=== PATIENT | female | born 1965 | race Caucasian/White ===

== ENCOUNTER 2020-02-11 06:12 | Day surgery (SDC) | payer OTHER ==
[2020-02-09 14:52] VITALS: BMI 35.4
--- OUTSIDE RECORDS SUMMARY | 2020-02-11 06:19 | XMS ---
:1965 Author Organization [facility] Care Team Providers Name Role Phone BANDAR SWIFT Unavailable Unavailable Re-disclosure Warning The records that you are about to access may contain information from federally- assisted alcohol or drug abuse programs. If such information is present, then the following federally mandated warning applies: This information has been disclosed to you from records protected by federal confidentiality rules (42 CFR part 2). The federal rules prohibit you from making any further disclosure of this information unless further disclosure is expressly permitted by the written consent of the person to whom it pertains or as otherwise permitted by 42 CFR part 2. A general authorization for the release of medical or other information is NOT sufficient for this purpose. The Federal rules restrict any use of the information to criminally investigate or prosecute any alcohol or drug abuse patient.The records that you are about to access may contain highly sensitive health information, the redisclosure of which is protected by Article 27-F of the [place] State Public Health law. If you continue you may haveaccess to information: Regarding HIV / AIDS; Provided by facilities licensed or operated by the [facility] Office of Mental Health; or Provided by the [facility] Office for People With Developmental Disabilities. If such information is present, then the following [facility] mandated warning applies: This information has been disclosed to you from confidential records which are protected by state law. State law prohibits you from making any further disclosure of this information without the specific written consent of the person to whom it pertains, or as otherwise permitted by law. Any unauthorized further disclosure in violation of state law may result in a fine or retirement sentence or both. A general authorization for the release of medical or other information is NOT sufficient authorization for further disclosure. Encounters Encounter Providers Location Date Indications Data Source(s ) Outpatient 03/10/2019 05:14:32 [facility] - [facility] PM EDT Hospital Outpatient 02/27/2019 01:00:00 Bon Thomas kendrickadelina Kiah PM EDT - 02/27/2019 [facility] 01:14:35 PM EDT Patient discharged. Outpatient 02/25/2019 04:21:00 PM [facility] 02/25/2019 03:44:26 PM Nabeel jorge Ayala [facility] Outpatient 02/18/2019 11:51:37 AM [facility]T [facility] 02/17/2019 11:22:54 AM [facility] 02/15/2019 03:20:00 AM [facility] 02/15/2019 12:25:00 AM [facility] In[facility] Admitter: HATEM 02/14/2019 12:00:00 AM [facility] 05:58:00 PM EDT Abd pain Patient discharged. Outpatient 01/23/2019 04:11:53 [facility] PM [facility]T [facility] 01/13/2019 05:52:54 [facility] PM [facility] 01/07/2019 11:50:36 [facility] AM [facility]T [facility] 01/03/2019 08:00:00 [facility] AM [facility]T [facility] 01/02/2019 02:10:00 [facility] PM [facility]T [facility] In[facility] Admitter: HATEM 01/02/2019 12:00:00 abd pain na usea [facility] - Good [facility] AM EDT - 01/06/2019 and vomiting [facility] 06:17:00 PM EDT abd pain nausea and vomiting Patient discharged. Inpatient 01/02/2019 12:00:00 AM EDT [facility] Medications Medication Brand Start Product Dose Route Administrative Pharmacy [facility] Indications Reaction Description Data Name Date Form Instructions Instructions Source(s) Ondansetron ondans 02/17/ 4 mg Oral active Take 1 Tab Bon 4 MG etron 2018 by mouth [facility] Disintegrat (ZOFRA 12:00: every eig ht Kiah ing Oral N ODT) 00 AM (8) hours as Health Tablet 4 mg EDT needed for System Inc ondansetron disint Nausea for (ZOFRAN egrati up to 3 ODT) 4 mg ng days. disintegrat tablet ing tablet Acetaminoph HYDROc Oral aborted S/P Take 1 Tab Bon en 325 MG / odone- 2019 {tbl} laparoscopic by mouth [facility] Hydrocodone acetam 12:00: cholecystect e very six Kiah Bitartrate inophe 00 AM sav (6) hours a s Health 5 MG Oral n EDT needed for Syst em Inc Tablet (NORCO Pain for up HYDROcodone ) to 3 days. -acetaminop 5-325 Max Daily hen (NORCO) mg per Amount: 4 5-325 mg tablet Tabs. per tablet S/P laparoscopic cholecystectomy Acetaminophen acetaminophen 02/17/2019 650 Oral active Take 2 Bon 325 MG Oral (TYLENOL) 325 12:00:00 AM mg Tabs by [facility] Tablet mg tablet EDT mouth Kiah acetaminophen every six H ealth (TYLENOL) 325 (6) hours S ystem mg tablet as needed Inc for Pain for up to 3 days. Ibuprofen 200 ibuprofen 02/17/2019 600 Oral active Take 3 Bon MG Oral Tablet (ADVIL) 200 mg 12:00:00 AM mg Tabs by [facility] ibuprofen tablet EDT mouth Kiah (ADVIL) 200 mg every six Health tablet (6) hours System as needed Inc for Pain for up to 3 days. Hydromorphone HYDROmorphone 02/16/2019 1 mg IntraVENou compl eted 1 mg, Bon Hydrochloride (PF) 01:25:37 PM s Intr aVENo [facility] 1 MG/ML (DILAUDID) EDT us, EVERY C harity Injectable injection 1 mg 4 HO URS [facility] System HYDROmorphone NEEDED, Inc (PF) Starting (DILAUDID) Sun injection 1 mg 02/16/19 at 1325, Until Sun02/17/19 at 1324, Severe Pain Medication administered onsite Metoprolol metoprolol 02/16/2019 50 Oral aborted hypertens ion 50 mg, Oral, Bon Tartrate 50 tartrate 09:00:00 AM mg 2 TIMES [facility] MG Oral (LOPRESSOR) EDT DAILY, Fir [facility] Tablet tablet 50 mg dose on [facility] metoprolol 02/16/19 at s tem tartrate 0900, Until Inc (LOPRESSOR) Discontinued tablet 50 mg hypertension Medication administered onsite atorvastatin atorvastatin 02/15/2019 10 Oral aborted 10 mg, Oral, Bon 10 MG Oral (LIPITOR) 09:00:00 PM mg EV FREDERICK [facility] Tablet tablet 10 mg EDT BEDTIME, [facility] First dose o [facility] (LIPITOR) 02/15/19 [facility] tem tablet 10 mg at 2100, Inc Until Discontinued Medication administered onsite dextrose 0617-9022-48 02/15/2019 50 IntraVENous aborted 50 mL/hr, at Bon 5% and 07:00:00 PM mL/h 50 mL/hr, S [facility] 0.9% NaCl EDT IntraVENous, Ch arity infusion CONTINUOUS, Heal th Starting Sat System 02/15/19 at Inc 1900, Until Sun02/17/19 at 2058 Medication administered onsite Bacitracin bacitracin 02/15/2019 Topical aborted Topical, Bon 0.5 UNT/MG 500 06:37:48 PM NEEDED, [facility] Topical unit/gram EDT Starting Clara rity Ointment ointment 02/15/19 [facility] bacitracin at 1837, Syste m 500 unit/gram Until Mon I nc ointment 02/17/19 at 2058, Other, skin abrasions Medication administered onsite Insulin insulin 02/15/2019 SubCUTAneous aborted SubCUTAneous, Bon Lispro 100 lispro 12:00:00 PM EVERY 6 HOURS, [facility] UNT/ML (HUMALOG) EDT First dose on Kiah Injectable injection Sat at Health Solution 1200, Until Syst em insulin Discontinued Inc lispro (HUMALOG) injection Medication administered onsite Metoprolol metoprolol 02/15/2019 100 Oral completed 100 mg, Bon Tartrate 100 tartrate 11:00:00 AM mg O ral, [facility] MG Oral (LOPRESSOR) EDT ONCE, 1 Ch arity Tablet tablet 100 mg dose, [facility] metoprolol 02/15/19 System tartrate at 1100 Inc (LOPRESSOR) tablet 100 mg Medication administered onsite 1 ML heparin 02/15/2019 5000 SubCUTAneous aborted 5,000 Units, Bon heparin (porcine) 09:00:00 AM U SubCU TAneous, [facility] sodium, injection EDT EVERY 8 HOUR S, Kiah porcine 5,000 First dose on He alth 5000 UNT/ML Units 02/15/19 at System Injection 0900, Until Inc heparin Discontinued (porcine) injection 5,000 Units Medication administered onsite ondansetron 64762-306-98 02/15/2019 4 IntraVENous aborted 4 mg, Bon (ZOFRAN) 08:01:05 AM mg IntraVENo us, [facility] injection 4 EDT EVERY 4 HOURS Kiah mg NEEDED, Health Starting Sat System 02/15/19 at Inc 0801, Until Sun02/17/19 at 2058, Nausea or Vomiting Medication administered onsite Diphenhydramine diphenhydrAMINE 02/15/2019 25 Oral aborted 25 mg, Bon Hydrochloride 25 (BENADRYL) 08:01:05 AM mg Oral, [facility] MG Oral Capsule capsule 25 mg EDT EVERY 4 Kiah diphenhydrAMINE HOURS Health (BENADRYL) NEEDED, System capsule 25 mg Starting In c 02/15/19 at 0801, Until Sun02/17/19 at 2058, Itching Medication administered onsite Acetaminophen 325 MG / HYDROcodone-acetaminophen 02/15/2019 1 Or al aborted 1 Tab, Bon Hydrocodone Bitartrate 5 (NORCO) 5-325 mg per 08:01:05 AM {tbl} Oral, [facility] MG Oral Tablet tablet 1 Tab EDT EV FREDERICK 4 Kiah HYDROcodone-acetaminophen HOURS Health (NORCO) 5-325 mg per NEED ED, System tablet 1 Tab Starting Inc 02/15/19 at 0801, Until Sun02/17/19 at 2058, Moderate Pain Medication administered onsite Hydromorphone HYDROmorphone 02/15/2019 1 IntraVENous comp leted 1 mg, Bon Hydrochloride (PF) 08:01:05 AM mg Intr aVENous, [facility] 1 MG/ML (DILAUDID) EDT EVERY 4 MONICA RS Kiah Injectable injection 1 mg N EEDED, Health Solution Starting Sat Sys tem HYDROmorphone 02/15/19 at Inc (PF) 0801, Until (DILAUDID) 02/16/19 injection 1 mg at 0800, Severe Pain Medication administered onsite Glucose 0.4 dextrose 02/15/2019 15 g Oral aborted 1 Tube (15 g), Bon MG/MG Oral 40% 08:01:05 AM Oral, A S [facility] Gel dextrose (GLUTOSE) EDT NEEDED, Kiah 40% oral gel 1 Starting Sat H ealth (GLUTOSE) Tube 02/15/19 at Syst em oral gel 1 08, Until In c Tube 02/17/19 at 2058, Hypoglycemia Medication administered onsite Acetaminophen acetaminophen 02/15/2019 650 Oral aborted 650 mg, Bon 325 MG Oral (TYLENOL) 08:01:05 AM mg O ral, [facility] Tablet tablet 650 mg EDT EVERY 4 C harity acetaminophen HOURS He alth (TYLENOL) NEEDED, System tablet 650 mg Starting In c 02/15/19 at 0801, Until 02/17/19 at 2058, Mild Pain, Fever Medication administered onsite Glucagon 1 glucagon 02/15/2019 1 IntraMUSCular aborted 1 mg, Bon MG (GLUCAGEN) 08:01:05 AM mg IntraMU SCular, [facility] Injection injection 1 EDT NEEDE D, Kiah glucagon mg Starting Sat Hea lth (GLUCAGEN) 02/15/19 at Sys tem injection 1 800, Until M on Inc mg 02/17/19 at 2058, Hypoglycemia Medication administered onsite dextrose 0202-3788-27 02/15/2019 IntraVENous aborted 12.5-25 g Bon (D50) 08:01:05 AM (25-50 mL), [facility] infusion EDT IntraVENous, Clara rity 12.5-25 g NEEDED, Heal th Starting Sat System 02/15/19 at Inc 0801, Until 02/17/19 at 2058, Hypoglycemia Medication administered onsite Magnesium magnesium 02/15/2019 30 Oral aborted 3 0 mL, Oral, Bon Hydroxide 80 hydroxide 08:01:05 AM mL DAILY PRN, [facility] MG/ML Oral (MILK OF EDT Starting S at Kiah Suspension MAGNESIA) 02/15/19 a t Health magnesium 400 mg/5 mL 08, Un til System hydroxide oral Mon 02/17/19 at Inc (MILK OF suspension 2058, MAGNESIA) 30 mL Constipation 400 mg/5 mL oral suspension 30 mL Medication administered onsite piperacillin-tazobactam 02/15/2019 3.375 IntraVENous ab orted 3.375 g, Bon (ZOSYN) 3.375 g in 0.9% 05:42:00 AM g IntraVENous, [facility] sodium chloride EDT EVERY 8 H OURS, [facility] (MBP/ADV) 100 mL MBP Firs t dose on Health 02/15/19 at Syste m 0542, Until Inc Discontinued, at 25 mL/hr Medication administered onsite diphenhydrAMINE 86435-850-45 02/15/2019 25 IntraVENous com pleted 25 mg, Bon (BENADRYL) 03:55:00 AM mg IntraVE Nous, [facility] injection 25 mg EDT NOW, 1 do se, Kiah 02/15/19 Health at 0355 System Inc Medication administered onsite Hydromorphone HYDROmorphone 02/15/2019 completed 1 dose, Bon Hydrochloride 1 (PF) (DILAUDID) 12:45:56 AM Starting [facility] MG/ML 1 mg/mL EDT Sat Kiah Injectable injection 02/15/19 a Health Solution 0045, System HYDROmorphone Until Sat I nc (PF) (DILAUDID) 02/15/19 a t 1 mg/mL 1247 injection Medication administered onsite Hydromorphone HYDROmorphone 02/15/2019 1 IntraVENous comp leted 1 mg, Bon Hydrochloride (PF) 12:39:00 AM mg Intr aVENous, [facility] 1 MG/ML (DILAUDID) EDT NOW, 1 dose , Kiah Injectable injection 1 mg 02/15/19 Health Solution at 0039 System HYDROmorphone Inc (PF) (DILAUDID) injection 1 mg Medication administered onsite iopamidol [id number] 02/15/2019 100 IntraVENous completed 100 mL, Bon (ISOVUE 12:23:00 AM mL IntraVENou s, [facility] 300) 61 % EDT RAD ONCE, 1 Clara rity contrast dose, Sat Health injection 02/15/19 at Syst em 100 mL 0023 Inc Medication administered onsite sodium 55700-280-14 02/14/2019 IntraVENous aborted 5-40 mL, Bon chloride 10:00:00 PM IntraVENo us, [facility] (NS) flush EDT EVERY 8 Charit y 5-40 mL HOURS, First Heal th dose on Fri System 02/14/19 at Inc 2200, Until Discontinued Medication administered onsite sodium 1144-5154-41 02/14/2019 1000 IntraVENous completed 1,000 mL, Bon chloride 09:40:00 PM mL IntraVENo us, [facility] 0.9 % EDT 1 dose Kiah bolus Health infusion System 1,000 mL Inc Medication administered onsite ondansetron 77936-323-79 02/14/2019 4 IntraVENous complet ed 4 mg, Bon (ZOFRAN) 09:40:00 PM mg IntraVENo us, [facility] injection 4 EDT NOW, 1 dose, Kiah mg 02/14/19 Health at [address] [facility] Medication administered onsite diatrizoate sari-diatrizoat [id number] 02/14/2019 30 Oral compl eted 30 mL, Bon sod 09:40:00 PM mL Oral, [facility] (-GASTROVIEW,GASTROGRAFIN) EDT RAD Kiah 66-10 % contrast solution 30 ONCE, 1 Health mL dose, System Fri [facility] 02/14/19 at 2140 Medication administered onsite fentaNYL [id number] 02/14/2019 50 IntraVENous completed 50 mcg, Bon citrate 09:40:00 PM ug IntraVENou s, [facility] (PF) EDT NOW, 1 dose, Kiah injection 02/14/19 Hea lth 50 mcg at [address] [facility] Medication administered onsite sodium 95854-522-32 02/14/2019 IntraVENous aborted 5-40 mL, Bon chloride 09:38:29 PM IntraVENo us, [facility] (NS) flush EDT NEEDED, Clara rity 5-40 mL Starting Fri Heal 02/14/19 at System 2138, Until Inc 02/17/19 at 2059, Line Patency Medication administered onsite atorvastatin 10 atorvastatin 10 Oral active Take 10 mg by Bon MG Oral Tablet (LIPITOR) 10 mg mo uth daily. [facility] atorvastatin mg tablet Ch arity (LIPITOR) 10 mg Heal th tablet System Inc OTHER Oral active Take by Bon mouth daily. [facility] Vitamin D, [facility] Calcium, Health fiber, System Vitamin B12 Inc (all OTC) Metformin metformin 500 Oral aborted Take 50 0 mg Bon hydrochloride (GLUCOPHAGE) mg by mouth [facility] 500 MG Oral 500 mg tablet joshua y. [facility] Tablet Health metformin System (GLUCOPHAGE) Inc 500 mg tablet Metoprolol metoprolol 100 Oral active hypertension Take 100 mg Bon Tartrate 50 MG (LOPRESSOR) 50 mg by mouth [facility] Oral Tablet mg tablet daily. [facility] metoprolol Indications: H ealth (LOPRESSOR) 50 HYPERTENSI ON System mg tablet Inc hypertension canagliflozin (INVOKANA Oral active Take by mouth. [facility] PO) [facility] Insurance Providers Payer name Policy type Policy ID Covered Covered green party's Policy P ovi / Coverage green party ID relationship to [place] Inf ormation type dut[facility] [id number] NON CAP [facility] [id number] [facility] [id number] 100% DISCOUNT [facility] CHOICE [id number] PLUS Medicaid BBA D [id number] SELF [id number] K WELLCARE I 1954 SELF [id number] ESSENTAL - [id number] [facility] Wellcare [place] I [id number] SELF [id number] K [facility] [id number] 100% DISCOUNT [facility] [id number] HEALTHCARE [place] [id number] HEALTHCARE [facility] CHOICE [id number] PLUS [facility] [id number] [facility] [id number] CARE MEDICAID [place] [id number] BRITT SELF PAY Self Pay [id number] SELF PAY [id number] SELF PAY [id number] [facility] [id number] MEDICAID Problems, Conditions, and Diagnoses Code Display Name Description Problem Type Effective Data Dates Source(s) K80.00 Acute calculous Acute calculous [id number] 02/15/2019 [facility] cholecystitis cholecystitis 12:00:00 AM [facility] K56.609 SBO (small bowel SBO (small bowel [id number] 01/02/2019 Nabeel n [facility] obstruction) obstruction) 12:00:00 AM [facility] M65.30 Trigger finger of Trigger finger of [id number] 12/08/2013 [facility] left hand left hand 12:00:00 AM [facility] K80.00 Calculus of Calculus of Diagnosis 02/14/2019 [facility] - Good gallbladder with gallbladder with 08:54:44 PM [facility] acute acute cholecystitis EDT [facility] cholecystitis without obstruction without obstruction K81.0 Acute Acute cholecystitis Diagnosis 02/14/2019 [facility] - Good cholecystitis 08:54:44 PM [facility] K56.609 Unspecified Unspecified Diagnosis 01/02/2019 [facility] - Good intestinal intestinal 11:51:16 AM [facility] obstruction, obstruction, EDT Hospital unspecified as to unspecified as to partial versus partial versus complete complete obstruction obstruction 1255 1255 hypertension Diagnosis [facility] [id number] S/P laparoscopic Diagnosis [facility] cholecystectomy [facility] 1255 1255 hypertension Diagnosis [facility] Surgeries/Procedures Procedure Description Date Indications Data Source(s) GLUCOSE, POC GLUCOSE, POC Routine 02/17/2019 02/17/2019 Bon 2:40 PM EDT 06:40:00 [facility] CHOLECYSTECTOMY CHOLECYSTECTOMY 02/17/2019 cholecystitis 02/17/2019 Bon LAPAROSCOPIC LAPAROSCOPIC 11:54 AM , 03:54:00 PM [facility] EDT cholelithiasi EDT - Ch arity s 02/17/2019 Healt h 05:56:00 PM Syst em EDT Inc GLUCOSE, POC GLUCOSE, POC Routine 02/17/2019 02/17/2019 Bon 11:11 AM 03:11:00 PM [facility] PROTHROMBIN TIME PROTHROMBIN TIME Routine 02/17/2019 Bon + INR + INR 5:59 AM EDT 09:59:00 AM [facility] CBC WITH CBC WITH Routine 02/17/2019 02/17/2019 Bon AUTOMATED DIFF AUTOMATED DIFF 5:59 AM EDT 09:59: 00 AM [facility] [employer] PTT PTT Routine 02/17/2019 02/17/2019 Nabeel n 5:59 AM EDT 09:59:00 AM [facility] [employer] METABOLIC PANEL, METABOLIC PANEL, Routine 02/17/2019 Bon BASIC BASIC 5:59 AM EDT 09:59:00 AM [facility] [employer] GLUCOSE, POC GLUCOSE, POC Routine 02/17/2019 02/17/2019 Bon 5:52 AM EDT 09:52:00 AM [facility] [employer] GLUCOSE, POC GLUCOSE, POC Routine 02/17/2019 02/17/2019 Bon 12:23 AM 04:23:00 AM [facility] CHEST PORT XR CHEST PORT Routine 02/16/2019 9 Bon 4:51 PM EDT 08:51:15 PM [facility] [employer] GLUCOSE, POC GLUCOSE, POC Routine 02/16/2019 02/16/2019 Bon 4:38 PM EDT 08:38:00 PM [facility] [employer] GLUCOSE, POC GLUCOSE, POC Routine 02/16/2019 02/16/2019 Bon 12:43 PM 04:43:00 PM [facility] ABD W MRCP MRI ABD W MRCP Routine 02/16/2019 019 Bon WO CONT WO CONT 12:04 PM 04:04:47 PM Sec ne [facility] [employer] GLUCOSE, POC GLUCOSE, POC Routine 02/16/2019 02/16/2019 Bon 5:55 AM EDT 09:55:00 AM [facility] [employer] CBC WITH CBC WITH Routine 02/16/2019 02/16/2019 Bon AUTOMATED DIFF AUTOMATED DIFF 4:45 AM EDT 08:45: 00 AM [facility] [employer] METABOLIC PANEL, METABOLIC PANEL, Routine 02/16/2019 Bon BASIC BASIC 4:45 AM EDT 08:45:00 AM [facility] [employer] HEPATIC FUNCTION HEPATIC FUNCTION Routine 02/16/2019 Bon PANEL PANEL 4:45 AM EDT 08:45:00 AM [facility] [employer] HC GLUCOSE POCT HC GLUCOSE POCT Routine 02/16/201902/16 Bon 12:06 AM 04:06:00 AM Sec [facility] GLUCOSE, POC GLUCOSE, POC Routine 02/15/2019 02/15/2019 Bon 4:13 PM EDT 08:13:00 PM [facility] HEMOGLOBIN A1C HEMOGLOBIN A1C Blood in 02/15/20192018 Bon W/O EAG W/O EAG Lab 12:05 PM 04:05:00 PM Sec [facility] CBC W/O DIFF CBC W/O DIFF STAT 02/15/2019 02/15/2019 Bon Blood in 12:05 PM 04:05:00 PM Se cours Lab [facility] METABOLIC PANEL, METABOLIC PANEL, STAT 02/15/2019 Bon COMPREHENSIVE COMPREHENSIVE Blood in 12:05 PM 04:05:00 [facility] GLUCOSE, POC GLUCOSE, POC Routine 02/15/2019 02/15/2019 Bon 11:42 AM 03:42:00 PM Sec [facility] HC GLUCOSE POCT HC GLUCOSE POCT Routine 02/15/201902/15 Bon 8:24 AM EDT 12:24:00 PM [facility] US ABD LTD US ABD LTD STAT 02/15/2019 02/15/2019 Bon 3:43 AM EDT 07:43:30 AM [facility] CT ABD PELV W CT ABD PELV W STAT 02/15/2019 9 Bon CONT CONT 12:50 AM 04:50:26 AM Sec [facility] URINALYSIS W/ URINALYSIS W/ STAT 02/14/2019 9 Bon RFLX MICROSCOPIC RFLX MICROSCOPIC 10:05 PM 02:05 :00 AM [facility] CBC WITH CBC WITH STAT 02/14/2019 02/15/2019 Bon AUTOMATED DIFF AUTOMATED DIFF 10:05 PM 02:05:00 AM [facility] METABOLIC PANEL, METABOLIC PANEL, STAT 02/14/2019 Bon COMPREHENSIVE COMPREHENSIVE 10:05 PM 02:05:00 AM [facility] LIPASE LIPASE STAT 02/14/2019 02/15/2019 Nabeel n 10:05 PM 02:05:00 AM Sec ne [facility] GLUCOSE, POC GLUCOSE, POC Routine 01/06/2019 01/06/2019 Bon 4:11 PM EDT 08:11:00 PM [facility] GLUCOSE, POC GLUCOSE, POC Routine 01/06/2019 01/06/2019 Bon 12:09 PM 04:09:00 PM Sec ne [facility] GLUCOSE, POC GLUCOSE, POC Routine 01/06/2019 01/06/2019 Bon 7:05 AM EDT 11:05:00 AM [facility] CBC WITH CBC WITH Routine 01/06/2019 01/06/2019 Bon AUTOMATED DIFF AUTOMATED DIFF 4:01 AM EDT 08:01: 00 AM [facility] METABOLIC PANEL, METABOLIC PANEL, Routine 01/06/2019 Bon BASIC BASIC 4:01 AM EDT 08:01:00 AM [facility] GLUCOSE, POC GLUCOSE, POC Routine 01/05/2019 01/06/2019 Bon 8:24 PM EDT 12:24:00 AM [facility] GLUCOSE, POC GLUCOSE, POC Routine 01/05/2019 01/05/2019 Bon 4:37 PM EDT 08:37:00 PM [facility] XR ABD (KUB) XR ABD (KUB) Routine 01/05/2019 01/05/2019 Bon 12:00 PM 04:00:33 PM Sec ne [facility] HC GLUCOSE POCT HC GLUCOSE POCT Routine 01/05/201901/05 Bon 11:33 AM 03:33:00 PM Sec ne [facility] CBC WITH CBC WITH Routine 01/05/2019 01/05/2019 Bon AUTOMATED DIFF AUTOMATED DIFF 6:45 AM EDT 10:45: 00 AM [facility] Aviir METABOLIC PANEL, METABOLIC PANEL, Routine 01/05/2019 Bon BASIC BASIC 6:45 AM EDT 10:45:00 AM [facility] GLUCOSE, POC GLUCOSE, POC Routine 01/04/2019 01/05/2019 Bon 8:56 PM EDT 12:56:00 AM [facility] [employer] GLUCOSE, POC GLUCOSE, POC Routine 01/04/2019 01/04/2019 Bon 5:18 PM EDT 09:18:00 PM [facility] [employer] GLUCOSE, POC GLUCOSE, POC Routine 01/04/2019 01/04/2019 Bon 4:25 PM EDT 08:25:00 PM [facility] [employer] GLUCOSE, POC GLUCOSE, POC Routine 01/04/2019 01/04/2019 Bon 11:23 AM 03:23:00 PM [facility] [employer] XR ABD (AP AND XR ABD (AP AND Routine 01/04/2019 019 Bon ERECT OR DECUB) ERECT OR DECUB) 10:32 AM 02:32:2 0 PM [facility] [employer] HC GLUCOSE POCT HC GLUCOSE POCT Routine 01/04/201901/04 Isaiah 8:21 AM EDT 12:21:00 PM [facility] [employer] CBC WITH CBC WITH Routine 01/04/2019 01/04/2019 Isaiah AUTOMATED DIFF AUTOMATED DIFF 3:22 AM EDT 07:22: 00 AM [facility] [employer] HC TROPONIN I HC TROPONIN I Blood in 01/04/2019 01/05/20 19 Isaiah QUANT QUANT Lab 3:22 AM EDT 07:22:00 AM [facility] [employer] METABOLIC PANEL, METABOLIC PANEL, Routine 01/04/2019 Isaiah BASIC BASIC 3:22 AM EDT 07:22:00 AM [facility] SHOP.CA GLUCOSE, POC GLUCOSE, POC Routine 01/03/2019 01/04/2019 Bon 8:53 PM EDT 12:53:00 AM [employer] CTA CHEST W OR W CTA CHEST W OR W STAT 01/03/2019 Isaiah WO CONT WO CONT 8:44 PM EDT 12:44:56 AM [facility] [employer] GLUCOSE, POC GLUCOSE, POC Routine 01/03/2019 01/03/2019 Bon 4:06 PM EDT 08:06:00 PM [facility] [employer] TROPONIN I TROPONIN I STAT 01/03/2019 01/03/2019 Bon 2:46 PM EDT 06:46:00 PM [facility] EKG, 12 LEAD, EKG, 12 LEAD, STAT 01/03/2019 9 Bon INITIAL INITIAL 2:41 PM EDT 06:41:37 PM [facility] EKG, 12 LEAD, EKG, 12 LEAD, STAT 01/03/2019 9 Bon INITIAL INITIAL 2:39 PM EDT 06:39:34 PM [facility] GLUCOSE, POC GLUCOSE, POC Routine 01/03/2019 01/03/2019 Bon 12:19 PM 04:19:00 PM Sec ours EDT [facility] HC GLUCOSE POCT HC GLUCOSE POCT Routine 01/03/201901/03 Bon 10:04 AM 02:04:00 PM [facility] (AP AND XR ABD (AP AND Routine 01/03/2019 019 Bon ERECT OR DECUB) ERECT OR DECUB) 8:48 AM EDT 12:4 8:53 PM [facility] CBC WITH CBC WITH Routine 01/03/2019 01/03/2019 Isaiah AUTOMATED DIFF AUTOMATED DIFF 4:38 AM EDT 08:38: 00 AM [facility] HC TROPONIN I HC TROPONIN I STAT 01/03/2019 9 Bon QUANT QUANT 4:38 AM EDT 08:38:00 AM [facility] METABOLIC PANEL, METABOLIC PANEL, Routine 01/03/2019 Isaiah BASIC BASIC 4:38 AM EDT 08:38:00 AM [facility] TROPONIN I TROPONIN I STAT 01/02/2019 01/03/2019 Bon 11:59 PM 03:59:00 AM Sec ours EDT [facility] LIPID PANEL LIPID PANEL STAT 01/02/2019 01/03/2019 Bon 11:59 PM 03:59:00 AM Sec ours EDT [facility] XR ABD (KUB) XR ABD (KUB) STAT 01/02/2019 01/02/2019 Bon 6:23 PM EDT 10:23:28 [facility] CT ABD PELV W CT ABD PELV W STAT 01/02/2019 9 Isaiah CONT CONT 4:38 PM EDT 08:38:48 [facility] URINALYSIS W/ URINALYSIS W/ STAT 01/02/2019 9 Isaiah RFLX MICROSCOPIC RFLX MICROSCOPIC 1:52 PM EDT 05 :52:00 PM [facility] CBC WITH CBC WITH STAT 01/02/2019 01/02/2019 Isaiah AUTOMATED DIFF AUTOMATED DIFF 12:20 PM 04:20:00 PM [facility] EDT [facility] HC TROPONIN I HC TROPONIN I STAT 01/02/2019 9 Isaiah QUANT QUANT 12:20 PM 04:20:00 PM Sec ours EDT [facility] METABOLIC PANEL, METABOLIC PANEL, STAT 01/02/2019 Isaiah COMPREHENSIVE COMPREHENSIVE 12:20 PM 04:20:00 PM [facility] EDT [facility] [employer]OP[employer]CA LIPASE LIPASE STAT 01/02/2019 01/02/2019 Nabeel n 12:20 PM 04:20:00 PM [facility] HC GLUCOSE POCT HC GLUCOSE POCT Routine 01/02/201901/02 Bon 11:38 AM 03:38:00 PM Sec ours EDT [facility] EKG, 12 LEAD, EKG, 12 LEAD, STAT 01/02/2019 9 Isaiah INITIAL INITIAL 11:37 AM 03:37:10 PM [facility] 2D ECHO COMPLETE 2D ECHO COMPLETE Routine 01/02/2019 Isaiah ADULT (TTE) W OR ADULT (TTE) W OR 12:00 AM 04:00 :00 AM [facility] WO CONTRAST WO CONTRAST EDT [facility] Results ID Date Data Source [id number] 10/21/2019 05:00:00 PM EDT [facility] Name Value Range Interpretation Code Description Data Gissell rce(s) Supporting Document(s ) SARS-CoV-2 [facility] RNA Resp Ql BENNY+probe This lab was ordered by [employer] and reported by [facility] DLMP. ID Date Data Source [id number] 10/14/2019 12:00:00 PM EDT [facility] Name Value Range Interpretation Code Description Data Gissell rce(s) Supporting Document(s ) SARS-CoV-2 [facility] RNA Resp Ql BENNY+probe This lab was ordered by [employer] and reported by [facility]. ID Date Data Source [id number] 09/24/2019 11:00:00 AM EDT [facility] Name Value Range Interpretation Code Description Data Gissell rce(s) Supporting Document(s ) SARS-CoV-2 [facility] RNA Resp Ql BENNY+probe This lab was ordered by [employer] and reported by [facility]. ID Date Data Source [id number] 08/20/2019 12:00:00 PM EDT [facility] Name Value Range Interpretation Description Data Sup porting Code Source(s) Document(s ) SARS CoV-2 [facility] Interpretation This lab was ordered by [facility] and reported by [employer]. ID Date Data Source [id number] 03/10/2019 05:14:[address] [facility] RICHA # [id number] to telephone patient. Received message. Left message. Name Value Range Interpretation Code Description Data Gissell rce(s) Supporting Document(s ) ID Date Data Source [id number] 02/25/2019 04:21:[address] [facility] RICHA CallSpoke with patient. De nied any abd pain. Following a low fat diet. DiscussedDM-glucose yesterday 98, did no t test yet todayHow are you feeling since my last call to you?betterDid you attend yo ur follow up appointment with your MD yet?YESSaw pcpAppt with surgeon 02/27Did your doctor change any of your Rxs at your visit? (only if they had avisit)?YESChan ged pain med from percocet to ibuprofenAre you still taking all your medications?YE SAre you still receiving services that were part of your discharge plan?N/AFollow Up call again [phone] Name Value Range Interpretation Code Description Data Gissell rce(s) Supporting Document(s ) ID Date Data Source [id number] 02/20/2019 02:50:[address] [facility] XR ABD (KUB) (Final result)Result time 0 01/02/19 18:30:22Final result by Pilar Agustin DO (01/02/19 18:30:22)Impression : IMPRESSION:1. NGT good position as above.2. Left midabdomen ileus; no obstr uction or free air identified.Narrative: XR ABD (KUB)PRIOR: NoneHISTORY: Limited to that provided by the emergency department at the time of theexamination; Patient comp laining of chest pain, abdominal pain with n/v thatstarted yesterday. FINDINGS: An NGT is present and in good position. Mild mid left sided abdominalileus is identif ied. No abnormal densities are identified. No bowel wallthickening, pneumatosis or ankur e air is identified in the visualized limitedabdomen/upper pelvis.The visualiz ed osseous structures are unremarkable for age.Radiology interpretation reviewed by Benjamin Garner, Benjamin Green MDI, Anya Arriola am serving as a scribe to document services personallyperformed by Benjamin Garner MD based on my observ ation and the provider'sstatements to me.I attest the person(s) noted above, acting as my scribe(s), has/have observed myperformance of the services and has do cumented them in accordance with mydirection. I have personally reviewed the above inf ormation and have ordered andreviewed the diagnostic studies, unless otherwise not ed.Benjamin Garner MD Name Value Range Interpretation Code Description Data Gissell rce(s) Supporting Document(s ) ID Date Data Source [id number] 02/18/2019 11:51:[address] [facility] Transitions of Care Call Completed. All follow up questions answered.Understands medications and discharge instructions.C all to patient [phone]. Received VM message. LEft messageConversed with darcie stephany Joshua: [phone] (emergency contact)S/p lap choleHow are you feeling since being discharged from the hospital?better denies fever and abdomin al pain today.Currently visiting her PCP this amTolerating clear liquids: no n/vSurgic al strips : dry and intact. Not sure what her blood sugar was this am-butbelieves it w as stableVoiding - not sure if she had a BM since surgery (02/17/19)Advised she shoul d have one by the third day after surgery - or perhaps she cantake a supplement and /or advise surgeon if still unable to go She is agreeableto advise herHave you made y our follow-up appointment with your physician yet?YESHave you filled your Rx yet?YES h as all medicationsDo you have someone close to you who can assist you if you need he lp?YES Resides with her 20 yr old grand daughterDid you receive any services sin ce you have been home that were part of yourdischarge plan?N/ADo you feel well e ducated on the d/c plan items that you are responsible for?YES Name Value Range Interpretation Code Description Data Gissell rce(s) Supporting Document(s ) ID Date Data Source [id number] 02/17/2019 06:42:[address] [facility] DISCHARGE SUMMARYPatient Name: Verito Chapman fredonkoDOB: 1965Age: 53 y.o.Sex: femaleMRN: [id number]: [id number] dmit Date: 02/14/2019Discharge date and time:02/17/2019 5:02 PMAdmitting Physici an: Bandar Swift, MDDischarge Physician: Carolyn Parker, PAAdmission Diagnoses: Ac lime calculous cholecystitis [K80.00]Discharge Diagnoses:Hospital Problems Date Review ed: 02/15/2019 Codes Class Noted POA Acute calculous cholecystitis ICD-10-CM: K80.00ICD-9-CM: 574.00 02/15/2019 UnknownHTNDMIIAdmission Condition: stabl eDischarged Condition: stableIndication for Admission:Hospital Course: 53 year old f emale admitted with abdominal pain. Abd US withdistended gallbladder, gallstones an d dilated CBD. MRCP with distendedgallbladder with multiple gallstones. No definite fi lling defect to suggestcholedocholithiasis. Lap caty performed 02/17.Consults: lorena peres, Dr. LakhtariaSignificant Diagnostic Studies: Ct Abd Pelv W ContResult Date: 02/15/2019Referring Physician: MACIEJ CARINA Patient Name: VERITO VELASCO THIS IS AFINAL REPORT FROM [facility] DATE OF SERVICE: 2019-02-15 00:44:25 IMAGES:471 EXAM: CT ABD PELVIS W TECHNIQUE: Helical axial imaging from above the domesof mio phragms through the pubic symphysis following administration of contrastorally and 95 cc of Isovue-300 intravenously. Sagittal and coronalreconstructions were obtained. HI STORY: Abdominal pain. History of SBO.COMPARISON: CT abdomen/pelvis of 12/19. FINDINGS: Volume dependentatelectatic changes are again seen at the imaged deon g bases. The imaged heartremains normal in size and no pericardial effusion is seen . The liver jyqoorct11 cm in length and remains mildly hypodense. The spleen, pa ncreas, and adrenalsremain unremarkable. The gallbladder is more distended on the cur rent exam andthere are again multiple calculi seen. There is now pericholecystic fluid seenwith minimal pericholecystic haziness and these findings were not present on t heprior exam. Normal cortical enhancement is again seen in both kidneys. Bilateralren al cysts, largest in the left kidney in the upper pole and the largest in theright k idney in the peripelvic midpole remains stable. No renal or ureteralcalculi are seen and no hydronephrosis is noted. The urinary bladder isunremarkable. No bowel obstruction is seen on the current exam. The appendixremains normal in caliber withou t signs of appendicitis. Diverticulosis is againnoted of the sigmoid colon without evidence of diverticulitis. The abdominalaorta remains normal in caliber . Mild atherosclerotic calcifications are againseen in the aortoiliac system. No d efinite lymphadenopathy is seen. No ascitesis noted. The previously seen perihepatic a nd pelvic ascites has resolved. Theuterus remains anteverted. No abnormal adnexal masses are seen. Calcifiedinjection granulomas again seen in the buttocks. D egenerative changes again seenin the imaged spine with dextroscoliosis again noted o f the lumbar spine. Noacute osseous changes are noted. A transitional vertebra is no hemalatha at thelumbosacral junction and this appears to represent a lumbarized first sacralsegment.IMPRESSION: 1. Cholelithiasis now with findings indicative of cholecys titis.Correlate with ultrasound. 2. No evidence of small bowel obstruction andr esolution of previously noted ascites. 3. Sigmoid diverticulosis withoutevidence o f diverticulitis. Stable findings as noted above. One or more of thefollowing dose reduction techniques were used: automated exposure control,adjustment of the mA an d/or kV according to patient size, use of iterativereconstructive technique. THIS DOCUMENT HAS BEEN ELECTRONICALLY SIGNEDMariver Dubose MD 02/16/20 01:33 KEVIN Driscoll Please call Imaging On [phone] with questi ons. This report was electronically signedby: Karissa Dubose MD 02/15/2019 01 :34 AMUs Abd LtdResult Date: 02/15/2019US ABD LTD Clinical Data: Findings: Normal-size d liver demonstrates diffuseincreased echogenicity consistent with fatty infil tration. There are no focalhepatic lesions. There are multiple calculi noted within the fundus of thegallbladder without evidence of wall thickening or pericholecystic fl uid.Negative for sonographic Ingram's sign. There is no intra or extra hepatic biled uct dilation. The common bile duct measures 7 mm. Pancreas was not examined.There is no free fluid within the Orellana's pouch. The right kidney rdewjnq21.9 cm. The rig ht kidney shows no focal mass, hydronephrosis, cyst or calculus.IMPRESS ION: Cholelithiasis without sonographic evidence of cholecystitis. Noevidence o f common bile duct dilatation. Hepatic steatosis.Xr Chest PortResult Date: 02/16History: pre op. Hypertension. Gallstones Technique: Portable chest x-r ay02/16/2019 4:51 PM Comparison: No priors. FINDINGS: No focal infiltrate oreffusion is identified. Evaluation of the cardiac silhouette is limited byprojection. The visualized osseous structures appear unremarkable.IMPRESSION: No focal infilt rate or effusionMri Abd W Mrcp Wo ContResult Date: 02/16/2019MRI ABD W MRCP WO CONT HI STORY: Mildly dilated common bile duct. TECHNIQUE: AnMRI of the abdomen/MRCP wit hout contrast was performed. COMPARISON: CT scan ofthe and pelvis dated 02/15/2019 an d an ultrasound of the abdomen dated 02/07/2019.FINDINGS: The common bile duct measures up to 7 mm in diameter which is mildlydilated. It tapers smoothly distal ly. No definite filling defects are identifiedto suggest choledocholithiasis . No intrahepatic biliary duct dilatation isidentified. There is biliary sludge id entified within the gallbladder. There aremultiple filling defects compatible w ith stones. There is mild pericholecysticfluid and wall thickening . The liver, spleen, adrenal glands, pancreas andkidneys appear unremarkable on this n oncontrast exam.IMPRESSION: The gallbladder is distended with fluid and measures 10 cm in longaxis. There are multiple filling defects compatible with gallstones. Ther e ispericholecystic fluid and gallbladder wall thickening. The common bile ductmea sures 7 mm in diameter which is borderline enlarged. No definite fillingdefect is i dentified to suggest choledocholithiasis.Treatments: laparosc opic cholecystectomyDischarge Home Medications:Current Discharge Medication ListSTART taking these medications DetailsHYDROcodone-acetaminophen (NORCO) 5-325 mg per tablet Take 1 Tab by mouth everysix (6) hours as needed for Pain fo r up to 3 days. Max Daily Amount: 4 Tabs.Qty: 12 Tab, Refills: 0 Associated Diagnoses: S/P laparoscopic cholecystectomyondansetron (ZOFRAN ODT) 4 mg disintegrating tablet Take 1 Tab by mouth everyeight (8) hours as needed for Nausea for up to 3 days.Qty: 9 Tab, Refills: 0CONTINUE these medications which have NOT CHANGED Detailscanagliflo zin (INVOKANA PO) Take by mouth.atorvastatin (LIPITOR) 10 mg tablet Take 10 mg by shirley th daily.metoprolol (LOPRESSOR) 50 mg tablet Take 100 mg by mouth daily. Indications: HYPERTENSIONOTHER Take by mouth daily. Vitamin D, Calcium, fiber, Vitamin B12 ( all OTC)Diet: low fat dietActivity: Activity as toleratedDisposition:1. Discharge to HomeFollow-up Information Follow up With Specialties Details Why Contact Info Mark Clancy MD Surgery In 2 weeks [address] [id number] [phone] Samantha Carter MD [facility] [address] [place] [address] [phone] discharge took me greater than 30 minutes. Carolyn Parker, [facility] [place]02 PM Name Value Range Interpretation Code Description Data Gissell rce(s) Supporting Document(s ) ID Date Data Source [id number] 02/17/2019 04:45:[address] [facility] DISCHARGE SUMMARY from NursePATIENT INST RUCTIONS:After general anesthesia or intravenous sedation, for 24 hours or while takingprescription Narcotics: Limit your activities Do no t drive and operate hazardous machinery Do not make important personal or business decisions Do not drink alcoholic beverages If you shukla ve not urinated within 8 hours after discharge, please contact [facility].Report the following to your surgeon: Excessive pa in, swelling, redness or odor of or around the surgical area Temperature over 100.5 Nausea and vomiting lasting longer than 4 hours or if unable to takemedications Any signs of decreased circulation or nerve impairment to extremity: change incolor, persistent numbness, ti ngling, coldness or increase pain Any questionsWhat to do at Home:Recommended activity: Activity as tolerated.If you experience any symptoms , please follow up with MD.* Please give a list of your current medications to your Primary Care Provider.* Please update this list when ever your medications are discontinued, doses are changed, or new medications (including epco-owq-egjxkma products) are added.* Please carry medication information at all times in case of emergencysituations.These are general instructions for a healthy lifestyle:No smoking/ No tobacco products/ Avoid exposure to second hand smokeSurgeon General's Warning: Quitting smoking now greatly reduces serious risk toyour health.Obesity, smoking, and sedentary lifestyle greatly increases your risk forillnessA healthy diet, regular physical exercise & weight monitoring are important formaintaining a healthy lifestyleYou may be retaining fluid if you have a history of heart failure or if yo uexperience any of the following symptoms: Weight gain of 3 pounds or moreovernight or 5 pounds in a week, increased swelling in our hands or feet orshortness of breath while lying flat in bed. Please call your doctor as soon asyou notice any of these symptoms; do not wait until your next office visit.The discharge information has been reviewed with the patient. The patientverbalized understanding.Discharg e medications reviewed with the patient and appropriate educationalmaterials and side effects teaching were provided. Name Value Range Interpretation Code Description Data Gissell rce(s) Supporting Document(s ) ID Date Data Source [id number] 02/17/2019 04:31:[address] [facility] Problem: Falls - Risk ofGoal: *Absence o f FallsDescriptionDocument Enoch Fall Risk and appropriate interventions in the ambreen wsheet.Outcome: Progressing Towards GoalNote:Fall Risk Interventions:Medicat ion Interventions: Patient to call before getting OOBProblem: Patient Education: G o to Patient Education ActivityGoal: Patient/Family EducationOutcome: Progres sing Towards GoalProblem: PainGoal: *Control of PainOutcome: Progressing Towards Goal Goal: *PALLIATIVE CARE: Alleviation of PainOutcome: Progressing Towards Goal Name Value Range Interpretation Code Description Data [facility] rce(s) Supporting Document(s ) ID Date Data Source [id number] 02/18/2019 12:23:[address] [facility] Surgical Pathology ReportName: Mc LAUcession Number: [id number] Date: 02/17/2019MRN: [id number] of : 1965 (Age: 53) FLocation: 4L (GS)Surgeon: MARK ALEGREAttending Physician: SERGIO Goldopy To: Preoperative Diagnosis: Cholecystitis, c holelithiasis Postoperative Diagnosis: Same Clinical History: Laparoscopi c cholecystectomy Specimen(s) Received: A: Gallbladder Final Patholog ic Diagnosis: Gallbladder, cholecystectomy: Chronic active cholecystitis with ch olelithiasis. [facility]/02/18/2019Electronically Signed Ou t Brandt Hayes M.D.Gross Description: Received in formalin labeled gallbladder is a 8.7 x 4.0x 3.5 cm intact gallbladder. No pericystic lymph node is identified. Theserosa is portillo-pink and smooth. The specimen is opened to show a pink redvel vety to focally sclerotic mucosa, with a wall thickness that measuresup to 1.0 cm. The lumen contains abundant bile admixed with multipleyellow-black firm stones that me asure up to 0.6 cm in greatest dimension.Wax Cutter sections are zambrano bmitted in one cassette.[facility]/02/18/2019 Name Value Range Interpretation Code Description Data Gissell rce(s) Supporting Document(s ) ID Date Data Source [id number] 02/17/2019 02:46:[address] [facility] TRANSFER - OUT REPORT:Verbal report give n to Halie ROBERT(name) [facility] - opReport consisted of patient's Situation, Background, Assessment andRec ommendations(SBAR).Information from the following report(s) SBAR, Kardex, OR Sum adrianne, ProcedureSummary, Intake/Output and MAR was reviewed with the receiving nurse.Op portunity for questions and clarification was provided.Patient transported with: TechA s per policy all transporters have received education/training on safe handlingof pa tients and action to be taken in emergency event. Name Value Range Interpretation Code Description Data Gissell rce(s) Supporting Document(s ) ID Date Data Source [id number] 02/17/2019 02:41:[address] [facility] POC Glucose 102 Name Value Range Interpretation Code Description Data Gissell rce(s) Supporting Document(s ) ID Date Data Source [id number] 02/17/2019 02:50:55 PM EDT [facility] Name Value Range Interpretation Description Data Sup porting Code Source(s) Document(s ) Glucose 102 MG/DL 65-110 [facility] [Mass/volume] [facility] Automated test strip ID Date Data Source [id number] 02/17/2019 01:51:[address] [facility] OPERATIVE NOTEPatient: Verito Velasco Sex: femaleDate of : 1965 Age: 53 y.o.Date of Procedur e: 02/17/2019Preoperative Diagnosis: Acute cholecystitis, cholelithiasisPostoperati ve Diagnosis: Acute cholecystitis, cholelithiasisProcedure:Laparoscopic Cho lecystectomySurgeon(s) and Role: Circ-1: Siri Tyson RNCirc-Relief: Princess Comer RNPhysician Recycler: Flori Tellez PAScrub Tech-1: Rodrick Aguilar Tech-Relief: Tin GarciaAnesthesia: GeneralEstimated Blood Los s: 5 ccSpecimens:ID Type Source Tests Collected by Time DestinationA : chaim dder Preservative Gallbladder Mark Alegre MD 02/17/20191:28 PM Pathology Findings: Acute cholecystitisComplications: NoneImplants: NoneIndications:This is a 53 y.o. year-old female who presents with pain in right upper abdomen.She was note d to have acute Cholecystitis based on physical exam and US abdomen.Informed co nsent was obtained for lap cholecystectomy after explaining allpossible risk, benef its and alternatives of surgical procedure.Procedures:Patient was brought to operation room and placed supine on operation table.Compression stocking wer e applied to both calves for DVT prophylaxis. Allpressor points were protected with ap propriate bolster and soft foam.With the patient in the supine position under elsie quate general endotrachealanesthesia, the abdomen was prepped and draped as a ster ile field. Surgical timeout was carried out at that point as per WHO recommendations . Pre Operativeantibiotic given as per protocol.Josefina-umbilical incision was mad e and dissection was continued down to theanterior rectus sheath, and vertical incision was made in the linea alba.Peritoneum was identified and was e ntered in under direct vision. A 12 mm trocarwas inserted into the supraumbilic al incision and pneumoperitoneum was createdwith a pressure of 15 mmHg. Perit jeong cavity was inspected, and it was notedthat the gallbladder was distended, acutely inflamed with thick wall andpericholecystic fluid. The patient wa s positioned with head up and right side upin order to maximize visualization of the r ight upper quadrant. Three additional5 mm trocars were placed, one in the epigastr ic region and two in the rightupper quadrant.Blunt and careful sharp dissect ion was continued with the help of the kitner andelectrocautery to separate the gallbl adder from the surrounding omentum. Afterthat, the fundus of the gallbladder was lifted up and the Calot triangle wasretracted towards the right side of t he patient. Again, very careful blunt andsharp dissection was continued in the Calot triangle to identify the cystic ductand cystic artery. The cystic duct a nd artery was skeletonized after separatingit from the surrounding fibrous Structure. Window was created behind the cysticartery to achieve critical view of safety. After that, three metal clips wereplaced on the cystic duct and cystic artery. The cysti c duct and cystic arterywere transected with the help of endoscopic scissors between the second andthird clip. Gallbladder was lifted from the gallbladder fossa with a verycareful blunt and sharp dissection. Minimal bleeding was noted from the live rsurface, which was stopped with the help of electrocautery. Gallbladder wascompletel y from the liver bed and was placed into the EndoCatch bag.Inspection of the right upper quadrant was performed and all the blood wassucked out with the help of the suction chargeback analyst. Once again, the liver bed andthe gallbladder fossa were inspec hemalatha for hemostasis and no bleeding was noted.Trocars were removed under direct vision. Pneumoperitoneum was decompressed.After that, the specimen wa s removed from the peritoneal cavity from 12 mmtrocar site.Umbilical incision was livia sed with 0 Vicryl nznvun-ag-vatav stitch, and skin wasclosed with 4-0 Monocryl. Dressi ng was applied with Steri-Strips, 4 x 4, andTegaderm.The patient tolerated the pr ocedure well, was extubated at the end of theprocedure and was transferred to the recovery room in stable condition.biology research assistant was required for this procedur eAdina CEJA was my firstassistant and was scrubbed and present for the entire case. This was necessaryfor assistance with exposure, retraction, irrigation, hemost asis and eventuallyclosure.Counts: Instrument, sponge, and needle counts we re correct prior to closure andat the conclusion of the case.Signed By: Cristi Alegre MD February 17, 2019 Name Value Range Interpretation Code Description Data Gissell rce(s) Supporting Document(s ) ID Date Data Source [id number] 02/17/2019 01:03:[address] [facility] Care Management InterventionsPCP Verifie d by CM: YesCurrent Support Network: Other([facility])Confirm Follow Up Transpo rt: FamilyFreedom of Choice Offered: YesVeteran Resource Information Provided ?: RefusedDischarge LocationDischarge Placement: Home Name Value Range Interpretation Code Description Data Gissell rce(s) Supporting Document(s ) ID Date Data Source [id number] 02/17/2019 12:05:[address] [facility] Relevant ProblemsNo relevant active prob lemsAnesthetic HistoryNo history of anesthetic complicationsReview of System s / Medical HistoryPatient summary reviewedPulmonary Neuro/Psych Cardiovasc ularHypertensionGI/Hepatic/Renal Endo/OtherDiabetesObesity Other Findings Physical ExamAirwayMallampati: IIITM Distance: 4 - 6 cmNeck ROM: normal range of motionMouth opening: Normal Cardiovascular DentalPulmonaryBreath gissell nds clear to auscultation AbdominalGI exam deferred Other FindingsAnesthetic Ankur A: 2Anesthesia type: general and regional - TAP blockInduction: IntravenousAnestheti c plan and risks discussed with: Patient Name Value Range Interpretation Code Description Data Gissell rce(s) Supporting Document(s ) ID Date Data Source [id number] 02/17/2019 11:30:[address] [facility] Pt to OR with transport Name Value Range Interpretation Code Description Data Gissell rce(s) Supporting Document(s ) ID Date Data Source [id number] 02/17/2019 11:25:36 AM EDT [facility] Name Value Range Interpretation Description Data Sup porting Code Source(s) Document(s ) Glucose 101 MG/DL 65-110 [facility] - Good [Mass/volume] [facility] in Blood by [facility] Automated test strip ID Date Data Source [id number] 02/17/2019 07:47:[address] [facility] Bedside and Verbal shift change report didier roasles to Halie Valadez (oncoming nurse) jon Denney (offgoing nurse). Report given with SBA R, Kardex, ED Summary and MAR. Name Value Range Interpretation Code Description Data Gissell rce(s) Supporting Document(s ) ID Date Data Source [id number] 02/17/2019 07:38:[address] [facility] Name Value Range Interpretation Description Data Sup porting Code Source(s) Document(s ) Sodium 140 136-145 [facility] - Good [Moles/volume] mmol/L [facility] in Serum or Hospital Plasma Potassium 3.6 3.5-5.1 [facility] - Good [Moles/volume] mmol/L [facility] in Serum or Hospital Plasma Chloride 107 98-107 [facility] - Good [Moles/volume] mmol/L [facility] in Serum or Hospital Plasma Carbon 25 21-32 [facility] - Good dioxide, total mmol/L [facility] [Moles/volume] Hospital in Serum or Plasma Anion gap in 11 10-20 [facility] - Good Serum or mmol/L [facility] Plasma Hospital Glucose 78 mg/dL 74-106 [facility] - Good [Mass/volume] [facility] in Serum or Hospital Plasma Urea nitrogen 11 mg/dL 7-18 [facility] - Good [Mass/volume] [facility] in Serum or Hospital Plasma Creatinine 0.61 0.40-1.1 [facility] - Good [Mass/volume] mg/dL 6 [facility] in Serum or Hospital Plasma Glomerular >60 [facility] - Good filtration [facility] rate/1.73 sq M Hospital predicted among blacks [Volume Rate/Area] in Serum or Plasma by Creatinine-bas ed formula (MDRD) Glomerular >60 [facility] - Good filtration [facility] rate/1.73 sq M Hospital predicted among non-blacks [Volume Rate/Area] in Serum or Plasma by Creatinine-bas ed formula (MDRD) Calcium 8.8 8.5-10.1 [facility] - Good [Mass/volume] mg/dL [facility] in Serum or Hospital Plasma ID Date Data Source [id number] 02/17/2019 07:18:24 AM EDT [facility] Name Value Range Interpretation Description Data Sup porting Code Source(s) Document(s ) aPTT in 25.6 SEC 21.0-28. [facility] - Good Platelet poor 0 [facility] plasma by [facility] Coagulation assay Therapeutic Range = 42.0-60.0 secs ID Date Data Source [id number] 02/17/2019 07:18:24 AM [facility] Name Value Range Interpretation Description Data Sup porting Code Source(s) Document(s ) Prothrombin 10.4 sec 9.4-11.1 [facility] - Good time (PT) INR in 1.0 0.8-1.2 [facility] - Good Platelet poor [facility] plasma by [facility] Coagulation assay ID Date Data Source [id number] 02/17/2019 07:11:15 AM [facility]T [facility] Name Value Range Interpretation Description Data Sup porting Code Source(s) Document(s ) Leukocytes 4.9 K/uL 4.8-10.6 [facility] - [#/volume] in Good Blood by [facility] Erythrocytes 4.30 4.20-5.4 [facility] - [#/volume] in M/uL 0 Good Blood by [facility] Hemoglobin 14.1 12.0-16. [facility] - [Mass/volume] in g/dL 0 Good Blood Hematocrit 40.3 % 36.0-47. [facility] - [Volume 0 Good Fraction] of [facility] Blood by [facility] Automated count Erythrocyte mean 93.7 FL 81.0-94. [facility] - corpuscular 0 Good volume [Entitic [facility] volume] by Hospital Automated count Erythrocyte mean 32.8 PG 27.0-35. [facility] - corpuscular 0 [facility] hemoglobin [facility] [Entitic mass] Hospital by Automated count Erythrocyte mean 35.0 30.7-37. [facility] - corpuscular g/dL 3 Good hemoglobin [facility] concentration Hospital [Mass/volume] by Automated count Erythrocyte 12.4 % 11.5-14. [facility] - distribution 0 Good width [Ratio] by [facility] Automated count Hospital Platelets 175 K/uL 130-400 [facility] - [#/volume] in Good Blood by [facility] Automated count Hospital Platelet mean 10.9 FL 9.2-11.8 [facility] - volume [Entitic Good volume] in [facility] by Automated Hospital count Segmented 50 % 48.0-72. [facility] - neutrophils/100 0 Good leukocytes in [facility] Lymphocytes/100 34 % 18.0-40. [facility] - leukocytes in 0 [facility] Monocytes/100 10 % 2.0-12.0 [facility] - leukocytes in [facility] Eosinophils/100 5 % 0.0-7.0 [facility] - leukocytes in [facility] Basophils/100 1 % 0.0-3.0 [facility] - leukocytes in [facility] Segmented 2.4 K/UL 1.5-6.6 [facility] - neutrophils Good [#/volume] in [facility] Lymphocytes 1.7 K/UL 1.5-3.5 [facility] - [#/volume] in [facility] Monocytes 0.5 K/UL 0.0-1.0 [facility] - [#/volume] in [facility] Eosinophils 0.3 K/UL 0.0-0.7 [facility] - [#/volume] in [facility] Basophils 0.0 K/UL 0.0-0.1 [facility] - [#/volume] in [facility] Differential [facility] - cell count Good method - [facility] Immature 0 % 0.0-2.0 [facility] - granulocytes/100 Good leukocytes in [facility] by Hospital Automated count ID Date Data Source [id number] 02/17/2019 06:21:22 AM EDT [facility] Name Value Range Interpretation Description Data Sup porting Code Source(s) Document(s ) Glucose 89 MG/DL 65-110 [facility] [Mass/volume] [facility] in Blood by [facility] Automated test strip ID Date Data Source [id number] 02/17/2019 12:53:16 AM EDT [facility] Name Value Range Interpretation Description Data Sup porting Code Source(s) Document(s ) Glucose 87 MG/DL 65-110 [facility] [Mass/volume] [facility] in Blood by [facility] Automated test strip ID Date Data Source [id number] 02/16/2019 07:58:[address] [facility] RN called and made aware of MRI re sults- Pt will have surgery tomorrow.RN made pt aware. Pt continues to be NPO. IV ZO syn infusing. Pain meds PRN.Will monitor. Name Value Range Interpretation Code Description Data Gissell rce(s) Supporting Document(s ) ID Date Data Source [id number] 02/16/2019 07:01:[address] [facility] Bedside and Verbal shift change report g iven to Carolyn Denney RN (oncoming nurse)by Sana PRINCE RN (offgoing nurse). Report included the following information SBARand Kardex. Name Value Range Interpretation Code Description Data Gissell rce(s) Supporting Document(s ) ID Date Data Source [id number] 02/16/2019 05:11:[address] [facility] History: pre op. Hypertension. Gallstone sTechnique: Portable chest x-ray 02/16/2019 4:51 PMComparison: No priors. FINDINGS:N o focal infiltrate or effusion is identified. Evaluation of the cardiac silhouette is limited by projection.The visualized osseous structures appear unremarkable.IMPRESSIO N: No focal infiltrate or effusion Signing date/time: 02/16/2019 5:11 PMSigned by: DINORAH CASEY Name Value Range Interpretation Code Description Data Gissell rce(s) Supporting Document(s ) ID Date Data Source [id number] 02/16/2019 04:49:34 PM EDT [facility] Name Value Range Interpretation Description Data Sup porting Code Source(s) Document(s ) Glucose 102 MG/DL 65-110 [facility] [Mass/volume] [facility] in Blood by Hospital Automated test strip ID Date Data Source [id number] 02/16/2019 03:56:[address] [facility] MRI ABD W MRCP WO CONTHISTORY: Mildly di lated common bile duct.TECHNIQUE: An MRI of the abdomen/MRCP without contrast was pe rformed.COMPARISON: CT scan of the and pelvis dated 02/15/2019 and an ultrasound of the abdomen dated 02/07/2019.FINDINGS:The common bile duct measures up to 7 mm in diamete r which is mildly dilated. Ittapers smoothly distally. No definite filling defects ar e identified to suggestcholedocholithiasis.No intrahepatic biliary duct dilatation is identified. There is biliary sludgeidentified within the gallbladder. There are multip le filling defects compatiblewith stones. There is mild pericholecystic fluid and wall thickening.The liver, spleen, adrenal glands, pancreas and kidneys appear unre markable onthis noncontrast exam.IMPRESSION:The gallbladder is diste nded with fluid and measures 10 cm in long axis. Thereare multiple filling defects compatible with gallstones. There ispericholecystic fluid and gallbladder wall thickening. The common bile ductmeasures 7 mm in diameter which is borderline enl arged. No definite fillingdefect is identified to suggest choledocholithiasi s. Signing date/time: 02/16/2019 3:56 PMSigned by: DINORAH CASEY Name Value Range Interpretation Code Description Data Gissell rce(s) Supporting Document(s ) ID Date Data Source [id number] 02/16/2019 03:30:[address] [facility] Progress NoteDaily Progress Note: 019Subjective:Patient awake and alert. Continues to have some right upper quadr ant pain.Denies nausea, vomiting or diarrhea.Headache.Objective:VITALS:Visit VitalsBP 124/88 (BP 1 Location: Left arm, BP Patient Position: At rest)Pulse 72Temp 9 8 F (36.7 C)Resp 20Ht 5' 2" (1.575 m)Wt 86.2 kg (190 lb)SpO2 95%BMI 34.75 kg/m T emp (24hrs), Av.2 F (36.8 C), Min:98 F (36.7 C), Max:98.4 F (36.9 C)PHYSICAL EXAM:General: Alert, cooperativeHead: Normocephalic, without obvious abnormali ty, atraumatic.Eyes: Conjunctivae clear, anicteric sclerae.Lungs: Clear to ausc ultation bilaterally. No Wheezing or RhonchiChest wall: No Accessory muscle use.Heart: Regular rate and rhythm, no murmurAbdomen: Minimal tenderness, not distendedExtremities: No lower extremity edemaSkin: Texture, turgor normal. N o rashes or lesions. Not JaundicedIntake and Output:No intake or output data in the 2 4 hours ending 02/16/19 1412Data Review:Recent Days:Recent Labs 02/16/19 0445 02/14/1922WBC 6.7 6.5 9.8HGB 14.0 14.1 14.9HCT 41.7 42.5 43.6P LT 161 162 188Recent Labs 02/16/1912NA 138 141 138K 3.7 3.9 3.6CL 107 107 106CO2 25 27 28GLU 92 101 143*BUN 10 8 11CREA 0.61 0.61 0.72CA 8.6 8.4* 9.2ALB 3.2* 3.3* 3.8TBILI 0.7 0.8 0.7SGOT 20 10* 14*ALT 31 31 37No results for input(s): PH, PCO2, PO2, HCO3, FIO2 in the last 72 hours.No results found.Probl em List:Problem List as of 02/16/2019 Date Reviewed: 02/15/2019 Codes Class No hemalatha - Resolved Acute calculous cholecystitis ICD-10-CM: K80.00ICD-9-CM: 574.00 2018 - Present SBO (small bowel obstruction) (HCC) ICD-10-CM: K56.609ICD-9-CM: 560.9 01/02/2019 - Present Trigger finger of left hand (Chronic) ICD-10-CM: M65.30ICD-9-CM : 727.03 12/08/2013 - PresentMedications reviewedCurrent Facility-Administered Me dicationsMedication Dose Route Frequency HYDROmorphone (PF) (DILAUDID) injection 1 mg 1 mg IntraVENous Q4H PRN atorvastatin (LIPITOR) tablet 10 mg 10 mg Oral QHS insulin lispro (HUMALOG) injection SubCUTAneous Q6H dextrose 40% (GLUTOSE) oral gel 1 Tube 15 g Oral PRN glucagon (GLUCAGEN) injection 1 mg 1 mg IntraMUS Cular PRN dextrose (D50) infusion 12.5- 25 g 25-50 mL IntraVENous PRN acetaminophen (TYLENOL) tablet 650 mg 650 mg Oral Q4H PRN HYDROcodone-acetaminophen (NORCO) 5-325 mg per tablet 1 Tab 1 Tab Oral Q4HPRN diphenhydrAMINE (BENADRYL) capsule 25 mg 25 mg Oral Q4H PRN ondansetron (ZOFRAN) injection 4 mg 4 mg IntraVENous Q4H PRN magnesium hydroxide (MILK OF MAGNESIA) 400 mg/5 mL oral suspension 30 mL 30mL Oral DAILY PRN heparin (porcine) injection 5,000 Units 5,000 Units SubCUTAneous Q8H pip eracillin-tazobactam (ZOSYN) 3.375 g in 0.9% sodium chloride (MBP/ADV) 100mL MBP 3.3 75 g IntraVENous Q8H metoprolol tartrate (LOPRESSOR) tablet 50 mg 50 mg Oral BID bacitracin 500 unit/gram ointment Topical PRN dextrose 5% and 0.9% NaCl infusion 50 mL/hr IntraVENous CONTINUOUS sodium chloride (NS) flush 5-40 mL 5-40 mL Int raVENous Q8H sodium chloride (NS) flush 5-40 mL 5-40 mL IntraVENous PRNAssessment/Pl an:1. Cholecystis r/o choledocholithiasis - surgery consult - MRCP pending - N PO - lap caty per surgery- possibly tomorrow 2. HTN - metoprolol 3. DMII - BG q 6 - ISS - continue D5NS - Hgb A1c 6.2 4. Full codeDVT Prophylaxis:[x] Venodynes[] Lovenox[] Heparin[] No Lovenox or Heparin for risk of bleeding Carolyn Parker, PASeptember 2018 Name Value Range Interpretation Code Description Data Gissell rce(s) Supporting Document(s ) ID Date Data Source [id number] 02/16/2019 12:57:49 PM EDT [facility] Surgery Progress NoteNAME: Verito Pereira enkoDOB: 1965MRN: [id number]:Still has pain in right upper abdomenAssociated with mild nausea, no vomitingWill follow up MRCPLabs in marielena l range.Past Medical History:Diagnosis Date Diabetes (HCC) diet controlled pre-diabe tic Hypertension SBO (small bowel obstruction) (HCC) Trigger finger of le ft hand 12/08/2013Past Surgical History:Procedure Laterality Date HX OR THOPAEDIC right carpal tunnelNo Known AllergiesVITALS:Visit VitalsBP 124/88 (B P 1 Location: Left arm, BP Patient Position: At rest)Pulse 72Temp 98 F (36.7 C)Resp 20Ht 5' 2" (1.575 m)Wt 190 lb (86.2 kg)SpO2 95%BMI 34.75 kg/m PHYSICAL EXAM:General: Alert, cooperative, no distress, appears stated age.Head: Normocephalic, withou t obvious abnormality, atraumatic.Eyes: Conjunctivae clear, anicteric sclerae. Pupils are equalBack: Symmetric, No CVA tenderness.Lungs: Clear to auscultatio n bilaterally. No Wheezing or Rhonchi. No rales.Chest wall: No Accessory muscle u se.Heart: Regular rate and rhythm, no murmur, rub or gallop.Abdomen: Soft, R UQ tenderness. Not distended. No masses, No guarding orrebound tenderness.Extremitie s: Extremities normal, atraumatic, No cyanosis. No edema. No clubbingPsych: Good insight. Not depressed. Not anxious or agitated.Neurologic: EOMs intact. No fac ial asymmetry. No aphasia or slurred speech.Normal strength, Alert and orient ed X 3.Lab Data Reviewed:CBC w/Diff Recent Labs 02/16/191202/14/19 2205WBC 6.7 6.5 9.8HGB 14.0 14.1 14.9HCT 41.7 42.5 43.6MCV 95.9* 97.3* 95.4*PLT 161 16 2 188GRANS 62 -- 72LYMPH 26 -- 18EOS 3 -- 2Chemistry Recent Labs 02/16/1912GLU 92 101 143*NA 138 141 138K 3.7 3.9 3.6CL 107 107 106CO 2 25 27 28BUN 10 8 11CREA 0.61 0.61 0.72 Recent Labs 02/16/1912 0 CA 8.6 8.4* 9.2ALB 3.2* 3.3* 3.8TBILI 0.7 0.8 0.7AP 95 88 96SGOT 20 1 0* 14*ALT 31 31 37LPSE -- -- 74Coagulation No results for input(s): P TP, INR, APTT, INREXT in the last 72hours.IMAGING RESULTS:No results found .Assessment:53 y/o female with pain in RUQ and epigastric region. Noted to have dis tendedGB, gallstones and dilated CBDPlan:Continue with current conservati ve managementFollow up MRCPFor lap Cholecystectomy tomorrow if MRCP is nega tive for CBD stoneOOB to walkingRest of the management as per medicineThank you for allowing me to participate in this patients care and please callme on [phone] w [facility] questions and concernsSigned By: Mark Alegre MD 02/16/2019 12:53 PM Name Value Range Interpretation Code Description Data Gissell rce(s) Supporting Document(s ) ID Date Data Source [id number] 02/16/2019 12:55:04 PM EDT [facility] Name Value Range Interpretation Description Data Sup porting Code Source(s) Document(s ) Glucose 94 MG/DL 65-110 [facility] - Good [Mass/volume] [facility] in Blood by [facility] Automated test strip ID Date Data Source [id number] 02/16/2019 07:55:[address] [facility] Bedside and Verbal shift change report didier rosales to Sana ROBERT (oncoming nurse) quyen (offgoing nurse). Report given with SBA R, Kardex, MAR and Med Rec Status. Name Value Range Interpretation Code Description Data Gissell rce(s) Supporting Document(s ) ID Date Data Source [id number] 02/16/2019 07:54:[address] [facility] Pt AAOx4 ambulating c/o pain on lt upper abd no n/v notedNPO For now Name Value Range Interpretation Code Description Data Gissell rce(s) Supporting Document(s ) ID Date Data Source [id number] 02/16/2019 06:09:25 AM EDT [facility] Name Value Range Interpretation Description Data Sup porting Code Source(s) Document(s ) Glucose 105 MG/DL 65-110 [facility] - Good [Mass/volume] [facility] in Blood by [facility] Automated test strip ID Date Data Source [id number] 02/16/2019 10:14:[address] [facility] Name Value Range Interpretation Description Data Sup porting Code Source(s) Document(s ) Bilirubin.total 0.7 0.2-1.0 [facility] - [Mass/volume] in mg/dL Good Serum or Plasma Bilirubin.direct 0.1 0-0.2 [facility] - [Mass/volume] in mg/dL Good Serum or Plasma Alanine 31 U/L 13-61 [facility] - aminotransferase Good [Enzymatic [facility] activity/volume] in Hospital Serum or Plasma Aspartate 20 U/L 15-37 [facility] - aminotransferase Good [Enzymatic [facility] activity/volume] in Hospital Serum or Plasma by With P-5'-P Alkaline 95 U/L 45-117 [facility] - phosphatase Good [Enzymatic [facility] activity/volume] in Hospital Serum or Plasma Protein 6.4 6.4-8.2 [facility] - [Mass/volume] in g/dL Good Serum or Plasma Albumin 3.2 3.5-4.7 Below low normal [facility] - [Mass/volume] in g/dL Good Serum or Plasma by [facility] Bromocresol [facility] ([facility]) dye binding method Globulin 3.2 1.7-4.7 [facility] - [Mass/volume] in g/dL Good Serum by [facility] Albumin/Globulin 1.0 0.7-2.8 [facility] - [Mass Ratio] in Good Serum or Plasma ID Date Data Source [id number] 02/16/2019 06:45:01 AM EDT [facility] - [facility] Name Value Range Interpretation Description Data Sup porting Code Source(s) Document(s ) Leukocytes 6.7 K/uL 4.8-10.6 [facility] - [#/volume] in Good Blood by [facility] Automated count [facility] Erythrocytes 4.35 4.20-5.4 [facility] - [#/volume] in M/uL 0 Good Blood by [facility] Automated count [facility] Hemoglobin 14.0 12.0-16. [facility] - [Mass/volume] in g/dL 0 Good Blood Hematocrit 41.7 % 36.0-47. [facility] - [Volume 0 Good Fraction] of [facility] Blood by Hospital Automated count Erythrocyte mean 95.9 FL 81.0-94. Above high normal [facility] - corpuscular 0 Good volume [Entitic [facility] volume] by Hospital Automated count Erythrocyte mean 32.2 PG 27.0-35. [facility] - corpuscular 0 Good hemoglobin [facility] [Entitic mass] Hospital by Automated count Erythrocyte mean 33.6 30.7-37. [facility] - corpuscular g/dL 3 Good hemoglobin [facility] [Mass/volume] by Automated count Erythrocyte 12.7 % 11.5-14. [facility] - distribution 0 Good width [Ratio] by [facility] Automated count [facility] Platelets 161 K/uL 130-400 [facility] - [#/volume] in Good Blood by [facility] Automated count [facility] Platelet mean 11.0 FL 9.2-11.8 [facility] - volume [Entitic Good volume] in Blood [facility] by Automated Hospital count Segmented 62 % 48.0-72. [facility] - neutrophils/100 0 Good leukocytes in [facility] Lymphocytes/100 26 % 18.0-40. [facility] - leukocytes in 0 [facility] Monocytes/100 9 % 2.0-12.0 [facility] - leukocytes in [facility] Eosinophils/100 3 % 0.0-7.0 [facility] - leukocytes in [facility] Basophils/100 0 % 0.0-3.0 [facility] - leukocytes in [facility] Segmented 4.1 K/UL 1.5-6.6 [facility] - neutrophils Good [#/volume] in [facility] Lymphocytes 1.8 K/UL 1.5-3.5 [facility] - [#/volume] in [facility] Monocytes 0.6 K/UL 0.0-1.0 [facility] - [#/volume] in [facility] Eosinophils 0.2 K/UL 0.0-0.7 [facility] - [#/volume] in [facility] Basophils 0.0 K/UL 0.0-0.1 [facility] - [#/volume] in [facility] Differential [facility] - cell count Good [facility] Immature 0 % 0.0-2.0 [facility] - granulocytes/100 Good leukocytes in [facility] by Hospital Automated count ID Date Data Source [id number] 02/16/2019 06:39:53 AM EDT [facility] - [facility] Name Value Range Interpretation Description Data Sup porting Code Source(s) Document(s ) Sodium 138 136-145 [facility] - Good [Moles/volume] mmol/L [facility] in Serum or Hospital Plasma Potassium 3.7 3.5-5.1 [facility] - Good [Moles/volume] mmol/L [facility] in Serum or Hospital Plasma Chloride 107 98-107 [facility] - Good [Moles/volume] mmol/L [facility] in Serum or Hospital Plasma Carbon 25 21-32 [facility] - Good dioxide, total mmol/L [facility] [Moles/volume] Hospital in Serum or Plasma Anion gap in 10 10-20 [facility] - Good Serum or mmol/L [facility] Glucose 92 mg/dL 74-106 [facility] - Good [Mass/volume] [facility] in Serum or Hospital Plasma Urea nitrogen 10 mg/dL 7-18 [facility] - Good [Mass/volume] [facility] in Serum or Hospital Plasma Creatinine 0.61 0.40-1.1 [facility] - Good [Mass/volume] mg/dL 6 [facility] in Serum or Hospital Plasma Glomerular >60 [facility] - Good filtration [facility] rate/1.73 sq M Hospital predicted among blacks [Volume Rate/Area] in Serum or Plasma by Creatinine-bas ed formula (MDRD) Glomerular >60 [facility] - Good filtration [facility] rate/1.73 sq M Hospital predicted among non-blacks [Volume Rate/Area] in Serum or Plasma by Creatinine-bas ed formula (MDRD) Calcium 8.6 8.5-10.1 [facility] - Good [Mass/volume] mg/dL [facility] in Serum or Hospital Plasma ID Date Data Source [id number] 02/16/2019 12:17:13 AM EDT [facility] Name Value Range Interpretation Description Data Sup porting Code Source(s) Document(s ) Glucose 106 MG/DL 65-110 [facility] - Good [Mass/volume] [facility] in Blood by Hospital Automated test strip ID Date Data Source [id number] 02/15/2019 07:33:[address] [facility] Pt AxOX4- Pt ambulating to the BR. IV ABx being given. Pt NPO- no N/V butmedicated for pain x [address] Janelle bradford ordered MRI- Safety formcompleted around 1430; MRI called and pt is scheduled for tomorrow morning forher MRI/MRCP. Pt made aware. RN dressed the pt's abrasions s/ p fall at home.Pt stable. Name Value Range Interpretation Code Description Data Gissell rce(s) Supporting Document(s ) ID Date Data Source [id number] 02/15/2019 07:30:[address] [facility] Bedside and Verbal shift change report didier rosales to Kisha Schulz RN (oncoming nurse)by Sana BELLAMY RN (offgoing nurse). Report included the following information Clau Marin. Name Value Range Interpretation Code Description Data Gissell rce(s) Supporting Document(s ) ID Date Data Source [id number] 02/15/2019 06:54:[address] [facility] Problem: Falls - Risk ofGoal: *Absence o f FallsDescriptionDocument Enoch Fall Risk and appropriate interventions in the ambreen wsheet.Outcome: Progressing Towards GoalNote:Fall Risk Interventions:Medicat ion Interventions: Patient to call before getting OOBProblem: PainGoal: *Control o f PainOutcome: Progressing Towards GoalProblem: HypertensionGoal: *Blood pr essure within specified parametersOutcome: Progressing Towards GoalGoal: *Fluid vol ume balanceOutcome: Progressing Towards GoalGoal: *Labs within defined limitsOut come: Progressing Towards Goal Name Value Range Interpretation Code Description Data [facility] rce(s) Supporting Document(s ) ID Date Data Source [id number] 02/15/2019 04:30:58 PM EDT [facility] Name Value Range Interpretation Description Data Sup porting Code Source(s) Document(s ) Glucose 118 MG/DL 65-110 Above high normal [facility] [Mass/volume] [facility] in Blood by Hospital Automated test strip ID Date Data Source [id number] 02/15/2019 03:36:[address] [facility] Patient admitted this morning. Please se e H+P for full history.1. Cholecystis r/o choledocholithiasis - surgery consult - MRCP pending - NPO - likely lap caty 2. HTN - metoprolol3. DMII - BG 6 6 - ISS - Hgb A1c 6.2 4. Full code Name Value Range Interpretation Code Description Data Gissell rce(s) Supporting Document(s ) ID Date Data Source [id number] 02/15/2019 12:46:[address] [facility] Clarification: change metoprolol tartrat e to 50mg po bid starting 02/16/19 in themornining. Name Value Range Interpretation Code Description Data Gissell rce(s) Supporting Document(s ) ID Date Data Source [id number] 02/15/2019 03:43:20 PM EDT [facility] Name Value Range Interpretation Description Data Sup porting Code Source(s) Document(s ) Sodium 141 136-145 [facility] - [Moles/volume] in mmol/L [facility] Serum or Plasma Potassium 3.9 3.5-5.1 [facility] - [Moles/volume] in mmol/L [facility] Serum or Plasma Chloride 107 98-107 [facility] - [Moles/volume] in mmol/L [facility] Serum or Plasma Carbon dioxide, 27 21-32 [facility] - total mmol/L Good [Moles/volume] in [facility] Serum or Plasma [facility] Anion gap in Serum 12 10-20 [facility] - or Plasma mmol/L [facility] Glucose 101 74-106 [facility] - [Mass/volume] in mg/dL [facility] Serum or [facility] Urea nitrogen 8 mg/dL 7-18 [facility] - [Mass/volume] in [facility] Serum or Plasma Creatinine 0.61 0.40-1. [facility] - [Mass/volume] in mg/dL 16 [facility] Serum or Plasma Glomerular >60 [facility] - filtration Good rate/1.73 sq M [facility] predicted among Hospital blacks [Volume Rate/Area] in Serum or Plasma by Creatinine-based formula (MDRD) Glomerular >60 [facility] - filtration Good rate/1.73 sq M [facility] predicted among Hospital non-blacks [Volume Rate/Area] in Serum or Plasma by Creatinine-based formula (MDRD) Calcium 8.4 8.5-10. Below low normal [facility] - [Mass/volume] in mg/dL 1 [facility] Serum or Plasma Bilirubin.total 0.8 0.2-1.0 [facility] - [Mass/volume] in mg/dL [facility] Serum or [facility] Alanine 31 U/L 13-61 [facility] - aminotransferase Good [Enzymatic [facility] activity/volume] in Hospital Serum or Plasma Aspartate 10 U/L 15-37 Below low normal [facility] - aminotransferase Good [Enzymatic [facility] activity/volume] in Hospital Serum or Plasma by With P-5'-P Alkaline 88 U/L 45-117 [facility] - phosphatase Good [Enzymatic [facility] activity/volume] in Hospital Serum or Plasma Protein 5.9 6.4-8.2 Below low normal [facility] - [Mass/volume] in g/dL Good Serum or Plasma Albumin 3.3 3.5-4.7 Below low normal [facility] - [Mass/volume] in g/dL Good Serum or Plasma by [facility] (BCP) dye binding method Globulin 2.6 1.7-4.7 [facility] - [Mass/volume] in g/dL Good Serum by [facility] Albumin/Globulin 1.3 0.7-2.8 [facility] - [Mass Ratio] in Good Serum or Plasma ID Date Data Source [id number] 02/15/2019 03:30:20 PM EDT [facility] Name Value Range Interpretation Description Data Sup porting Code Source(s) Document(s ) Leukocytes 6.5 K/uL 4.8-10.6 [facility] - [#/volume] in Good Blood by [facility] Automated count [facility] Erythrocytes 4.37 4.20-5.4 [facility] - [#/volume] in M/uL 0 Good Blood by [facility] Automated count [facility] Hemoglobin 14.1 12.0-16. [facility] - [Mass/volume] in g/dL 0 Good Blood Hematocrit 42.5 % 36.0-47. [facility] - [Volume 0 Good Fraction] of [facility] Blood by [facility] Automated count Erythrocyte mean 97.3 FL 81.0-94. Above high normal [facility] - corpuscular 0 Good volume [Entitic [facility] volume] by Hospital Automated count Erythrocyte mean 32.3 PG 27.0-35. [facility] - corpuscular 0 Good hemoglobin [facility] [Entitic mass] [facility] by Automated count Erythrocyte mean 33.2 30.7-37. [facility] - corpuscular g/dL 3 Good hemoglobin [facility] [Mass/volume] by Automated count Erythrocyte 13.0 % 11.5-14. [facility] - distribution 0 Good width [Ratio] by [facility] Automated count [facility] Platelets 162 K/uL 130-400 [facility] - [#/volume] in Good Blood by [facility] Automated count [facility] Platelet mean 11.2 FL 9.2-11.8 [facility] - volume [Entitic Good volume] in Blood [facility] by Automated Hospital count ID Date Data Source [id number] 02/15/2019 01:29:28 PM EDT [facility] Name Value Range Interpretation Description Data Sup porting Code Source(s) Document(s ) Hemoglobin 6.2 % 4.2-6.3 [facility] - Good A1c/Hemoglobin [facility] .total in Hospital Blood ID Date Data Source [id number] 02/15/2019 11:54:20 AM EDT [facility] Name Value Range Interpretation Description Data Sup porting Code Source(s) Document(s ) Glucose 122 MG/DL 65-110 Above high normal [facility] - Good [Mass/volume] [facility] in Blood by Hospital Automated test strip ID Date Data Source [id number] 02/15/2019 11:30:54 AM EDT [facility] Hospital CONSULT NOTENAME: Verito VelascoDOB: 1965Sex: femaleMRN: [id number]: 02/14/2019ATTENDING: Antonio Enrique MD PCP: Samantha Carter MDDate/Time: 02/15/2019 11:22 AMSubjective:REASON FOR CONSULT:Verito is a 53 y.o. female who I was asked to see for pain in upper abdomen.P ain is sharp, sudden, and moderate to severe in intensity. Associated withnausea and vomiting. She was recently admitted with possible small bowel ileus.She denies fe wilfredo or chills.Her past surgical history includes Laparoscopic ovarian cystectomy .Her past medical history reviewed.In ER she underwent labs, CT scan and US. Which sh owed presence of gall stones,dilated GB and No GB wall thickness or pericholecystic fluid. CBD was 7 mm.Past Medical History:Diagnosis Date Diabetes (HCC) d iet controlled pre-diabetic Hypertension SBO (small bowel obstruction) (HCC) Tri gger finger of left hand 12/08/2013Past Surgical History:Procedure Laterality Da te HX ORTHOPAEDIC right carpal tunnelFamily HistoryProblem Relation Age of Onset Di abetes Mother Heart Disease MotherSocial HistorySocioeconomic History Marital st atus: Spouse name: Not on file Number of children: Not on file Years o f education: Not on file Highest education level: Not on fileTobacco Use Smoking s tatus: Current Every Day Smoker Packs/day: 0.50 Years: 20.00 Pack years: 10.00 S mokeless tobacco: Never UsedSubstance and Sexual Activity Alcohol use: Yes Comme nt: socially. Drug use: No Sexual activity: Not Currently Partners: MalePrior to Ad mission medicationsMedication Sig Start Date End Date Taking? Authorizing Providercan agliflozin (INVOKANA PO) Take by mouth. Yes Other, Phys, MDatorvastatin (LIPITOR ) 10 mg tablet Take 10 mg by mouth daily. Provider,Historicalmetoprolol (LOPRESSOR ) 50 mg tablet Take 100 mg by mouth daily. Indications:HYPERTENSION Provider, Hi storicalOTHER Take by mouth daily. Vitamin D, Calcium, fiber, Vitamin B12 (all OTC) Provider, HistoricalNo Known AllergiesCurrent Facility-Administered MedicationsMedicat ion Dose Route Frequency atorvastatin (LIPITOR) tablet 10 mg 10 mg Oral QHS metoprolol tartrate (LOPRESSOR) tablet 100 mg 100 mg Oral DAILY insulin lispro (ZACHERY LOG) injection SubCUTAneous Q6H dextrose 40% (GLUTOSE) oral gel 1 Tube 15 g Oral PRN glucagon (GLUCAGEN) injection 1 mg 1 mg IntraMUSCular PRN dextrose (D50) inf usion 12.5-25 g 25-50 mL IntraVENous PRN acetaminophen (TYLENOL) tablet 650 mg 6 50 mg Oral Q4H PRN HYDROcodone-acetaminophen (NORCO) 5-325 mg per tablet 1 Tab 1 Tab Oral Q4HPRN HYDROmorphone (PF) (DILAUDID) injection 1 mg 1 mg IntraVENous Q4H PRN diphenhydrAMINE (BENADRYL) capsule 25 mg 25 mg Oral Q4H PRN ondansetron (ZOFRAN) injection 4 mg 4 mg IntraVENous Q4H PRN magnesium hydroxide (MILK OF MAGNESIA) 4 00 mg/5 mL oral suspension 30 mL 30mL Oral DAILY PRN heparin (porcine) injection 5 ,000 Units 5,000 Units SubCUTAneous Q8H piperacillin-tazobactam (ZOSYN) 3.375 g in 0.9% sodium chloride (MBP/ADV) 100mL MBP 3.375 g IntraVENous Q8H metoprolol tart rate (LOPRESSOR) tablet 100 mg 100 mg Oral ONCE sodium chloride (NS) flush 5-40 mL 5-40 mL IntraVENous Q8H sodium chloride (NS) flush 5-40 mL 5-40 mL IntraVENous PRNREVIEW OF SYSTEMS:Constitutional: negative fever, negative chills, negative weight lossEyes: negative diplopia or visual changes, negative eye painENT: negativ e coryza, negative sore throatRespiratory: negative cough, hemoptysis, dyspneaCards : negative for chest pain, palpitations, lower extremity edemaGI: negative for nausea, vomiting, diarrhea, and abdominal painGenitourinary: negative for frequenc y, dysuria and hematuriaIntegument: negative for rash and pruritusHematologic: negat nelson for easy bruising and gum/nose bleedingMusculoskel: negative for myalgi as, arthralgias, back pain and muscle weaknessNeurological: negative for head aches, dizziness, vertigo, memory problems andgait problemsBehavl/Psych: negative f or feelings of anxiety, depressionObjective:VITALS:Visit VitalsB P (!) 142/92 (BP 1 Location: Left arm, BP Patient Position: Sitting)Pulse 84Temp 9 8.4 F (36.9 C)Resp 20Ht 5' 2" (1.575 m)Wt 190 lb (86.2 kg)SpO2 97%BMI 34.75 kg/m T emp (24hrs), Av.5 F (36.9 C), Min:98.3 F (36.8 C), Max:98.8 F (37.1 C)PHYSICA L EXAM:General: Alert, cooperative, no distress, appears stated age.Eyes: Con junctivae clear, anicteric sclerae. Pupils are equalLungs: Clear to auscultation bilaterally. No Wheezing or Rhonchi. No rales.Chest wall: No Accessory muscle u se.Heart: Regular rate and rhythm, no murmur, rub or gallop.Abdomen: Soft, t juancho in right upper abdomen. No guarding or reboundtenderness.Rectal DeferredPsych: Good insight. Not depressed. Not anxious or agitated.Neurologic: EOMs intact. No facial asymmetry. No aphasia or slurred speech.Normal strength, Alert and orien hemalatha X 3.LAB DATA REVIEWED:Lab ResultsComponent Value Date/Time Glucose , bedside 119 (H) 02/15/2019 08:24 AM Glucose, bedside 154 (H) 01/06/2019 04:1 1 PM Glucose, bedside 109 01/06/2019 12:09 PM Glucose, bedside 109 01/06/2019 07:05 AM Glucose, bedside 95 01/05/2019 08:24 PMRecent Labs 205NA 138K 3.6CL 106CO2 28BUN 11CREA 0.72GLU 143*CA 9.2ALB 3.8WBC 9.8HGB 14.9HCT 43.6PLT 188IMAGING RESULTS:Ct Abd Pelv W ContResult Date: 02/15/2019Referring Physician: MACIEJ BUNCH Patient Name: VERITO VELASCO THIS IS AFINAL REPORT FROM [facility] DATE OF SERVICE: 2019-02-15 00:44:25 IMAGES:471 EXAM: CT ABD PELVIS W TECHNIQUE: Helical axial imaging from above the domesof diaphragms through the pubic symphysis f ollowing administration of contrastorally and 95 cc of Isovue-300 intravenously. Sagit roxana and coronalreconstructions were obtained. HISTORY: Abdominal pain. History of SBO. COMPARISON: CT abdomen/pelvis of 01/02/2019. FINDINGS: Volume dependentatelectatic ch anges are again seen at the imaged lung bases. The imaged heartremains normal in size and no pericardial effusion is seen. The liver cm in length and re brooks mildly hypodense. The spleen, pancreas, and adrenalsremain unremarkable. The gal lbladder is more distended on the current exam andthere are again multiple calculi seen. There is now pericholecystic fluid seenwith minimal pericholecystic hazines s and these findings were not present on theprior exam. Normal cortical enhanceme nt is again seen in both kidneys. Bilateralrenal cysts, largest in the lef t kidney in the upper pole and the largest in theright kidney in the peripelvic midpol e remains stable. No renal or ureteralcalculi are seen and no hydronephrosis is noted. The urinary bladder isunremarkable. No bowel obstruction is seen on the current exam. The appendixremains normal in caliber without signs of appendicitis. Diverticu losis is againnoted of the sigmoid colon without evidence of diverticulitis. The abdominalaorta remains normal in caliber. Mild atherosclerotic calcifications are againseen in the aortoiliac system. No definite lymphadenopathy is seen. No asc itesis noted. The previously seen perihepatic and pelvic ascites has resolved. Theuter us remains anteverted. No abnormal adnexal masses are seen. Calcifiedinjection gran ulomas again seen in the buttocks. Degenerative changes again seenin the im aged spine with dextroscoliosis again noted of the lumbar spine. Noacute osseous clara nges are noted. A transitional vertebra is noted at thelumbosacral junction and thi s appears to represent a lumbarized first sacralsegment.IMPRESSION: 1. Cholelithia sis now with findings indicative of cholecystitis.Correlate with ultrasound. 2. No evidence of small bowel obstruction andresolution of previously noted ascite s. 3. Sigmoid diverticulosis withoutevidence of diverticulitis. Stable findings as no hemalatha above. One or more of thefollowing dose reduction techniques were used: automate d exposure control,adjustment of the mA and/or kV according to patient size, use of iterativereconstructive technique. THIS DOCUMENT HAS BEEN ELECTRONICALLY SIGNEDM margareth Dubose MD 02/15/2019 01:33 KEVIN Driscoll Please call Imaging On [phone] RAMIREZ ([phone]) with questions. This report was electronically signedby: Karissa uDbose MD 02/15/2019 01:34 AMUs Abd LtdResult Date: 02/15/2019US ABD LTD Clin ical Data: Findings: Normal-sized liver demonstrates diffuseincreased echogenici ty consistent with fatty infiltration. There are no focalhepatic lesions. There are multiple calculi noted within the fundus of thegallbladder without evidence of wall thickening or pericholecystic fluid.Negative for sonographic Ingram's sign. There is no intra or extra hepatic bileduct dilation. The common bile duct measures 7 mm. Vasquez creas was not examined.There is no free fluid within the Orellana's pouch. The right kidney fdolimw68.9 cm. The right kidney shows no focal mass, hydronephrosis, cyst or c alculus.IMPRESSION: Cholelithiasis without sonographic evidence of cholecystitis. Noevidence of common bile duct dilatation. Hepatic steatosis.Assessment and Plan:53 y/o female with pain in RUQ and epigastric region. Noted to have distendedGB, galls tones and dilated CBD.He is afebrile, normal WBC and normal LFTs.Will obtain MRCP to rule out CBD stone.Will schedule her for lap cholecystectomy if MRCP is negative.Keep her NPO for NowOOB to walkingThank you for allowing me to participate in this [facility] care and please callme on [phone] with questions and concerns Mark Alegre [facility] 201811:[facility] A M Name Value Range Interpretation Code Description Data Gissell rce(s) Supporting Document(s ) ID Date Data Source [id number] 02/15/2019 08:48:[address] [facility] US ABD LTDClinical Data:Findings: Normal -sized liver demonstrates diffuse increased echogenicityconsistent with fatty infilt ration. There are no focal hepatic lesions. Thereare multiple calculi noted within t he fundus of the gallbladder without evidenceof wall thickening or pericholec ystic fluid. Negative for sonographic Ingram'ssign. There is no intra or extra hepatic bile duct dilation. The common bileduct measures 7 mm. Pancreas was no t examined. There is no free fluid withinthe Orellana's pouch. The right kidney measu re 10.9 cm. The right kidney shows no focal mass,hydronephrosis, cyst or calculus.IM PRESSION:Cholelithiasis without sonographic evidence of cholecystitis. No evidence ofcommon bile duct dilatation. Hepatic steatosis. Signing date/time: 02/15/2019 8:48 AMSigned by: BRUCE SORTO Name Value Range Interpretation Code Description Data Gissell rce(s) Supporting Document(s ) ID Date Data Source [id number] 02/15/2019 08:37:11 AM [facility]T [facility] Name Value Range Interpretation Description Data Sup porting Code Source(s) Document(s ) Glucose 119 MG/DL 65-110 Above high normal [facility] [Mass/volume] [facility] in Blood by Hospital Automated test strip ID Date Data Source [id number] 02/15/2019 08:03:[address] [facility] RN got report from Thelma in the ER- pt came up to room 408A. Will assessand evaluate pt.0800- Pt came up in severe pain- 10/10. BP elevated. RN will release ordersand check to see what pain meds sh e can have. WIll address the pt's pain andMonitor. Name Value Range Interpretation Code Description Data Gissell rce(s) Supporting Document(s ) ID Date Data Source [id number] 02/15/2019 07:51:[address] [facility] TRANSFER - OUT REPORT:Verbal report give n to Sana ROBERT(name) on Verito Velasco being transferred to[address] [place] [address](unit) for ro utine progression of careReport consisted of patient's Situation, Background, Assessm ent andRecommendations(SBAR).Information from the following report(s) SBAR, Kardex, ED Summary, MAR, RecentResults and Med Rec Status was reviewed with the receiving jorge farah.Lines:Peripheral IV 02/14/19 Right Hand (Active)Site Assessment Clean, dry, & in tact 02/15/2019 7:02 AMPhlebitis Assessment 0 02/15/2019 7:02 AMInfiltration Assessmen t 0 02/15/2019 7:02 AMDressing Status Clean, dry, & intact 02/15/2019 7:02 AMDressing Type Transparent 02/15/2019 7:02 AMOpportunity for questions and clarific ation was provided. Name Value Range Interpretation Code Description Data Gissell rce(s) Supporting Document(s ) ID Date Data Source [id number] 02/15/2019 07:43:[address] [facility] [id number] [facility] [facility] [address] [place] [facility] [address] [place] [address] [phone]/ Verito Velasco (Female) [id number] E SI 3 ED Dispo:ADMIT Chief Complaint: Abdominal Pain, Vomiting Diagnosis: Acute cholecystitis [] Current Providers: Attending: Thomas Lim; Albin Swift; Donell Nixon Consulting Provider: Yogi Alegre; Albin Swift Primary Nu rse: Tessa Beauchamp; MICHELLE HobbsN: [id number] [employer] [id number] - [facility] MrnMRN: [id number] [employer] [id number] - [facility] Age SexDOB 1965 AGE 53 SEX Female Pr imary Care Provider: Samantha Carter MD Yrisuepuj: (No Known Allergies)Date Reviewed: 2018Reviewed by: Geo Torres RN - Review CompleteED Provider Notes: All notesHNO ID: [id number] : Maciej Lim MDService: -Author Type: PhysicianFiled: 02/15/19 [id number] Text:The history is provided by the patient.9:10 PM: Verito Velasco is a 53 y.o. female with h/o small bowelobstruction, hypertension and diabetes who returns to the ED via c/owaxing and waning abdominal pain and episodes of vomiting. The patientsta sandra last month she had an episode of a small bowel obstruction withsimilar symptoms and was admitted to the hospital. She claims she hadeaten salad with meat and within 15 minutes she had sharp pain along heruppe r abdomen and felt nausea. The patient complains that her stomach isswollen and the adominal pain worse wh en touched and she cannot lie down.No other constitutional symptoms at this time. The patient also statesthat s he fell and scraped her knee, elbow and fingers. No othercomplaints at this time.PCP: Dr. Alaniz Medical H istory:Diagnosis Date Diabetes ([facility]) diet controlled pre-diabetic Hypertension SBO (small bowel obstructi on) ([facility]) Trigger finger of left hand 12/08/2013Past Surgical History:Procedure Laterality Date HX OR THOPAEDIC right carpal tunnelFamily History:Problem Relation Age of Onset Diabetes Mother Heart Disease Mo therSocial HistorySocioeconomic History Marital status: Spouse name: Not on file Number of children: N ot on file Years of education: Not on file Highest education level: Not on fileOccupational History Not on fileSocial Needs Financial resource strain: Not on file Food insecurity: Worry: Not on file Inabili ty: Not on file Transportation needs: Medical: Not on file Non-medical: Not on fileTobacco Use [facility] [address] status: Current Every Day Smoker Packs/day: 0.50 Years: 20.00 Pack years: 10.00 Smokeless tobacco: Ne wilfredo UsedSubstance and Sexual Activity Alcohol use: Yes Comment: socially. Drug use: No Sexual activity : Not Currently Partners: MaleLifestyle Physical activity: Days per week: Not on file Minutes per session: Not on file Stress: Not on fileRelationships Social connections: Talks on phone: Not on file Gets togeth er: Not on file Attends nondenominational service: Not on file Active member of club or organization: Not on file At tends meetings of clubs or organizations: Not on file Relationship status: Not on file Intimate partner vi olence: Fear of current or ex partner: Not on file Emotionally abused: Not on file Physically abused: Not on f ile Forced sexual activity: Not on fileOther Topics Concern Not on fileSocial History Narrative Not on hollis eALLERGIES: Patient has no known allergies.Review of SystemsHENT: Negative for ear pain and sore throat.Ey es: Negative for pain and discharge.Respiratory: Negative for shortness of breath and wheezing.Cardiovascular: N egative for chest pain and palpitations.Gastrointestinal: Positive for abdominal pain, nausea and vomiting.Nega tive for abdominal distention.Musculoskeletal: Negative for joint swelling.Skin: Negative for color change and rash.Neurological: Negative for dizziness and speech difficulty.Psychiatric/Behavioral: Negat nelson for agitation and behavioral problems.Vitals: 02/14/19 2230 02/15/19 0245 02/15/19 0300 02/15/19 0436BP: (!) 152/94 121/80 116/80 (!) 143/92Pulse: 83 92Resp: 18 18Temp: 98.4 F (36.9 C)SpO2: 95%Weight:Height: 2: 45 AM Pulse Oximetry reading is 95% on room air, which indicatesnormal oxygenation per Maciej Lim MD.Physic al ExamConstitutional: She is oriented to person, place, and time. She appearswell-developed and well-nourished . She appears distressed.The patient is in severe pain and distressHENT:Head: Normocephalic and atr aumatic.Eyes: Pupils are equal, round, and reactive to light. EOM are normal.Neck: Normal range of motion. Nec k supple.Cardiovascular: Normal rate, regular rhythm and normal heart sounds. Examreveals no gallop and no fri ction rub.No murmur heard.Pulmonary/Chest: Effort normal and breath sounds normal. No respiratorydistress. S he has no wheezes. She has no rales.Abdominal: Soft. Bowel sounds are normal. She exhibits no distension.There is tenderness. There is guarding. There is no rebound.The patient has severe upper abdominal tenderness.Muscul oskeletal: Normal range of motion. She exhibits no edema.The patient has rull range of motionNeurological: She is alert and oriented to person, place, and time.Grossly nonfocalSkin: Skin is warm and dry. Abrasion noted. No rash noted.The patient has an abrasion to the right elbow, right knee and fingers 3,4 and 5.Psychiatric: She h as a normal mood and affect. Her behavior is normal.Nursing note and vitals reviewed.MDMNumber of Diagnoses o r Management OptionsAcute cholecystitis:Amount and/or Complexity of Data ReviewedClinical lab tests: ordered and reviewedTests in the radiology section of CPT : ordered and reviewedDecide to obtain previous medica l records or to obtain history fromsomeone other than the patient: yesReview and summarize past medical rec ords: yesDiscuss the patient with other providers: yesIndependent visualization of images, tracings, or sp ecimens: yesProcedCarina Sinclair Stephen, MD, reviewed the patient's past history, allergies andhome medications a s documented in the nursing chart.Labs:Recent Results (from the past 12 hour(s))CBC WITH AUTOMATED DIFF Collecti on Time: 02/14/19 10:05 PMResult Value Ref Range WBC 9.8 4.8 - 10.6 K/uL RBC 4.57 4.20 - 5.40 M/uL HGB 14.9 12.0 - 16.0 g/dL HCT 43.6 36.0 - 47.0 % MCV 95.4 (H) 81.0 - 94.0 FL MCH 32.6 27.0 - 35.0 PG MCHC 34.2 30.7 - 37.3 g/d L RDW 12.8 11.5 - 14.0 % PLATELET 188 130 - 400 K/uL MPV 10.9 9.2 - 11.8 FL NEUTROPHILS 72 48.0 - 72.0 % LYMPHOCY SANDRA 18 18.0 - 40.0 % MONOCYTES 8 2.0 - 12.0 % EOSINOPHILS 2 0.0 - 7.0 % BASOPHILS 0 0.0 - 3.0 % ABS. NEUTROPHILS 7.0 (H) 1.5 - 6.6 K/UL ABS. LYMPHOCYTES 1.8 1.5 - 3.5 K/UL ABS. MONOCYTES 0.8 0.0 - 1.0 K/UL ABS. EOSINO PHILS 0.2 0.0 - 0.7 K/UL ABS. BASOPHILS 0.0 0.0 - 0.1 K/UL DF AUTOMATED IMMATURE GRANULOCYTES 0 0.0 - 2.0 %METAB OLIC PANEL, COMPREHENSIVE Collection Time: 02/14/19 10:05 PMResult Value Ref Range Sodium 138 136 - 145 mmol/L Po tassium 3.6 3.5 - 5.1 mmol/L Chloride 106 98 - 107 mmol/L CO2 28 21 - 32 mmol/L Anion gap 8 (L) 10 - 20 mmol/L Gl ucose 143 (H) 74 - 106 mg/dL BUN 11 7 - 18 mg/dL Creatinine 0.72 0.40 - 1.16 mg/dL GFR est AA >60 >60 ml/min/1.7 3m2 GFR est non-AA >60 >60 ml/min/1.73m2 Calcium 9.2 8.5 - 10.1 mg/dL Bilirubin, total 0.7 0.2 - 1.0 mg/dL ALT (SGPT) 37 13 - 61 U/L AST (SGOT) 14 (L) 15 - 37 U/L Alk. phosphatase 96 45 - 117 U/L Protein, total 7.1 6.4 - 8. 2 g/dL Albumin 3.8 3.5 - 4.7 g/dL Globulin 3.3 1.7 - 4.7 g/dL A-G Ratio 1.1 0.7 - 2.8LIPASE Collection Time: 10:05 PMResult Value Ref Range Lipase 74 73 - 393 U/LURINALYSIS W/ RFLX MICROSCOPIC Collection Time: 10:05 PMResult Value Ref Range Color YELLOW YEL Appearance CLOUDY (A) CLEAR Specific gravity 1.021 1.003 - 1.0 30 pH (UA) 6.0 4.6 - 8.0 Protein NEGATIVE NEG mg/dL Glucose NEGATIVE NEG mg/dL Ketone 5 (A) NEG mg/dL Bilirub in NEGATIVE NEG Blood NEGATIVE NEG Urobilinogen 0.2 0.2 - 1.0 EU/dL Nitrites NEGATIVE NEG Leukocyte Esteras e NEGATIVE NEG WBC 0-3 0 - 5 /hpf RBC 0-3 0 - 3 /hpf Epithelial cells 0-3 0 - 10 /hpf Bacteria NONE NONE /hpf Casts 0-3 (A) NONE /lpf Crystals, urine NONE NONE /LPFEKG, 12 LEAD, SUBSEQUENT Collection Time: 02/14/19 10: 31 PMResult Value Ref Range Ventricular Rate 86 BPM Atrial Rate 86 BPM P-R Interval 183 ms QRS Duration 99 ms Q -T Interval 407 ms QTC Calculation (Bezet) 487 ms Calculated P [place] 69 degrees Calculated R [place] -57 degrees Ca lculated T [place] 60 degrees Diagnosis Sinus rhythmLeft anterior fascicular blockAbnormal R-wave progress ion, early transitionBorderline prolonged QT intervalLab results reviewed.EKG: Normal sinus rhythm at a r ate of 90 BPM. LAFB present. Interpreted byMaciej Lim MDRadiology:CT Results (Last 48 hours) 02/15/[address] ABD PELV W CONT Final result Impression:IMPRESSION:1. Cholelithiasis now with findings indicative of cholecys titis.Correlate with ultrasound.2. No evidence of small bowel obstruction and resolution ofpreviously noted ascites.3. Sigmoid diverticulosis without evidence of diverticulitis.Stable findings as noted above.One or more of the following dose reduction techniques were used:automated exposure control, adjustm ent of the mA and/or kVaccording to patient size, use of iterative reconstructivetechnique.THIS DOCUMENT SHUKLA S BEEN ELECTRONICALLY SIGNEDMariver Dubose MD02/15/2019 01:33 ESTM.D. Please call Imaging Cold Molding Press Operator [phone] withquestions.This report was electronically signed by:Karissa Dubose MD 02/15/2019 01:34 AM Narrative: Referring Physician: MACIEJ Enriquez Name: VERITO OCAMPO IS A FINAL REPORT FROM IMAGING ON CALLDATE OF SERVICE: 2019-02-15 00:44:25IMAGES: [id number]: CT ABD PELVIS WTECHNIQUE: Helical axial imaging from above the domes ofdiaphragms through the pubic symphysis following administrationof contrast oral ly and 95 cc of Isovue-300 intravenously.Sagittal and coronal reconstructions were obtained.HISTORY: A bdominal pain. History of SBO.COMPARISON: CT abdomen/pelvis of 01/02/2019.FINDINGS:Volume dependent atel ectatic changes are again seen at the imagedlung bases. The imaged heart remains normal in size and nopericardial effusion is seen.The liver measures 18 cm in length and remains mildly hypodense.The spleen, pancreas, and adre nals remain unremarkable.The gallbladder is more distended on the current exam and thereare again multiple calculi seen. There is now pericholecysticfluid seen with minimal pericholecystic haziness and thesefindin gs were not present on the prior exam.Normal cortical enhancement is again seen in both kidneys.Bilateral sallie al cysts, largest in the left kidney in the upperpole and the largest in the right kidney in the peripelvicmidpol e remains stable. No renal or ureteral calculi are seen andno hydronephrosis is noted. The urinary loco dder is unremarkable.No bowel obstruction is seen on the current exam. The appendixremains normal in caliber wi thout signs of appendicitis.Diverticulosis is again noted of the sigmoid colon withoutevidence of diverticulitis. The abdominal aorta remains normal in caliber. Mildatherosclerotic calcifications are again seen in the aor toiliacsystem. No definite lymphadenopathy is seen. No ascites is noted.The previously seen perihepatic an d pelvic ascites has resolved.The uterus remains anteverted. No abnormal adnexal masses areseen.Calcified injecti on granulomas again seen in the buttocks.Degenerative changes again seen in the imaged spine withdextroscoliosis again noted of the lumbar spine. No acute osseouschanges are noted. A transitional vertebra is noted at thelum bosacral junction and this appears to represent a lumbarizedfirst sacral segment.Radiology interpretation reviewe d by Maciej Lim MD<EMERGENCY DEPARTMENT CASE SUMMARY>Impression/Differential Diagnosi s:Verito Velasco is a 53 y.o. Female who present with same abdominal painas prior small bow obstruction. Will get labs, EKG, chest X ray, CT ofabdomen With contrast.ED Course:53 y.o. female presented to the ED c/o waxi ng and waning abdominal painand episodes of vomiting. Order EKG, labs, abdominal CT, urinalysis. Givezofran and fentanyl.The patient received a medication while in the Emergency Department whichcan potentially cause se dation. Prior to receipt of that medication, thepatient was warned of the potential side effects including, bu t notlimited to, drowsiness, dizziness, loss of balance and confusion. Thepatient also was advised not to drive a vehicle, operate machinery, orparticipate in any activities which could potentially result in injury(i.e., standing on a ladder or riding a bicycle) for 24 hours followingreceipt of medication. The patient was advised s he should not drive home.Should discharge be indicated today, she will need to arrange a ridehome.12:35 AM The patient complains of current pain. Will give IV dilaudid.12:38 PM give dilaudid1:[address] results are consisten t with cholecystitis. Will get ultrasound1:39 AM Order abdominal ultrasound3:54 AM The patient developed a pruritic red rash from the dilaudid3:54 AM give benadryl3:57 AM The ultra sound shows galstones. Will call s urgery .Labs and radiology results reviewed.4:38 AM Case presentation and findings discussed with Dr. Hardik guo(general surgery) who said the findings are not consistent withcholecystitis; however. Because the patient received 2 injections forpain, the patient will be admitted to medicine and he will see [facility].6:29 AM Case presentation and findings discussed with Dr. Swift(hospitalist) who agrees to admit the patientPatient was reassessed prior to disposition. Discussed results, diagnosisand treatment plan. Marcial reynolds's questions were answered. Patient agrees withplan to admit.Final Impression/Diagnosis:Encounter Diagnoses ICD-10-CM ICD-9-CM1. Acute cholecystitis K81.0 575.0Patient condition at time of disposition: stableI have rev iewed the following home medications:Prior to Admission medicationsMedication Sig Start Date End Date Taking? Authorizing Providercanagliflozin (INVOKANA PO) Take by mouth. Yes Other, Phys, MDatorvastatin (LIPITOR) 10 mg tablet Take 10 mg by mouth daily.Provider, Candismetoprolol (LOPRESSOR) 50 mg t ablet Take 100 mg by mouth daily.Indications: HYPERTENSION Provider, HistoricalOTHER Take by mouth daily. Florencia Mcfarlane, Calcium, fiber, Vitamin B12 (allOTC) Provider, Maciej Mays MD I, Sabrina D unn, am serving as a scribe to document services personallyperformed by Maciej Lim MD based on my observatio n and the provider'sstatements to me.I, Maciej Lim MD, attest that the person(s) noted above, acting as mys cribe(s) noted above, has observed my performance of the services and hasdocumented them in accordance with my direction. I have personallyreviewed the above information and have ordered and reviewed thediagnostic studi es, unless otherwise noted.ED Orders INVOKANA PO [#[id number]] Priority: Ro utine Class: Historical Med SODIUM CHLORIDE 0.9% BOLUS IV [#[id number]] Priority: STAT Clas s: Normal SODIUM CHLORIDE 0.9 % IJ SYRG [#[id number]] Priority: STAT Class: Normal SODIUM CHLORIDE 0.9 % IJ SYRG [#[id number]] Priority: STAT Class: Normal FENTANYL CITRATE (PF) 50 MCG/ML IJ S* [#[id number]] Priority: STAT Class: Normal ONDANSETRON (PF) 4 MG/2 ML INJECTIO N [#[id number]] Priority: STAT Class: Normal DIATRIZOATE MEGLUMINE & SODIUM 66 %-* [#[id number]] Priority: STAT Class: Normal IOPAMIDOL 61 % IV SOLN [#[id number]] Priority: STAT C lass: Normal HYDROMORPHONE (PF) 1 MG/ML IJ SOLN [#[id number]] Priority: STAT Class: N ormal HYDROmorphone (PF) (DILAUDID) 1 mg/m* [#[id number]] Priority: None DIPHENHYDRAMINE HCL 50 MG/ML IJ SOLN [#[id number]] Priority: STAT Class: Normal ATORVASTATIN 10 MG TAB [#[id number]] Priority: None Class: Normal METOPROLOL TARTRATE 50 MG TAB [#[id number]] Priority: None Class: Normal INSULIN LISPRO 100 UNIT/ML INJECTION [#[id number]] Priority: Non e Class: Normal DEXTROSE 40 % ORAL GEL [#[id number]] Priority: None Class: N ormal GLUCAGON 1 MG INJECTION [#[id number]] Priority: None Class: Normal DEXTROSE 50% IN WATER (D50W) IV SYRG [#[id number]] Priority: None Class: Normal ACETAMINOPHEN 32 5 MG TABLET [#[id number]] Priority: None Class: Normal HYDROCODONE-ACETAMINOPHEN 5 MG-325 M* [#[id number]] Priority: None Class: Normal HYDROMORPHONE (PF) 1 MG/ML IJ SOLN [#[id number]] Priority: None Class: Normal DIPHENHYDRAMINE 25 MG CAP [#[id number]] Priority: None Cla ss: Normal ONDANSETRON (PF) 4 MG/2 ML INJECTION [#[id number]] Priority: None Class: Normal MAGNESIUM HYDROXIDE 400 MG/5 ML ORAL* [#[id number]] Priority: None Class: Normal HEPARIN (PORCINE ) 5,000 UNIT/ML IJ S* [#[id number]] Priority: None Class: Normal PIPERACILLIN-TAZOBACTAM 3.375 GRAM I* [#[id number]] Priority: STAT Class: Normal Antibiotic Indications -> Intra-Abdominal Infection [id number] CBC WITH AUTOMATED DIFF [#[id number]] Priority: STAT Class: ER Collect Sta nding Order Information Remaining Occurrences:0/1 Interval:ONE TIME Last released:0 02/14/2019 Released orders: SunFeb 14, 2019 9:39 PM by: MACIEJ LIM [id number] METABOLIC PANEL, COMPREHENSIVE [#[id number]] Priority: STAT Class: ER Collect Standing Order Information Remain ing Occurrences:0/1 Interval:ONE TIME Last released:02/14/2019 Released orders : SunFeb 14, 2019 9:39 PM by: MACIEJ LIM [id number] LIPASE [#[id number]] Priority: STAT Class: ER Collect Standing Order Information Remaining Occurrences:0/1 In terval:ONE TIME Last released:02/14/2019 Released orders: SunFeb 14, 2019 9:39 PM by: MACIEJ CHAPMAN [id number] URINALYSIS W/ RFLX MICROSCOPIC [#[id number]] Priority: STAT Class: ER Collect S tanding Order Information Remaining Occurrences:0/1 Interval:ONE TIME Last released:0 02/14/2019 Released orders: SunFeb 14, 2019 9:39 PM by: MACIEJ LIM [id number] CBC WITH AUTOMAT ED DIFF [#[id number]] Priority: STAT Class: ER Collect Specimen Source: Whole Blood Specimen C ollected: 02/14/2019 10:05 PM Resulting Agency: [facility] Test ID: [id number] Released on : 02/14/2019 9:39 PM [id number] METABOLIC PANEL, COMPREHENSIVE [#[id number]] Priority: STAT Class: E R Collect Specimen Source: Plasma Specimen Collected: 02/14/2019 10:05 PM Resulting Agency: [facility] Test ID: MPL Released on: 02/14/2019 9:39 PM [id number] LIPASE [#[id number]] Priority: STAT Class: ER Collect Specimen Source: Plasma Specimen Collected: 01/20 10:05 PM Resulting Agency: [facility] Test ID: [id number] Released on: 9:39 PM [id number] URINALYSIS W/ RFLX MICROSCOPIC [#[id number]] Priority: STAT Class: ER Collect Spe cimen Source: Urine Specimen Collected: 02/14/2019 10:05 PM Resulting Agency: [facility]Y Test ID: UA Released on: 02/14/2019 9:39 PM [id number] METABOLIC PANEL, BASIC [#[id number]] Priority: Routine Class: ER Collect Standing Order Information Remaining Occurrences:N/A-not release d Interval:DAILY [id number] CBC WITH AUTOMATED DIFF [#[id number]] Priority: Routine Class : ER Collect Standing Order Information Remaining Occurrences:N/A-not released Interval :DAILY [id number] CT ABD PELV W CONT [#[id number]] Priority: STAT Class: Hospital Performe d Standing Order Information Remaining Occurrences:0/1 Interval:ONE TIME Last released:0 02/14/2019 Released orders: Fri Feb 14, 2019 9:39 PM by: MACIEJ LIM This order utilizes I V contrast. What additional contrast is needed? -> Ora- l [id number] CT ABD PELV W CONT [#[id number]] Priority: STAT Class: Hospital Performed Specimen Collected : 02/14/2019 9:45 PM Resulting Agency: [facility] Test ID: [id number] This order utilizes IV contrast. W hat additional contrast is needed? -> Ora- l Released on: 02/14/2019 9:3 9 PM [id number] US ABD LTD [#[id number]] Priority: STAT Class: Hospital Performe d Standing Order Information Remaining Occurrences:0/1 Interval:ONE TIME Last released:0 02/15/2019 Released orders: Sat Feb 15, 2019 1:39 AM by: MACIEJ LIM Comment:RUQ pain r/o ch olecystitis Specific Body Part -> RUQ pain r/o cholecystitis [id number] US ABD LTD [#[id number]] Priority: STAT Class: Hospital Performed Resulting Agency: [facility] Test ID : [id number] Comment:RUQ pain r/o cholecystitis Specific Body Part -> RUQ pain r/o cholecystitis Release d on: 02/15/2019 1:39 AM [id number] EKG, 12 LEAD, INITIAL [#[id number]] Priority: STAT Class: Hospital Performed Standing Order Information Remaining Occurrences:0/1 Interval:ONE TI ME Last released:02/14/2019 Released orders: SunFeb 14, 2019 9:39 PM by: MACIEJ LIM Reason for Exam: -> abd pain [id number] EKG, 12 LEAD, INITIAL [#[id number]] Priority: STAT Class: Hospital Performed Resulting Agency: [facility] Test ID: [id number] Reason for Exam: -> abd pain Rele ased on: 02/14/2019 9:39 PM CON4 IP CONSULT TO GENERAL SURGERY [#[id number]] Priority: STAT Clas s: Hospital Performed Standing Order Information Remaining Occurrences:0/1 Interval:ONE TI ME Last released:02/15/2019 Released orders: [facility] Feb 15, 2019 3:57 AM by: MACIEJ LIM Reason for Consult: -> gallstones Did you call or speak to the consulting provider? -> No Consult To -> dr elver OVALLE4 IP CONSULT TO GENERAL SURGERY [#[id number]] Priority: STAT Class: H ospital Performed Reason for Consult: -> gallstones Did you call or speak to the consulting provider ? -> No Consult To -> dr raya Released on: 02/15/2019 3:57 AM CON25 IP CONSULT TO HOSPITALIST [#[id number]] Priority: STAT Class: Hospital Performed Standing Order Information Remainin g Occurrences:0/1 Interval:ONE TIME Last released:02/15/2019 Released orders : [facility] Feb 15, 2019 5:07 AM by: MACIEJ LIM Reason for Consult: -> TO ADMIT Did you call o r speak to the consulting provider? -> No Consult To -> dr peters CON25 IP CONSULT TO HOSPITALIST [#[id number]] Priority: STAT Class: Hospital Performed Reason for Consult: -> TO ADMIT Did you call or speak to the consulting provider? -> No Consult To -> dr peters Released on: 02/15/2019 5 :07 AM [id number] NURSING-MISCELLANEOUS: [#[id number]] Priority: STAT Class: Hospital Performe d Standing Order Information Remaining Occurrences:N/A-not released Interval:CONTINUOUS Shailesh cription of Order: -> Initiate Hypoglycemia protocol if blood glucose is less than 70 mg/dL [id number] NURSING-MISCELLANEOUS: [#[id number]] Priority: STAT Class: Hospital Performe d Standing Order Information Remaining Occurrences:N/A-not released Interval:CONTINUOUS Shailesh cription of Order: -> FOR CONSCIOUS PATIENT: Administer 4 ounces fruit juice OR regula r soda OR 15 grams dextrose 40% oral gel. [id number] NURSING-MISCELLANEOUS: [#[id number]] Priority: STAT Class: Hospital Performed Standing Order Information Remainin g Occurrences:N/A-not released Interval:CONTINUOUS Description of Order: -> FOR UNCONSCIOUS OR CHANGE-I [id number] PATIENT: If blood glucose is greater than or equal to 50 administer 25 mL of 50% dextrose solution IV push, if blood glucose is less than 50, administer 50 mL IV push. If no IV, administer Glucagon 1 mg IM. [id number] NURSING-MISCELLANEOUS: [#[id number]] Priority: STAT Class: H ospital Performed Standing Order Information Remaining Occurrences:N/A-not released Interval :CONTINUOUS Description of Order: - > Repeat finger stick blood glucose in 15 minutes AFTER treatment, if less than 80 mg/dL repeat hypoglycemic protocol and notif y provider. [id number] NURSING- MISCELLANEOUS: [#[id number]] Priority: STAT Class: Hospital Perfo rmed Standing Order Information Remaining Occurrences:N/A-not released Interval:CONTINUOUS Shailesh cription of Order: -> Following Hypoglycemic Protocol: Once patient is fully alert and BG greater than or equal to 80 mg/dL, provide a small snack. If NPO consider IV fluids with dextrose. [id number] NURSING-MISCELLANEOUS: [# [id number]] Priority: STAT Class: Hospital Performed Standing Order Information Remaining Occurre nces:N/A-not released Interval:CONTINUOUS Description of Order: -> Document all interventions in the [facility] Medical Record (EMR). [id number] NURSING-MISCELLANEOUS: [# [id number]] Priority: STAT Class: Hospital Performed Standing Order Information Remaining Occurre nces:N/A-not released Interval:CONTINUOUS Description of Order: -> Blood glucose targets -- ICU: 140 - 1 80 mg/dL; NON-ICU: 100 - 180 mg/dL [id number] VITAL SIGNS [# [id number]] Priority: Timed Class: Hospital Performed Standing Order Information Remaining Occurre nces:N/A-not released Interval:CONTINUOUS [id number] BEDREST, COMPLETE [#[id number]] Miri eldery: Routine Class: Hospital Performed Standing Order Information Remaining Occurrences:N/A-not release d Interval:CONTINUOUS [id number] APPLY/MAINTAIN SEQUENTIAL COMPRESSIO* [#[id number]] Priority: STAT Class: H ospital Performed Standing Order Information Remaining Occurrences:N/A-not released Interval :CONTINUOUS COD2 FULL CODE [#[id number]] Priority: Routine Class: Hospital Pe rformed Standing Order Information Remaining Occurrences:N/A-not released Interval:CONTINUOUS [id number] INITIAL PHYSICIAN ORDER: INPATIENT [#[id number]] Priority: Routine Class: ADT Pend Transfer Sta nding Order Information Remaining Occurrences:0/1 Interval:ONE TIME Last released:0 02/15/2019 Released orders: Sat Feb 15, 2019 5:40 AM by: BANDAR SWIFT Status: -> INPATIE NT Inpatient Hospitalization Certified Necessary for the Following Reasons -> 3- . P- a- t- i- e- n- t r- e- c- e- i- v- i- n- g t- r- e- a- t- m- e- n- t t- h- a- t c- a- n o- n- l- y b- e p- r- o- v- i- d- e- d i- n a- n i- n- p- a- t- i- e- n- t s- e- t- t- i- n- g (- f- u- r- t- h- e- r c- l- a- r- i- f- i- c- a- t- i- o- n i- n H- &- P d- o- c- u- m- e- n- t- a- t- i- o- n- ) Admitting Diagnosis -> Acute calculous cholecystitis Admitting Physician -> BANDAR WSIFT Attending Physician -> BANDAR SWIFT Estimated Length of Stay -> 3-4 Midnights Discharge Preeti n: -> Home with Office Follow-up [id number] INITIAL PHYSICIAN ORDER: INPATIENT [#[id number]] Priority: R outine Class: ADT Pend Transfer Status: -> INPATIENT Inpatient Hospitalization Certified Katalina jimenez for the Following Reasons -> 3 - . P- a- t- i- e- n- t r- e- c- e- i- v- i- n- g t- r- e- a- t- m- e- n- t t- h- a- t c- a- n o- n- l- y b- e p- r- o- v- i- d- e- d i- n a- n i- n- p- a- t- i- e- n- t s- e- t- t- i- n- g (- f- u- r- t- h- e- r c- l- a- r- i- f- i- c- a- t- i- o- n i- n H- &- P d- o- c- u- m- e- n- t- a- t- i- o- n- ) Admitting Diagnosis -> Acute calculou s cholecystitis Admitting Physician -> BANDAR SWIFT Attending Physician -> BANDAR SWIFT Estimated Length of Stay -> 3-4 Midnights Discharge Plan: -> Home with Office Follow-up Released o n: 02/15/2019 5:40 AM [id number] DIET NPO [#[id number]] Priority: STAT Class: H ospital Performed Standing Order Information Remaining Occurrences:N/A-not released Interval :DIET EFFECTIVE Verito Orr MR#: [id number] * Rm: [id number]: 5' 2" Wt: 190 lb Code: Prior Iso:Diagnosis:Acute calculous cholecystitis [K80.00]Allergies: No Know n Allergies -------- Current as of: 02/15/19 0743 GI=Given IC=IV Completed NB=N ew Bag --ketorolac (TORADOL) injection 15 mg # [id number] Admin Amount: 0.5 mL = 15 mg of 30 mg/mL Ordered Dose: 15 mg Route: IntraVENous Fr eq: PRIOR TO DISCHARGE Start Date: 12/08/13 No administration times (back 96 hours, ahead 96 hours). ------ceFAZolin (ANCEF) 1 g in 0.9% sodium chloride (MBP/ADV) 50 mL MBP #[id number] Admin Amount: 1 g Ordered Dose: 1 g Route: IntraVENous Freq: ONCE Start Date: 05/26/15 Rate: 100 mL/hr Duration: 30 Minutes No administration times (back 96 hours, ahead 96 hours). ------diatrizoate sari-diatrizoat sod (EMMANUELGASTROVIEW,GASTROGRAFIN) 66-10 % *#[id number] Admin Amount: 30 mL Ordered Dose: 30 mL Route: Oral Freq: RAD ONCE Start Date: 01/02/19 No administration times (back 96 hours, ahead 96 hours). ------0.9% sodium chloride infusion 1,000 mL #[id number] Admin Amount: 1,000 mL Ordered Dose: 1,000 mL Route: IntraVENous Freq: NOW Start Date: 01/02/19 Rate: 1,000 mL/hr Duration: No administration times (back 96 hours, ahead 96 hours). ------famotidine (PF) (PEPCID) injection 20 mg #[id number] Admin Amount: 20 mg Ordered Dose: 20 mg Route: IntraVENous Freq: NOW Start Date: 01/02/19 No administration times (back 96 hours, ahead 96 hours). ------ondansetron (ZOFRAN) injection 4 mg #[id number] Admin Amount: 2 mL = 4 mg of 4 mg/2 mL Ordered Dose: 4 mg Route: Int raVENous Freq: NOW Start Date: 01/02/19 No administration times (back 96 hours, ahe ad 96 hours). ------iopamidol (ISOVUE 300) 61 % contrast injection 100 mL #[id number] Admin Amount: 100 mL Ordered Dose: 100 mL Route: IntraVENous Freq: RAD ONCE Start Date: 01/02/19 No administration times (back 96 hours, ahead 96 hours).Celine Velasco MR#: [id number] * Rm: 410-02Ht: 5' 2" Wt: 190 lb Code: Prior I so:Diagnosis:Acute calculous cholecystitis [K80.00]Allergies: No Known Allergies -------- Current as of: 02/15/19 0743 GI=Given IC=IV Completed NB=N ew Bag --lidocaine (XYLOCAINE) 2 % viscous solution 15 mL #[id number] Admin Amount: 15 mL Ordered Dose: 15 mL Route: Mouth/Throat Freq: NOW Start Date: 01/02/19 No administration times (back 96 hours, ahead 96 hours). ------HYDROcodone-acetaminophen (NORCO) 5-325 mg per tablet 1 Tab #[id number] Admin Amount: 1 Tab Ordered Dose: 1 Tab Route: Oral Freq: EVERY 4 HOURS NEE DED Start Date: 01/02/19 No administration times (back 96 hours, ahead 96 hours). ------HYDROmorphone (PF) (DILAUDID) injection 1 mg #[id number] Admin Amount: 1 mL = 1 mg of 1 mg/mL Ordered Dose: 1 mg Route: Int raVENous Freq: EVERY 4 HOURS NEEDED Start Date: 01/02/19 No administration times (back 96 hours, ahe ad 96 hours). ------mineral oil 30 mL #[id number] Admin Amount: 30 mL Ordered Dose: 30 mL Route: Per NG tube Freq: ONCE Start Date: 01/03/19 No administration times (back 96 hours, ahead 96 hours). ------magnesium hydroxide (MILK OF MAGNESIA) 400 mg/5 mL oral suspension 3*#[id number] Admin Amount: 30 mL Ordered Dose: 30 mL Route: Per NG tube Ankur q: ONCE Start Date: 01/03/19 No administration times (back 96 hours, ahead 96 hours). ------iopamidol (ISOVUE-370) 76 % injection 100 mL #[id number] Admin Amount: 100 mL Ordered Dose: 100 mL Route: IntraVENous Freq: RAD ONCE Start Date: 01/03/19 No administration times (back 96 hours, ahead 96 hours). ------sodium chloride 0.9 % bolus infusion 1,000 mL #[id number] Admin Amount: 1,000 mL Ordered Dose: 1,000 mL Route: IntraVENo us Freq: ONCE Start Date: 02/14/19 Administration times (back 96 hours, ahead 96 hours): 02/14/19: 8NB 02/15/19: 0700PARAGVerito Velasco MR#: [id number] * Rm: 410-02H t: 5' 2" Wt: 190 lb Code: Prior Iso:Diagnosis:Acute calculous cholecysti tis [K80.00]Allergies: No Known Allergies -------- Current as of: 02/15/19 0743 GI=Given IC=IV Completed NB=N ew Bag --sodium chloride (NS) flush 5-40 mL #[id number] Admin Amount: 5-40 mL Ordered Dose: 5-40 mL Route: IntraVENous Freq: EVERY 8 HOUR S Start Date: 02/14/19 Administration times (back 96 hours, ahead 96 hours): 02/14/19: 9GI 01/20 01/06: 0645GI 139902/16/19: 59902/17/19: 59902/18/19: 59902/19/19: 599 ---sodium chloride (NS) flush 5-40 mL #[id number] Admin Amount: 5-40 mL Ordered Dose: 5-40 mL Route: IntraVENous Freq: NEEDED Start Date: 02/14/19 No administration times (back 96 hours, ahead 96 hours). ------fentaNYL citrate (PF) injection 50 mcg #[id number] Admin Amount: 1 mL = 50 mcg of 50 mcg/mL Ordered Dose: 50 mcg R oute: IntraVENous Freq: NOW Start Date: 02/14/19 Administration times (back 96 hours, e ad 96 hours): 02/14/19: 2218GI -----ondansetron (ZOFRAN) injection 4 mg #[id number] Admin Amount: 2 mL = 4 mg of 4 mg/2 mL Ordered Dose: 4 mg Route: Int raVENous Freq: NOW Start Date: 02/14/19 Administration times (back 96 hours, e ad 96 hours): 02/14/19: 2218GI -----diatrizoate sari-diatrizoat sod (MD-GASTROVIEW,GASTROGRAFIN) 66-10 % *#[id number] Admin Amount: 30 mL Ordered Dose: 30 mL Route: Oral Freq: RAD ONCE Start Date: 02/14/19 Administration times (back 96 hours, ahead 96 hours): 02/14/19: 2218GI -----iopamidol (ISOVUE 300) 61 % contrast injection 100 mL #[id number] Admin Amount: 100 mL Ordered Dose: 100 mL Route: IntraVENous Freq: RAD ONCE Start Date: 02/15/19 Administration times (back 96 hours, ahead 96 hours): 02/15/19: 0050GIVerito Byrd MR#: [id number] * Rm: 410-02Ht: 5' 2" Wt: 190 lb Cod e: Prior Iso:Diagnosis:Acute calculous cholecystitis [K80.00]Allergies: No Known Allergies -------- Current as of: 02/15/19 0743 GI=Given IC=IV Completed NB=N ew Bag --HYDROmorphone (PF) (DILAUDID) injection 1 mg # [id number] Admin Amount: 1 mL = 1 mg of 1 mg/mL Ordered Dose: 1 mg Route: IntraVENous Freq: NOW Start Date: 02/15/19 Administration times (back 96 hours, ahead 96 hours): : 0039 0152GI -----diphenhydrAMINE (BENADRYL) injection 25 mg #[id number] Admin Amount: 0.5 mL = 25 mg of 50 mg/mL Ordered Dose: 25 mg Route: IntraVENous Freq: NOW Start Date: 02/15/19 Administration times (back 96 hours, ahead 96 hours): 02/15/19: 0357GI -----piperacillin-tazobactam (ZOSYN) 3.375 g in 0.9% sodium chloride (MBP*#[id number] Admin Amount: 3.375 g Ordered Dose: 3.375 g Route: IntraVENous Freq: EVERY 8 H OURS Start Date: 02/15/19 Rate: 25 mL/hr Duration: 240 Minutes Administration t imes (back 96 hours, ahead 96 hours): 02/15/19: 0645NB 0700IC 1400 2200 02/16/19: 0600 1400 2200 : 0600 1400 2200 02/18/19: 0600 1400 2200 02/19/19: 0600 ED Aren weston OP Medicationscanagliflozin (INVOKANA PO)Sig:Take by mouth.Dispense Amount:Start Date:End Date:Doc. Provider : Other, Phys, MDatorvastatin (LIPITOR) 10 mg tabletSig:Take 10 mg by mouth daily.Dispense Amount:Start Date:E nd Date:Doc. Provider: Provider, Candismetoprolol (LOPRESSOR) 50 mg tabletSig:Take 100 mg by mouth daily. In dications: HYPERTENSIONDispense Amount:Start Date:End Date:Doc. Provider: Provider, HistoricalOTHERSig:T erik by mouth daily. Vitamin D, Calcium, fiber, Vitamin B12 (all OTC)Dispense Amount:Start Date:End Date: Doc. Provider: Provider, Historical ED Prescriptions None on FileFollow-up InformationNone Name Value Range Interpretation Code Description Data Gissell rce(s) Supporting Document(s ) ID Date Data Source [id number] 02/15/2019 07:23:[address] [facility] Dr. Kong at bedside evaluating pt Name Value Range Interpretation Code Description Data [facility] rce(s) Supporting Document(s ) ID Date Data Source [id number] 02/15/2019 07:22:[address] [facility] Patient reassessed prior to transfer to [address] MED SURG, vital signsupdated, results and orders reviewed. The [facility] SBAR report is available inConnectCare. The sending nurse, Thelma Hobbs RN, i s available to answerquestions until 1930 in the [facility] Emergency Department at [phone], a fter which timequestions should be directed to the Emergency Department Charge Nurse . Name Value Range Interpretation Code Description Data [facility] rce(s) Supporting Document(s ) ID Date Data Source [id number] 02/15/2019 07:16:[address] [facility] History and PhysicalPatient: Verito askew Sex: female DOA: 02/14/2019Date of : 1965 Age: 53 y.o.HPI:Verito Velasco is a 53 y.o. female with h/o small bowel obst ruction,hypertension and diabetes who returns to the ED via c/o waxing and waningabdom inal pain and episodes of vomiting. The patient states last month she hadan epis ode of a small bowel obstruction with similar symptoms and was admittedto the hospital . She claims she had eaten salad with meat and within 15 minutesshe had sharp pain along her upper abdomen and felt nausea. The patientcomplains that her stomach is swo llen and the adominal pain worse when touchedand she cannot lie down.In Er, CT abdomen showed acute calculous cholecystitis. She will be admitted forI V Abx, pain control and surgical evaluation.Denies any chest pain, SOB, c oughing or palpitations. No diarrhea. No fever orchills. No dysurea or polyurea. No Skin rashReview of Systems: All 10 point review of systems was otherwise discusse d andnegativePast Medical History:Diagnosis Date Diabetes (HCC) diet controlled pre -diabetic Hypertension SBO (small bowel obstruction) (HCC) Trigger finger of le ft hand 12/08/2013Past Surgical History:Procedure Laterality Date HX OR THOPAEDIC right carpal tunnelFamily HistoryProblem Relation Age of Onset Di abetes Mother Heart Disease MotherSocial HistorySocioeconomic History Marital st atus: Spouse name: Not on file Number of children: Not on file Years o f education: Not on file Highest education level: Not on fileTobacco Use Smoking s tatus: Current Every Day Smoker Packs/day: 0.50 Years: 20.00 Pack years: 10.00 S mokeless tobacco: Never UsedSubstance and Sexual Activity Alcohol use: Yes Comme nt: socially. Drug use: No Sexual activity: Not Currently Partners: MalePrior to Ad mission medicationsMedication Sig Start Date End Date Taking? Authorizing Providercan agliflozin (INVOKANA PO) Take by mouth. Yes Other, Phys, MDatorvastatin (LIPITOR ) 10 mg tablet Take 10 mg by mouth daily. Provider,Historicalmetoprolol (LOPRESSOR ) 50 mg tablet Take 100 mg by mouth daily. Indications:HYPERTENSION Provider, Hi storicalOTHER Take by mouth daily. Vitamin D, Calcium, fiber, Vitamin B12 (all OTC) Provider, HistoricalNo Known AllergiesPhysical Exam:VITALS:Visit Gloria lsBP (!) 143/92Pulse 92Temp 98.4 F (36.9 C)Resp 18Ht 5' 2" (1.575 m)Wt 86.2 kg (1 90 lb)SpO2 95%BMI 34.75 kg/m Temp (24hrs), Av.4 F (36.9 C), Min:98.3 F (36.8 C), Max:98.4 F (36.9 C)PHYSICAL EXAM:General: Alert, cooperative, no distressHead: Normocephalic, atraumatic.Eyes: Conjunctivae clear, a nicteric sclerae.Neck: Supple, thyroid: non tenderLungs: Clear to auscultation jayda aterally.Heart: S1 S2 Regular rate and rhythm, no murmurAbdomen: Soft, RUQ + epigastric tenderness. Not distended. Bowel soundsnormal.Extremities: No cyanosis. No edema. No clubbingSkin: turgor normal. No rashesNeurologic: Alert and oriente d X 3.Labs Reviewed:Ct Abd Pelv W ContResult Date: 02/15/2019Referring Physician: AVERY LIM Patient Name: VERITO VELASCO THIS IS AFINAL REPORT FROM [facility] TE OF SERVICE: 2019-02-15 00:44:25 IMAGES:471 EXAM: CT ABD PELVIS W TECHNIQUE: Helical axial imaging from above the domesof diaphragms through the pubic symphysis f ollowing administration of contrastorally and 95 cc of Isovue-300 intravenously. Sagit roxana and coronalreconstructions were obtained. HISTORY: Abdominal pain. History of SBO. COMPARISON: CT abdomen/pelvis of 01/02/2019. FINDINGS: Volume dependentatelectatic ch anges are again seen at the imaged lung bases. The imaged heartremains normal in size and no pericardial effusion is seen. The liver [id number] cm in length and re brooks mildly hypodense. The spleen, pancreas, and adrenalsremain unremarkable. The gal lbladder is more distended on the current exam andthere are again multiple calculi seen. There is now pericholecystic fluid seenwith minimal pericholecystic hazines s and these findings were not present on theprior exam. Normal cortical enhanceme nt is again seen in both kidneys. Bilateralrenal cysts, largest in the lef t kidney in the upper pole and the largest in theright kidney in the peripelvic midpol e remains stable. No renal or ureteralcalculi are seen and no hydronephrosis is noted. The urinary bladder isunremarkable. No bowel obstruction is seen on the current exam. The appendixremains normal in caliber without signs of appendicitis. Diverticu losis is againnoted of the sigmoid colon without evidence of diverticulitis. The abdominalaorta remains normal in caliber. Mild atherosclerotic calcifications are againseen in the aortoiliac system. No definite lymphadenopathy is seen. No asc itesis noted. The previously seen perihepatic and pelvic ascites has resolved. Theuter us remains anteverted. No abnormal adnexal masses are seen. Calcifiedinjection gran ulomas again seen in the buttocks. Degenerative changes again seenin the im aged spine with dextroscoliosis again noted of the lumbar spine. Noacute osseous clara nges are noted. A transitional vertebra is noted at thelumbosacral junction and thi s appears to represent a lumbarized first sacralsegment.IMPRESSION: 1. Cholelithia sis now with findings indicative of cholecystitis.Correlate with ultrasound. 2. No evidence of small bowel obstruction andresolution of previously noted ascite s. 3. Sigmoid diverticulosis withoutevidence of diverticulitis. Stable findings as no hemalatha above. One or more of thefollowing dose reduction techniques were used: automate d exposure control,adjustment of the mA and/or kV according to patient size, use of iterativereconstructive technique. THIS DOCUMENT HAS BEEN ELECTRONICALLY SIGNEDM margareth Dubose MD 02/15/2019 01:33 KEVIN Driscoll Please call Imaging On [phone] RAMIREZ ([phone]) with questions. This report was electronically signedby: Karissa Dubose MD 02/15/2019 01:34 AMRecent Results (from the past 24 hour(s))CBC WI TH AUTOMATED DIFF Collection Time: 02/14/19 10:05 PMResult Value Ref Range WBC 9.8 4 .8 - 10.6 K/uL RBC 4.57 4.20 - 5.40 M/uL HGB 14.9 12.0 - 16.0 g/dL HCT 43.6 36.0 - 47 .0 % MCV 95.4 (H) 81.0 - 94.0 FL MCH 32.6 27.0 - 35.0 PG MCHC 34.2 30.7 - 37.3 g/d L RDW 12.8 11.5 - 14.0 % PLATELET 188 130 - 400 K/uL MPV 10.9 9.2 - 11.8 FL NEUTROPH ILS 72 48.0 - 72.0 % LYMPHOCYTES 18 18.0 - 40.0 % MONOCYTES 8 2.0 - 12.0 % EOSINOPH ILS 2 0.0 - 7.0 % BASOPHILS 0 0.0 - 3.0 % ABS. NEUTROPHILS 7.0 (H) 1.5 - 6.6 K/UL ABS. LYMPHOCYTES 1.8 1.5 - 3.5 K/UL ABS. MONOCYTES 0.8 0.0 - 1.0 K/UL ABS. EOSINO PHILS 0.2 0.0 - 0.7 K/UL ABS. BASOPHILS 0.0 0.0 - 0.1 K/UL DF AUTOMATED IMMATURE GRA NULOCYTES 0 0.0 - 2.0 %METABOLIC PANEL, COMPREHENSIVE Collection Time: 02/14/19 10:05 PMResult Value Ref Range Sodium 138 136 - 145 mmol/L Potassium 3.6 3.5 - 5.1 mmo l/L Chloride 106 98 - 107 mmol/L CO2 28 21 - 32 mmol/L Anion gap 8 (L) 10 - 20 mmol/L Glucose 143 (H) 74 - 106 mg/dL BUN 11 7 - 18 mg/dL Creatinine 0.72 0.40 - 1.16 mg/dL GFR est AA >60 >60 ml/min/1.73m2 GFR est non-AA >60 >60 ml/min/1.73m2 Calcium 9.2 8.5 - 10.1 mg/dL Bilirubin, total 0.7 0.2 - 1.0 mg/dL ALT (SGPT) 37 13 - 61 U/L AST (SGOT) 14 (L) 15 - 37 U/L Alk. phosphatase 96 45 - 117 U/L Protein, total 7.1 6.4 - 8. 2 g/dL Albumin 3.8 3.5 - 4.7 g/dL Globulin 3.3 1.7 - 4.7 g/dL A-G Ratio 1.1 0.7 - 2 .8LIPASE Collection Time: 02/14/19 10:05 PMResult Value Ref Range Lipase 74 73 - 393 U/LURINALYSIS W/ RFLX MICROSCOPIC Collection Time: 02/14/19 10:05 PMResult Value Ref Range Color YELLOW YEL Appearance CLOUDY (A) CLEAR Specific gravity 1.021 1.003 - 1.030 pH (UA) 6.0 4.6 - 8.0 Protein NEGATIVE NEG mg/dL Glucose NEGATIVE NE G mg/dL Ketone 5 (A) NEG mg/dL Bilirubin NEGATIVE NEG Blood NEGATIVE NEG Urobil inogen 0.2 0.2 - 1.0 EU/dL Nitrites NEGATIVE NEG Leukocyte Esterase NEGATIVE NEG WBC 0-3 0 - 5 /hpf RBC 0-3 0 - 3 /hpf Epithelial cells 0-3 0 - 10 /hpf Bacteria NONE NONE /hpf Casts 0-3 (A) NONE /lpf Crystals, urine NONE NONE /LPFEKG, 12 LEAD, SUBSEQUENT C ollection Time: 02/14/19 10:31 PMResult Value Ref Range Ventricular Rate 86 BPM Atrial Rate 86 BPM P-R Interval 183 ms QRS Duration 99 ms Q-T Interval 407 ms QTC Calculatio n (Bezet) 487 ms Calculated P [place] 69 degrees Calculated R [place] -57 degrees Calculated T [place] 60 degrees Diagnosis Sinus rhythmLeft anterior fascicular blockAbno rmal R-wave progression, early transitionBorderline prolonged QT interv alAssessment/PlanActive Problems: Acute calculous cholecystitis (02/15/2019) will start patient on IV zosyn. Pain control with IV Dilaudid. Keep patientNPO. PRN zofran for vomiting. Surgical consult.HLContinue StatinsHTNContinue LopressorDiabetesISS. Patient will be NPODVT Prophylaxis:[] Venodynes[] Lovenox[x] Heparin[] No Love nox or Heparin for risk of bleedingTotal time spent with patient: 30 Minutes Warren Alexander 20185:42 AM Name Value Range Interpretation Code Description Data Gissell rce(s) Supporting Document(s ) ID Date Data Source [id number] 02/15/2019 07:08:[address] [facility] SBAR given to Thelma ROBERT. Name Value Range Interpretation Code Description Data Gissell rce(s) Supporting Document(s ) ID Date Data Source [id number] 02/15/2019 06:43:[address] [facility] The history is provided by the patient.9 :10 PM: Verito Velasco is a 53 y.o. female with h/o small bowel obstruction,hyperte nsion and diabetes who returns to the ED via c/o waxing and waningabdominal pain and episodes of vomiting. The patient states last month she hadan episode of a small bowel obstruction with similar symptoms and was admittedto the hospital. She claims she had eaten salad with meat and within 15 minutesshe had sharp pain along her uppe r abdomen and felt nausea. The patientcomplains that her stomach is swo llen and the adominal pain worse when touchedand she cannot lie down. No other constitutional symptoms at this time. Thepatient also states that she fell and scraped her knee, elbow and fingers. Noother complaints at this time.PCP: Dr. Alaniz Medical History:Diagnosis Date Diabetes (HCC) diet controlled pre-diabe tic Hypertension SBO (small bowel obstruction) (HCC) Trigger finger of le ft hand 12/08/2013Past Surgical History:Procedure Laterality Date HX OR THOPAEDIC right carpal tunnelFamily History:Problem Relation Age of Onset D iabetes Mother Heart Disease MotherSocial HistorySocioeconomic History Marital st atus: Spouse name: Not on file Number of children: Not on file Years o f education: Not on file Highest education level: Not on fileOccupational History Not on fileSocial Needs Financial resource strain: Not on file Food insecurity: W orry: Not on file Inability: Not on file Transportation needs: Medical: Not on f ile Non-medical: Not on fileTobacco Use Smoking status: Current Every Day Smoker Packs/day: 0.50 Years: 20.00 Pack years: 10.00 Smokeless tobacco: Never UsedSubs tance and Sexual Activity Alcohol use: Yes Comment: socially. Drug use: No Sexual activity: Not Currently Partners: MaleLifestyle Physical activity: Days per week: Not on file Minutes per session: Not on file Stress: Not on fileRelation ships Social connections: Talks on phone: Not on file Gets together: Not on file Attends nondenominational service: Not on file Active member of club or organization: N ot on file Attends meetings of clubs or organizations: Not on file Relationship status: Not on file Intimate partner violence: Fear of current or ex partner : Not on file Emotionally abused: Not on file Physically abused: Not on file Fo rced sexual activity: Not on fileOther Topics Concern Not on fileSocial History Narra tive Not on fileALLERGIES: Patient has no known allergies.Review of SystemsHENT: N egative for ear pain and sore throat.Eyes: Negative for pain and discharge.Respirat ory: Negative for shortness of breath and wheezing.Cardiovascular: Negative for ch est pain and palpitations.Gastrointestinal: Positive for abdominal pain, nausea and vomiting. Negative forabdominal distention.Musculoskeletal: Negative for joint swelling.Skin: Negative for color change and rash.Neurological: Negative f or dizziness and speech difficulty.Psychiatric/Behavioral: Negat nelson for agitation and behavioral problems.Vitals: 02/14/19 2230 02/15/19 0245 02/15/19 0300 02/15/19 0436BP: (!) 152/94 121/80 116/80 (!) 143/92Pulse: 83 92Resp: 18 18Temp: 98.4 F (36.9 C)SpO2: 95%Weight:Height: 2:45 AM Pulse Oxim etry reading is 95% on room air, which indicates normaloxygenation per St dave Lim MD.Physical ExamConstitutional: She is oriented to person, place, and time. She appearswell-developed and well-nourished. She appears distressed.The patient is in severe pain and distressHENT:Head: Normocephalic and atraumatic.Eyes: Pupil s are equal, round, and reactive to light. EOM are normal.Neck: Normal range of mot ion. Neck supple.Cardiovascular: Normal rate, regular rhythm and normal heart sounds. Examreveals no gallop and no friction rub.No murmur heard.Pulmonary/Chest: Effort nor mal and breath sounds normal. No respiratorydistress. She has no wheezes. She has no rales.Abdominal: Soft. Bowel sounds are normal. She exhibits no diste nsion. There istenderness. There is guarding. There is no rebound.The patient has reynaldo re upper abdominal tenderness.Musculoskeletal: Normal range of motion. She exhibits no edema.The patient has rull range of motionNeurological: Sh e is alert and oriented to person, place, and time.Grossly nonfocalSkin: Skin is warm and dry. Abrasion noted. No rash noted.The patient has an abrasion to the right elb ow, right knee and fingers 3, 4 and5.Psychiatric: She has a normal mood and affect. Her behavior is normal.Nursing note and vitals reviewed.MDMNumber of Di agnoses or Management OptionsAcute cholecystitis:Amount and/or Complexity o f Data ReviewedClinical lab tests: ordered and reviewedTests in the radiology secti on of CPT : ordered and reviewedDecide to obtain previous medical records or to ob tain history from someoneother than the patient: yesReview and summarize past me dical records: yesDiscuss the patient with other providers: yesIndependent visualiz ation of images, tracings, or specimens: yesProCarina Barlow Stephen, MD, saúl wed the patient's past history, allergies and homemedications as documented in the [place].Labs:Recent Results (from the past 12 hour(s))CBC WITH AUTOMATED DIFF Colle ction Time: 02/14/19 10:05 PMResult Value Ref Range WBC 9.8 4.8 - 10.6 K/uL RBC 4.57 4 .20 - 5.40 M/uL HGB 14.9 12.0 - 16.0 g/dL HCT 43.6 36.0 - 47.0 % MCV 95.4 (H) 81.0 - 9 4.0 FL MCH 32.6 27.0 - 35.0 PG MCHC 34.2 30.7 - 37.3 g/dL RDW 12.8 11.5 - 14.0 % PLATE LET 188 130 - 400 K/uL MPV 10.9 9.2 - 11.8 FL NEUTROPHILS 72 48.0 - 72.0 % LYMPHOCYTES 18 18.0 - 40.0 % MONOCYTES 8 2.0 - 12.0 % EOSINOPHILS 2 0.0 - 7.0 % BASOPHILS 0 0. 0 - 3.0 % ABS. NEUTROPHILS 7.0 (H) 1.5 - 6.6 K/UL ABS. LYMPHOCYTES 1.8 1.5 - 3.5 K/UL ABS. MONOCYTES 0.8 0.0 - 1.0 K/UL ABS. EOSINOPHILS 0.2 0.0 - 0.7 K/UL ABS. BASO PHILS 0.0 0.0 - 0.1 K/UL DF AUTOMATED IMMATURE GRANULOCYTES 0 0.0 - 2.0 %METAB OLIC PANEL, COMPREHENSIVE Collection Time: 02/14/19 10:05 PMResult Value Ref Range Sodium 138 136 - 145 mmol/L Potassium 3.6 3.5 - 5.1 mmol/L Chloride 106 98 - 107 mmol/ L CO2 28 21 - 32 mmol/L Anion gap 8 (L) 10 - 20 mmol/L Glucose 143 (H) 74 - 106 mg/dL BUN 11 7 - 18 mg/dL Creatinine 0.72 0.40 - 1.16 mg/dL GFR est AA >60 >60 ml/min/1.7 3m2 GFR est non-AA >60 >60 ml/min/1.73m2 Calcium 9.2 8.5 - 10.1 mg/dL Bilirubin, total 0.7 0.2 - 1.0 mg/dL ALT (SGPT) 37 13 - 61 U/L AST (SGOT) 14 (L) 15 - 37 U/L Alk . phosphatase 96 45 - 117 U/L Protein, total 7.1 6.4 - 8.2 g/dL Albumin 3.8 3.5 - 4.7 g/dL Globulin 3.3 1.7 - 4.7 g/dL A-G Ratio 1.1 0.7 - 2.8LIPASE Collection Time: 10:05 PMResult Value Ref Range Lipase 74 73 - 393 U/LURINALYSIS W/ RFLX MICROS COPIC Collection Time: 02/14/19 10:05 PMResult Value Ref Range Color YELLOW YE L Appearance CLOUDY (A) CLEAR Specific gravity 1.021 1.003 - 1.030 pH (UA) 6.0 4.6 - 8.0 Protein NEGATIVE NEG mg/dL Glucose NEGATIVE NEG mg/dL Ketone 5 (A) NEG mg/ dL Bilirubin NEGATIVE NEG Blood NEGATIVE NEG Urobilinogen 0.2 0.2 - 1.0 EU/dL Nit rites NEGATIVE NEG Leukocyte Esterase NEGATIVE NEG WBC 0-3 0 - 5 /hpf RBC 0-3 0 - 3 /hpf Epithelial cells 0-3 0 - 10 /hpf Bacteria NONE NONE /hpf Casts 0-3 (A) NO NE /lpf Crystals, urine NONE NONE /LPFEKG, 12 LEAD, SUBSEQUENT Collection Time: 10:31 PMResult Value Ref Range Ventricular Rate 86 BPM Atrial Rate 86 BPM P-R Inter gume 183 ms QRS Duration 99 ms Q-T Interval 407 ms QTC Calculation (Bezet) 487 ms Ca lculated P [place] 69 degrees Calculated R [place] -57 degrees Calculated T [place] 60 degrees Diagnosis Sinus rhythmLeft anterior fascicular blockAbnormal R-wave progress ion, early transitionBorderline prolonged QT intervalLab results reviewed.EKG: Normal sinus rhythm at a rate of 90 BPM. LAFB present. Interpreted by Maciej Lim MD Radiology:CT Results (Last 48 hours) 02/15/[address] ABD PELV W CONT Final result Impression:IMPRESSION:1. Cholelithiasis now with findings indicat nelson of cholecystitis.Correlate with ultrasound.2. No evidence of small bowel obstruction and resolution ofpreviously noted ascites.3. Sigmoid diverticulosis without evidence of diverticulitis.Stable findings as noted above.One or more of t he following dose reduction techniques were used:automated exposure control, adjustm ent of the mA and/or kVaccording to patient size, use of iterative reconstructivetec hnique.THIS DOCUMENT HAS BEEN ELECTRONICALLY SIGNEDMariver Dubose MD 9 01:33 ESTM.D. Please call Imaging [employer] Operator [phone] withquestions.T his report was electronically signed by:Karissa Dubose MD 02/15/2019 01:34 AM Narrative: Referring Physician: MACIEJ Enriquez Name: VERITO MILLIGAN IS A FINAL REPORT FROM IMAGING ON CALLDATE OF SERVICE: 2019-02-15 00:44:25 IMAGES: [id number]: CT ABD PELVIS WTECHNIQUE: Helical axial imaging from above the dom es ofdiaphragms through the pubic symphysis following administrationof contrast oral ly and 95 cc of Isovue-300 intravenously.Sagittal and coronal recon structions were obtained.HISTORY: Abdominal pain. History of SBO.COMPARISON: CT abdo men/pelvis of 01/02/2019.FINDINGS:Volume dependent atelectatic changes are again seen at the imagedlung bases. The imaged heart remains normal in size and noperic ardial effusion is seen.The liver measures 18 cm in length and remains mildly hypodens e.The spleen, pancreas, and adrenals remain unremarkable.The gallbladder is more dis tended on the current exam and thereare again multiple calculi seen. There is now josefina cholecysticfluid seen with minimal pericholecystic haziness and thesefindin gs were not present on the prior exam.Normal cortical enhancement is again seen in nabeel th kidneys.Bilateral renal cysts, largest in the left kidney in the upperpole and the largest in the right kidney in the peripelvicmidpole remains stable. No sallie al or ureteral calculi are seen andno hydronephrosis is noted. The urinary loco dder is unremarkable.No bowel obstruction is seen on the current exam. The appendixre brooks normal in caliber without signs of appendicitis.Diverticulosis is again not ed of the sigmoid colon withoutevidence of diverticulitis.The abdominal aorta remai ns normal in caliber. Mildatherosclerotic calcifications are again seen in the aor toiliacsystem. No definite lymphadenopathy is seen. No ascites is noted.The previously seen perihepatic and pelvic ascites has resolved.The uterus remains anteverted. No abnormal adnexal masses areseen.Calcified injection granulomas again seen in the b uttocks.Degenerative changes again seen in the imaged spine withdextroscoliosis aga in noted of the lumbar spine. No acute osseouschanges are noted. A transitional vertebra is noted at thelumbosacral junction and this appears to represent a lumbariz edfirst sacral segment.Radiology interpretation reviewed by Maciej Lim MD<EMERGENCY DEPARTMENT CASE SUMMARY>Impression/Differential Diagnosi s:Verito Velasco is a 53 y.o. Female who present with same abdominal pain asprior small bow obstruction. Will get labs, EKG, chest X ray, CT of abdomenWith contrast. ED Course:53 y.o. female presented to the ED c/o waxing and waning abdominal pain and episodes of vomiting. Order EKG, labs, abdominal CT, urinalysis. Give zofran an dfentanyl.The patient received a medication while in the Emergency Department which canpotentially cause sedation. Prior to receipt of that medication, the patient waswarned of the potential side effects including, but not limited to, drowsines s,dizziness, loss of balance and confusion. The patient also was advised not todrive a vehicle, operate machinery, or participate in any activities which couldpotentially result in injury (i.e., standing on a ladder or riding a bicycle)for 24 hours followi ng receipt of medication. The patient was advised she shouldnot drive home. Should discharge be indicated today, she will need to arrange aride home.12:35 AM The patie nt complains of current pain. Will give IV dilaudid.12:38 PM give dilaudid1:38 AM C T results are consistent with cholecystitis. Will get ultrasound1:39 AM Order abdomin al ultrasound3:54 AM The patient developed a pruritic red rash from the dilaudid3:54 AM give benadryl3:57 AM The ultra sound shows galstones. Will call surgery .Labs and r adiology results reviewed.4:38 AM Case presentation and findings discussed with [facility]leg[facility] who said the findings are not consistent with cholecy stitis; however.Because the patient received 2 injections for pain, the patient will be admittedto medicine and he will see him in the morning.6:29 AM Case presentation an d findings discussed with Dr. Swift (hospitalist)who agrees to admit the pat ientPatient was reassessed prior to disposition. Discussed results, diagnosi s andtreatment plan. Patient's questions were answered. Patient agrees with plan toadm it.Final Impression/Diagnosis:Encounter Diagnoses ICD-10-CM ICD-9-CM1. Acute ch olecystitis K81.0 575.0Patient condition at time of disposition: stableI have review ed the following home medications:Prior to Admission medicationsMedication Sig Star t Date End Date Taking? Authorizing Providercanagliflozin (INVOKANA PO) Take by mouth. Yes Other, Phys, MDatorvastatin (LIPITOR) 10 mg tablet Take 10 mg by shirley th daily. Provider,Candismetoprolol (LOPRESSOR) 50 mg tablet Take 100 mg by mouth daily. Indications:HYPERTENSION Provider, CandisOTHER Take by mouth daily. Vitamin D, Calcium, fiber, Vitamin B12 (all OTC)Provider, Thomas Mays MD I, Radha yL, am serving as a scribe to document services personallype rformed by Maciej Lim MD based on my observation and the provider'sstatements to me.I, Maciej Lim MD, attest that the person(s) noted above, acting as myscrib e(s) noted above, has observed my performance of the services and hasdocumented them i n accordance with my direction. I have personally reviewed theabove information and have ordered and reviewed the diagnostic studies, unlessotherwise noted. Name Value Range Interpretation Code Description Data Gissell rce(s) Supporting Document(s ) ID Date Data Source [id number] 02/15/2019 03:32:[address] [facility] To [place] via litter Name Value Range Interpretation Code Description Data Gissell rce(s) Supporting Document(s ) ID Date Data Source [id number] 02/15/2019 01:34:[address] [facility] Referring Physician: MACIEJ Enriquez Name: VERITO OCAMPO IS A FINAL REPORT FROM IMAGING ON CALLDATE OF SERVI CE: 2019-02-15 00:44:25IMAGES: [id number]: CT ABD PELVIS WTECHNIQUE: Helical axial patrica ging from above the domes ofdiaphragms through the pubic symphysis following ad ministrationof contrast orally and 95 cc of Isovue-300 intravenously.Sagittal and co angel reconstructions were obtained.HISTORY: Abdominal pain. History of SBO.COMPARISO N: CT abdomen/pelvis of 01/02/2019.FINDINGS:Volume dependent atel ectatic changes are again seen at the imagedlung bases. The imaged heart remai ns normal in size and nopericardial effusion is seen.The liver measures 18 cm in vannesa th and remains mildly hypodense.The spleen, pancreas, and adrenals remain unremarkab le.The gallbladder is more distended on the current exam and thereare again multiple calculi seen. There is now pericholecysticfluid seen with minimal p ericholecystic haziness and thesefindings were not present on the prior exam.Marielena l cortical enhancement is again seen in both kidneys.Bilateral renal cysts, largest i n the left kidney in the upperpole and the largest in the right kidney in the perip elvicmidpole remains stable. No renal or ureteral calculi are seen andno hydronep hrosis is noted. The urinary bladder is unremarkable.No bowel obstruction is see n on the current exam. The appendixremains normal in caliber without signs of appen dicitis.Diverticulosis is again noted of the sigmoid colon withoutevidence of diverti culitis.The abdominal aorta remains normal in caliber. Mildatherosclerotic calcificati ons are again seen in the aortoiliacsystem. No definite lymphadenopathy is seen. No ascites is noted.The previously seen perihepatic and pelvic ascites has resol vern.The uterus remains anteverted. No abnormal adnexal masses areseen.Calcifie d injection granulomas again seen in the buttocks.Degenerative changes again seen in the imaged spine withdextroscoliosis again noted of the lumbar spine. No acut e osseouschanges are noted. A transitional vertebra is noted at thelumbosacral junc tion and this appears to represent a lumbarizedfirst sacral segment.IMPRESSIO N: 1. Cholelithiasis now with findings indicative of cholecystitis.Correlate wi th ultrasound.2. No evidence of small bowel obstruction and resolution ofpreviously noted ascites.3. Sigmoid diverticulosis without evidence of diverticulitis.Stabl e findings as noted above.One or more of the following dose reduction techniques were used:automated exposure control, adjustment of the mA and/or kVaccording to patient size, use of iterative reconstructivetechnique.THIS DOCUMENT SHUKLA S BEEN ELECTRONICALLY SIGNEDKarissa Dubose MD02/15/2019 01:33 HOWIE shields call Imaging [employer] Operator [phone]) withquestions.This report was electronically signed by:Karissa Dubose MD 02/15/2019 01:34 AM Sign ing date/time: 02/15/2019 1:34 AMSigned by: KARISSA DUBOSE Name Value Range Interpretation Code Description Data Gissell rce(s) Supporting Document(s ) ID Date Data Source [id number] 02/14/2019 10:47:[address] [facility] Name Value Range Interpretation Description Data Sup porting Code Source(s) Document(s ) Sodium 138 136-145 [facility] - Good [Moles/volume] mmol/L [facility] in Serum or Hospital Plasma Potassium 3.6 3.5-5.1 [facility] - Good [Moles/volume] mmol/L [facility] in Serum or Hospital Plasma Chloride 106 98-107 [facility] [Moles/volume] mmol/L [facility] in Serum or Hospital Plasma Carbon 28 21-32 [facility] - Good dioxide, total mmol/L [facility] [Moles/volume] Hospital in Serum or Plasma Anion gap in 8 mmol/L 10-20 Below low normal [facility] - Go od Serum or [facility] Plasma Hospital Glucose 143 74-106 Above high normal [facility] - Good [Mass/volume] mg/dL [facility] in Serum or Hospital Plasma Urea nitrogen 11 mg/dL 7-18 [facility] - [facility] [Mass/volume] [facility] in Serum or Hospital Plasma Creatinine 0.72 0.40-1.1 [facility] - [facility] [Mass/volume] mg/dL 6 [facility] in Serum or Hospital Plasma Glomerular >60 [facility] - Good filtration [facility] rate/1.73 sq M Hospital predicted among blacks [Volume Rate/Area] in Serum or Plasma by Creatinine-bas ed formula (MDRD) Glomerular >60 [facility] - Good filtration [facility] rate/1.73 sq M Hospital predicted among non-blacks [Volume Rate/Area] in Serum or Plasma by Creatinine-bas ed formula (MDRD) (NOTE)Estimated GFR is calculated using the Modification of Diet in RenalDisease (MDRD) Study equation, reported for both Americans(GFRAA) and non- Americans (GFRNA), and normalized to 1.7 7w3mksf surface area. The physician must decide which value applies tothe patient . The MDRD study equation should only be used inindividuals age 18 or older. It has no t been validated for thefollowing: women, patients with serious comorbid co nditions,or on certain medications, or persons with extremes of body size,muscl e mass, or nutritional status. Calcium [Mass/volume] in 9.2 mg/dL 8.5-10.1 [facility] - Good Serum or Plasma [facility] Bilirubin.total 0.7 mg/dL 0.2-1.0 [facility] Good [Mass/volume] in Serum or [facility] Plasma Alanine aminotransferase 37 U/L 13-61 [facility] - Good [Enzymatic activity/volume] [facility] in Serum or Plasma Aspartate aminotransferase 14 U/L 15-37 Below low normal [facility] - Good [Enzymatic activity/volume] [facility] in Serum or Plasma by With P-5'-P Alkaline phosphatase 96 U/L 45-117 [facility] - G ood [Enzymatic activity/volume] [facility] in Serum or Plasma Protein [Mass/volume] in 7.1 g/dL 6.4-8.2 [facility] - Good Serum or Plasma [facility] ital Albumin [Mass/volume] in 3.8 g/dL 3.5-4.7 [facility] - Good Serum or Plasma by [facility] ospital Bromocresol purple (BCP) dye binding method Globulin [Mass/volume] in 3.3 g/dL 1.7-4.7 [facility] - Good Serum by calculation Albumin/Globulin [Mass 1.1 0.7-2.8 [facility] - Good Ratio] in Serum or Plasma [facility] ID Date Data Source [id number] 02/14/2019 10:47:27 PM [facility]T [facility] Name Value Range Interpretation Code Description Data Gissell rce(s) Supporting Document(s ) Lipase 74 U/L 73-393 [facility] [Enzymatic [facility] activity/vo Hospital lume] in Serum or Plasma ID Date Data Source [id number] 02/14/2019 10:37:14 PM EDT [facility] Name Value Range Interpretation Description Data Sup porting Code Source(s) Document(s ) Leukocytes 9.8 K/uL 4.8-10.6 [facility] - [#/volume] in Good Blood by [facility] Erythrocytes 4.57 4.20-5.4 [facility] - [#/volume] in M/uL 0 Good Blood by [facility] Hemoglobin 14.9 12.0-16. [facility] - [Mass/volume] in g/dL 0 Good Blood Hematocrit 43.6 % 36.0-47. [facility] - [Volume 0 Good Fraction] of [facility] Blood by Hospital Automated count Erythrocyte mean 95.4 FL 81.0-94. Above high normal [facility] - corpuscular 0 Good volume [Entitic [facility] volume] by Hospital Automated count Erythrocyte mean 32.6 PG 27.0-35. [facility] - corpuscular 0 Good hemoglobin [facility] [Entitic mass] Hospital by Automated count Erythrocyte mean 34.2 30.7-37. [facility] - corpuscular g/dL 3 Good hemoglobin [facility] concentration Hospital [Mass/volume] by Automated count Erythrocyte 12.8 % 11.5-14. [facility] - distribution 0 Good width [Ratio] by [facility] Automated count Hospital Platelets 188 K/uL 130-400 [facility] - [#/volume] in [facility] Blood by [facility] Automated count Hospital Platelet mean 10.9 FL 9.2-11.8 [facility] - volume [Entitic Good volume] in [facility] by Automated Hospital count Segmented 72 % 48.0-72. [facility] - neutrophils/100 0 Good leukocytes in [facility] Lymphocytes/100 18 % 18.0-40. [facility] - leukocytes in 0 [facility] Monocytes/100 8 % 2.0-12.0 [facility] - leukocytes in [facility] Eosinophils/100 2 % 0.0-7.0 [facility] - leukocytes in [facility] Basophils/100 0 % 0.0-3.0 [facility] - leukocytes in [facility] Segmented 7.0 K/UL 1.5-6.6 Above high normal [facility] - neutrophils Good [#/volume] in [facility] Lymphocytes 1.8 K/UL 1.5-3.5 [facility] - [#/volume] in [facility] Monocytes 0.8 K/UL 0.0-1.0 [facility] - [#/volume] in [facility] Eosinophils 0.2 K/UL 0.0-0.7 [facility] - [#/volume] in [facility] Basophils 0.0 K/UL 0.0-0.1 [facility] - [#/volume] in [facility] Differential [facility] - cell count Good method - Blood Immature 0 % 0.0-2.0 [facility] - granulocytes/100 Good leukocytes in [facility] Blood by Hospital Automated count ID Date Data Source [id number] 02/14/2019 10:36:22 PM EDT [facility] - [facility] Name Value Range Interpretation Description Data Sup porting Code Source(s) Document(s ) Color of Urine YEL [facility] - [facility] Appearance of CLEAR Abnormal (applies [facility] - Urine to non-numeric Good results) Specific gravity 1.021 1.003-1. [facility] - of Urine by 030 Good Refractometry pH of Urine by 6.0 4.6-8.0 [facility] - Test strip [facility] Protein NEG [facility] - [Mass/volume] in Good Urine by [facility] Glucose NEG [facility] - [Mass/volume] in Good Urine by [facility] Automated test [facility] strip Ketones 5 mg/dL NEG Abnormal (applies [facility] - [Presence] in to non-numeric Good Urine by results) [facility] test [facility] strip Bilirubin.total NEG [facility] - [Presence] in Good Urine Hemoglobin NEG [facility] - [Presence] in Good Urine by [facility] Urobilinogen 0.2 0.2-1.0 [facility] - [Presence] in EU/dL Good Urine by [facility] Automated test Hospital strip Nitrite NEG [facility] - [Presence] in Good Urine by [facility] Automated test Hospital strip Leukocyte NEG [facility] - esterase Good [Presence] in [facility] Urine by Hospital Automated test strip Leukocytes 0-5 [facility] - [Presence] in Good Urine sediment [facility] by [facility] microscopy Erythrocytes 0-3 [facility] - [#/area] in Good Urine sediment [facility] by [facility] high power field Epithelial cells 0-10 [facility] - [#/area] in Good Urine sediment [facility] by [facility] high power field Bacteria NONE [facility] - [Presence] in Good Urine sediment [facility] by [facility] microscopy Casts [Presence] NONE Abnormal (applies [facility] - in Urine to non-numeric Good sediment by results) [facility] HYALINE Crystals [Presence] in Urine sediment by NONE [facility] - [facility] Light microscopy ID Date Data Source [id number] 01/23/2019 04:12:[address] [facility] Twenty-One Day TOCHow are you feeling si nce my last call to you?betterDid you attend your follow up appointment with your MD yet?YES PCPDid your doctor change any of your Rxs at your visit? (only if they shukla d avisit)?YES She takes invokana for DMAre you still taking all your medications?YE SAre you still receiving services that were part of your discharge plan?N/ARx: SBO.D enies fever or abdominal pain. Normal voiding and BM's (takes MOM).Tolerating a low ca rb diet- blood sugars 97-105. No further complaints at thistimeCompleted Medicaid paperwork Awaiting insurance Name Value Range Interpretation Code Description Data Gissell rce(s) Supporting Document(s ) ID Date Data Source [id number] 01/20/2019 12:34:[address] [facility] Discharge SummaryPatient: Verito Hickman nko Sex: female DOA: 01/02/2019Age: 53 y.o. LOS: LOS: 4 days PCP: Samantha Carter MDTreatment Team: [email or web address] Date: 01/06/2019Disposition: home settingAdmission Diagnoses: SBO (small b owel obstruction) ([facility]) [K56.609]Discharge Diagnoses:53 female with hx DM, HTN pres ented with diffuse abd pain, n, v 1. Possible SBO- s/p removal NGT on 01/05 (placed on 01/02/19). Pt tolerated GIsoft lunch without n/v abd pain. Cli nically stable on d/c. outpt GI f/u2. HTN- cont metoprolol3. DM- fsbs- resume Gluco phage in am4. Chest pain- ce neg. outpt f/u with cardio for possible stress test5, d yslipidemia-cont lipitor Code Status- Full CodeDischarge Condition: GoodHospital Co urse: see aboveCT abd/pelvis- done 01/02/19- . Findings consistent with small bowelobst ruction-without transition thedistal portion-no free air identified though th ere is a small amount of freefluid within the abdomen and pelvis.Cardio evaluated pt f or CP suggestive on angina with no ECG changes of ischemia.Pt to have outpt str ess test.Consults: Cardiology and General SurgerySignificant Diagnostic Studies: s ee aboveDischarge Medications: Cannot display discharge medications since this patientis not currently admitted.Discharge Medication List as of 01/06/2019 5:57 PM CONTINUE these medications which have NOT CHANGED Detailsatorvastatin (LIPITOR) 10 mg tablet Take 10 mg by mouth daily., Historical Medmetformin (GLUCOPHAGE) 500 mg tablet Take 500 mg by mouth daily., Historical Medmetoprolol (LOPRESSOR) 50 mg tablet Take 100 mg by mouth daily. Indications:HYPERTENSION, Historical Med OTHER Take by mouth daily. Vitamin D, Calcium, fiber, Vitamin B12 (all OTC),Hi storical MedActivity: Activity as toleratedDiet: GI SoftCode Status: FullF ollow-up: Cardiology in 1 week PCP in 5-7 daysTime involved in d/c process: 30-40 minutes Name Value Range Interpretation Code Description Data [facility] rce(s) Supporting Document(s ) ID Date Data Source [id number] 01/13/2019 05:52:[address] [facility] RICHA call #7Attempted to telephone toshia weston [phone]. Received VM message. Left message.Call to [phone] (Emergency contact: Baltazar: francy. Received VM message.Left message. Name Value Range Interpretation Code Description Data [facility] Supporting Document(s ) ID Date Data Source [id number] 01/09/2019 03:06:[address] [facility] Progress NotePatient: Verito Velasco Sex: female DOA: 01/02/2019Date of : 1965 Age: 53 y.o. LOS: LOS: 4 daysSubjective:Pt seen on 3N. No CPToler ated clears for breakfast and GI Soft for lunch without n,v, abd pain.+GasObjectiv e:Visit VitalsBP 145/88 (BP 1 Location: Left arm, BP Patient Position: Sitting)Pulse 69Temp 97.9 F (36.6 C)Resp 18Ht 5' 2" (1.575 m)Wt 90.7 kg (200 lb)SpO2 97%BMI 36.58 kg/m Physical Exam:Physical Exam:General: Alert, cooperative, no di stress, appears stated age.Eyes: Conjunctivae/corneas clear. PERRL, EOMs intact.Nose: Septum midline. No drainage.Mouth/Throat: Lips, mucosa, and tongue normal. Teeth and gums normal.Neck: Supple, symmetrical, trachea midline, no carotid bruit and no JVD.Back: No CVA tenderness.Lungs: Fair a/e bilaterally .Heart: Regular rate and rhythm, S1, S2 normal.Abdomen: Soft, non-tender. Vanessa l sounds normal.Extremities: Extremities normal, atraumatic, no cyanosis or edema .Pulses: 2+ and symmetric all extremities.Skin: Skin color, texture, t urgor normal.Neurologic: sensation throughout.Intake and Output:Current Sindhu ft: No intake/output data recorded.Last three shifts: 01/07 1901 - 01/09 0700In : 772.5 [I.V.:772.5]Out: -Lab/Data Reviewed:CMP: No results found for: NA, K, CL, CO2, AGAP, GLU, BUN, CREA, GFRAA, GFRNA,CA, MG, PHOS, ALB, TBIL, TP, ALB, GLOB, AGRAT, SGOT, ALT, GPTCBC: No results found for: WBC, HGB, HGBEXT, HCT, HCTEXT , PLT, PLTEXT, HGBEXT,HCTEXT, PLTEXTCOAGS: No results found for: APTT, PTP, INRLiver P jessie: No results found for: ALB, CBIL, TBIL, TP, GLOB, AGRAT, SGOT,ASTPOC, ALTPOC, AL T, GPT, APMedications ReviewedAssessment/Plan53 female with hx DM, HTN presented with diffuse abd pain, n, v1. Possible SBO- s/p removal NGT. Pt to lerated GI soft lunch. Clinically stable. outpt GI f/u2. HTN- cont metoprolol3. DM - fsbs- resume Glucophage in am4. Chest pain- ce neg. outpt f/u with cardio for possib le stress test5, dyslipidemia-cont lipitorCode Status- Full Code Name Value Range Interpretation Code Description Data Gissell rce(s) Supporting Document(s ) ID Date Data Source [id number] 01/07/2019 11:50:[address] [facility] Transitions of Care Call Completed. All follow up questions answered.Understands medications and discharge instructions.H ow are you feeling since being discharged from the hospital?betterHave you made yo ur follow-up appointment with your physician yet?YES Will see PCP 12/20/18 1:40 pmHave you filled your Rx yet?YES Has all medicationsDo you have someone close to you who can assist you if you need help?YES Resides with granddaughterDid you receiv e any services since you have been home that were part of yourdischarge plan?N/ADo yo u feel well educated on the d/c plan items that you are responsible for?YESRx: SBO. Denies fever, SOB, chest and abdominal pain- feels better but isnervous about having a BM - States she had a BM at [facility] but not since she hasbeen home (discharged yeste rday). She took an organic fiber powder last nightand this am and increased her fiber in her diet. . Advised her to speak with herPCP today for alternate means of a nabeel wel supplement - she is agreeable.Tolerating a low salt (hx:HTN) and low carb diet: n o n/vDid not check her blood sugar this am - states she will ask her pcp forprescript ion for more test strips for her blood sugar machine this afternoon.Ambulates indepen dently. (mobile number given) Name Value Range Interpretation Code Description Data Gissell rce(s) Supporting Document(s ) ID Date Data Source [id number] 01/06/2019 04:29:18 PM EDT [facility] Name Value Range Interpretation Description Data Sup porting Code Source(s) Document(s ) Glucose 154 MG/DL 65-110 Above high normal [facility] - Good [Mass/volume] [facility] in Blood by Hospital Automated test strip ID Date Data Source [id number] 01/06/2019 03:49:[address] [facility] Problem: Patient Education: Go to Patisultana t Education ActivityGoal: Patient/Family EducationOutcome: Resolved/MetProblem: U nstable angina/NSTEMI: Day of Admission/Day 1Goal: Off Pathway (Use only if patient is Off Pathway)Outcome: Resolved/MetGoal: Activity/SafetyOutcome: Resolved/MetGoal : Consults, if orderedOutcome: Resolved/MetGoal: Diagnostic Test/Proced uresOutcome: Resolved/MetGoal: Nutrition/DietOutcome: Resolved/MetGoal: Discharge PlanningOutcome: Resolved/MetGoal: MedicationsOutcome: Resolved/MetGoal: Re spiratoryOutcome: Resolved/MetGoal: Treatments/Interventions/ProceduresOutco me: Resolved/MetGoal: PsychosocialOutcome: Resolved/MetGoal: *Hemodynamically stabl eOutcome: Resolved/MetGoal: *Optimal pain control at patient's stated goalOutcome: Resolved/MetGoal: *Lungs clear or at baselineOutcome: Resolved/MetProblem: Pa inGoal: *Control of PainOutcome: Resolved/MetGoal: *PALLIATIVE CARE: All eviation of PainOutcome: Resolved/MetProblem: Patient Education: Go to Patient Educati on ActivityGoal: Patient/Family EducationOutcome: Resolved/MetProblem: F alls - Risk ofGoal: *Absence of FallsDescriptionDocument Enoch Fall Ris k and appropriate interventions in the flowsheet.Outcome: Resolved/MetNote:Fall Risk Interventions:Mobility Interventions: OT consult for ADLs, PT Consult for mobi lity concerns,Strengthening exercises (ROM-active/passive)Medication Intervent ions: Evaluate medications/consider consulting pharmacy,Patient to call befo re getting OOB, Teach patient to arise slowlyElimination Interventions: Call li ght in reach, Toilet paper/wipes in reach,Toileting schedule/hourly rounds Name Value Range Interpretation Code Description Data Gissell rce(s) Supporting Document(s ) ID Date Data Source [id number] 01/06/2019 03:30:[address] [facility] Care Management InterventionsMode of Tra nsport at Discharge: SelfTransition of Care Consult (CM Consult): Discharge Planning Physical Therapy Consult: NoCurrent Support Network: OtherConfirm Follow Up Transpor t: SelfPlan discussed with Pt/Family/Caregiver: YesFreedom of Choic e Offered: YesVeteran Resource Information Provided?: NoDischarge LocationDischarge Placement: HomePt discharging to home today, no needs. Grand-daughter to transport pt home fordischarge at 4 pm. Name Value Range Interpretation Code Description Data Gissell rce(s) Supporting Document(s ) ID Date Data Source [id number] 01/06/2019 12:26:08 PM EDT [facility] Name Value Range Interpretation Description Data Sup porting Code Source(s) Document(s ) Glucose 109 MG/DL 65-110 [facility] [Mass/volume] [facility] in Blood by Hospital Automated test strip ID Date Data Source [id number] 01/06/2019 09:54:[address] [facility] Cardiology:General:awake, feels betterRO S:denied chest pain, abd pain. The chest pain resolved after removal of NGtube yesterd ayVisit VitalsBP 151/90 (BP 1 Location: Right arm, BP Patient Position: At rest)Pulse 74Temp 97.3 F (36.3 C)Resp 18Ht 5' 2" (1.575 m)Wt 90.7 kg (200 lb)SpO2 96%BMI 36.58 kg/m Neck:no JVDLung:ClearHeart:nl S1, S2Abd:softExt:no edemaRecent Results (fr om the past 12 hour(s))CBC WITH AUTOMATED DIFF Collection Time: 01/06/19 4:01 AMR esult Value Ref Range WBC 5.9 4.8 - 10.6 K/uL RBC 4.06 (L) 4.20 - 5.40 M/uL HGB 13.0 1 2.0 - 16.0 g/dL HCT 38.1 36.0 - 47.0 % MCV 93.8 81.0 - 94.0 FL MCH 32.0 27.0 - 35.0 PG MCHC 34.1 30.7 - 37.3 g/dL RDW 12.2 11.5 - 14.0 % PLATELET 163 130 - 400 K/uL MPV 10.3 9.2 - 11.8 FL NEUTROPHILS 55 48.0 - 72.0 % LYMPHOCYTES 29 18.0 - 40.0 % MONO CYTES 9 2.0 - 12.0 % EOSINOPHILS 6 0.0 - 7.0 % BASOPHILS 1 0.0 - 3.0 % ABS. NEUTROPHI LS 3.3 1.5 - 6.6 K/UL ABS. LYMPHOCYTES 1.7 1.5 - 3.5 K/UL ABS. MONOCYTES 0.5 0.0 - 1.0 K/UL ABS. EOSINOPHILS 0.4 0.0 - 0.7 K/UL ABS. BASOPHILS 0.0 0.0 - 0.1 K/UL DF AUT OMATED IMMATURE GRANULOCYTES 0 0.0 - 2.0 %METABOLIC PANEL, BASIC Collection Time: 01/06/19 4:01 AMResult Value Ref Range Sodium 141 136 - 145 mmol/L Potassium 3. 4 (L) 3.5 - 5.1 mmol/L Chloride 108 (H) 98 - 107 mmol/L CO2 26 21 - 32 mmol/L Anion g ap 11 10 - 20 mmol/L Glucose 93 74 - 106 mg/dL BUN 9 7 - 18 mg/dL Creatinine 0.48 0.40 - 1.16 mg/dL GFR est AA >60 >60 ml/min/1.73m2 GFR est non-AA >60 >60 ml/ min/1.73m2 Calcium 8.5 8.5 - 10.1 mg/dLGLUCOSE, POC Collection Time: 01/06 7:05 AMResult Value Ref Range Glucose, bedside 109 65 - 110 MG/DLImp:SBO- resol vedChest pain- ? Secondary to cardiac etiology. Pt does have multiple risk fac torsfor CADHTNDMHYPERLIPIDEMIARecommendation:Clara nge to oral beta israel, AECI and start oral statin when able to take POAmbulateF/u i n office for non invasive cardiac w/u after discharge ( unless recurrentchest pain)A enid Leonardo MD01/06/19 Name Value Range Interpretation Code Description Data Gissell rce(s) Supporting Document(s ) ID Date Data Source [id number] 01/06/2019 07:59:52 AM EDT [facility] Bedside and Verbal shift change report didier YANCEY RN (oncoming nurse) Camilla Richter RN(offgoing nurse). Report give n with SBAR, Kardex, Intake/Output, MAR and RecentResults. Name Value Range Interpretation Code Description Data Gissell rce(s) Supporting Document(s ) ID Date Data Source [id number] 01/06/2019 07:21:22 AM EDT [facility] Name Value Range Interpretation Description Data Sup porting Code Source(s) Document(s ) Glucose 109 MG/DL 65-110 [facility] - [Mass/volume] Community in Blood by Hospital Automated test strip ID Date Data Source [id number] 01/06/2019 04:58:19 AM EDT [facility]: Patient Education: Go to Patien t Education ActivityGoal: Patient/Family EducationOutcome: Progressing Towards Go alProblem: Unstable angina/NSTEMI: Day of Admission/Day 1Goal: Off Pathway (Use on ly if patient is Off Pathway)Outcome: Progressing Towards GoalGoal: Activity/S afetyOutcome: Progressing Towards GoalGoal: Consults, if orderedOutcome: Progressing Towards GoalGoal: Diagnostic Test/ProceduresOutcome: Progressing Towa rds GoalGoal: Nutrition/DietOutcome: Progressing Towards GoalGoal: Discharge PlanningOutcome: Progressing Towards GoalGoal: MedicationsOutcome: Progressin g Towards GoalGoal: RespiratoryOutcome: Progressing Towards GoalGoal: Treatments /Interventions/ProceduresOutcome: Progressing Towards GoalGoal: PsychosocialOutcome: P rogressing Towards GoalGoal: *Hemodynamically stableOutcome: Progressing Towards GoalG oal: *Optimal pain control at patient's stated goalOutcome: Progressing Towards GoalGoal: *Lungs clear or at baselineOutcome: Progressing Towards GoalProblem: PainGoa l: *Control of PainOutcome: Progressing Towards GoalGoal: *PALLIATIVE CARE: All eviation of PainOutcome: Progressing Towards GoalProblem: Patient Education: Go to Pa tient Education ActivityGoal: Patient/Family EducationOutcome: Progressing Towards Go alProblem: Falls - Risk ofGoal: *Absence of FallsDescriptionDocument Enoch Fall Ris k and appropriate interventions in the flowsheet.Outcome: Progressing Towards G oalNote:Fall Risk Interventions:Medication Interventions: Evaluate medications/cons ider consulting pharmacy,Patient to call before getting OOB, Teach patient to felicia campoverdeElimination Interventions: Call light in reach, Patient to call for help withtoileting needs, Toilet paper/wipes in reach, Toileting schedule/hourly roundsP roblem: Patient Education: Go to Patient Education ActivityGoal: Patient/Family E ducationOutcome: Progressing Towards GoalProblem: Small Bowel Obstruction: Da y 1Goal: Off Pathway (Use only if patient is Off Pathway)Outcome: Progressing Towards GoalGoal: Activity/SafetyOutcome: Progressing Towards GoalGoal: Consults, if orderedOutcome: Progressing Towards GoalGoal: Diagnostic Test/ProceduresOutc ome: Progressing Towards GoalGoal: Nutrition/DietOutcome: Progressing Towar ds GoalGoal: MedicationsOutcome: Progressing Towards GoalGoal: RespiratoryOutcome: Pr ogressing Towards GoalGoal: Treatments/Interventions/ProceduresOutco me: Progressing Towards GoalGoal: PsychosocialOutcome: Progressing Towards GoalGoal: *Optimal pain control at patient's stated goalOutcome: Progressing Towards GoalGoal: *Adequate urinary output (equal to or greater than 30 milliliters/hour)Outc ome: Progressing Towards GoalGoal: *Hemodynamically stableOutcome: Progress ing Towards GoalGoal: *Demonstrates progressive activityOutcome: Progressing Towards GoalGoal: *Absence of nausea/vomitingOutcome: Progressing Towa rds Goal Name Value Range Interpretation Code Description Data Gissell rce(s) Supporting Document(s ) ID Date Data Source [id number] 01/06/2019 04:48:35 AM EDT [facility] Name Value Range Interpretation Description Data Sup porting Code Source(s) Document(s ) Sodium 141 136-145 [facility] - [Moles/volume] mmol/L Community in Serum or Hospital Plasma Potassium 3.4 3.5-5.1 Below low normal [facility] - [Moles/volume] mmol/L Community in Serum or Hospital Plasma Chloride 108 98-107 Above high normal [facility] - [Moles/volume] mmol/L Community in Serum or Hospital Plasma Carbon 26 21-32 [facility] - dioxide, total mmol/L Community [Moles/volume] Hospital in Serum or Plasma Anion gap in 11 10-20 [facility] - Serum or mmol/L Community Plasma Hospital Glucose 93 mg/dL 74-106 [facility] - [Mass/volume] Community in Serum or Hospital Plasma Urea nitrogen 9 mg/dL 7-18 [facility] - [Mass/volume] Community in Serum or Hospital Plasma Creatinine 0.48 0.40-1.1 [facility] - [Mass/volume] mg/dL 6 Community in Serum or Hospital Plasma Glomerular >60 [facility] - filtration Community rate/1.73 sq M Hospital predicted among blacks [Volume Rate/Area] in Serum or Plasma by Creatinine-bas ed formula (MDRD) Glomerular >60 [facility] - filtration Community rate/1.73 sq M Hospital predicted among non-blacks [Volume Rate/Area] in Serum or Plasma by Creatinine-bas ed formula (MDRD) Calcium 8.5 8.5-10.1 [facility] - [Mass/volume] mg/dL Community in Serum or Hospital Plasma ID Date Data Source [id number] 01/06/2019 04:33:37 AM EDT [facility] Name Value Range Interpretation Description Data Sup porting Code Source(s) Document(s ) Leukocytes 5.9 K/uL 4.8-10.6 [facility] - [#/volume] in [facility] Blood by Hospital Automated count Erythrocytes 4.06 4.20-5.4 Below low normal [facility] - [#/volume] in M/uL 0 [facility] Blood by Hospital Automated count Hemoglobin 13.0 12.0-16. [facility] - [Mass/volume] in g/dL 0 [facility] Hematocrit 38.1 % 36.0-47. [facility] - [Volume 0 Community Fraction] of Hospital Blood by Automated count Erythrocyte mean 93.8 FL 81.0-94. [facility] - corpuscular 0 Community volume [Entitic Hospital volume] by Automated count Erythrocyte mean 32.0 PG 27.0-35. [facility] - corpuscular 0 [facility] hemoglobin Hospital [Entitic mass] by Automated count Erythrocyte mean 34.1 30.7-37. [facility] - corpuscular g/dL 3 [facility] hemoglobin Hospital concentration [Mass/volume] by Automated count Erythrocyte 12.2 % 11.5-14. [facility] - distribution 0 Community width [Ratio] by Hospital Automated count Platelets 163 K/uL 130-400 [facility] - [#/volume] in Community Blood by Hospital Automated count Platelet mean 10.3 FL 9.2-11.8 [facility] - volume [Entitic Community volume] in Blood Hospital by Automated count Segmented 55 % 48.0-72. [facility] - neutrophils/100 0 Community leukocytes in Hospital Blood Lymphocytes/100 29 % 18.0-40. [facility] - leukocytes in 0 [facility] Blood Hospital Monocytes/100 9 % 2.0-12.0 [facility] - leukocytes in [facility] Blood Hospital Eosinophils/100 6 % 0.0-7.0 [facility] - leukocytes in [facility] Blood Hospital Basophils/100 1 % 0.0-3.0 [facility] - leukocytes in [facility] Segmented 3.3 K/UL 1.5-6.6 [facility] - neutrophils Community [#/volume] in Hospital Blood Lymphocytes 1.7 K/UL 1.5-3.5 [facility] - [#/volume] in [facility] Monocytes 0.5 K/UL 0.0-1.0 [facility] - [#/volume] in [facility] Eosinophils 0.4 K/UL 0.0-0.7 [facility] - [#/volume] in [facility] Basophils 0.0 K/UL 0.0-0.1 [facility] - [#/volume] in [facility] Differential [facility] - cell count [facility] Immature 0 % 0.0-2.0 [facility] - granulocytes/100 Community leukocytes in Hospital Blood by Automated count ID Date Data Source [id number] 01/05/2019 08:54:27 PM EDT [facility] Name Value Range Interpretation Description Data Sup porting Code Source(s) Document(s ) Glucose 95 MG/DL 65-110 [facility] - [Mass/volume] Community in Blood by [facility] Automated test strip ID Date Data Source [id number] 01/05/2019 07:35:53 PM EDT [facility] Bedside and Verbal shift change report didier clayton (oncoming nurse) Evie Pandey RN(offgoing nurse). Report giv en with SBAR, Kardex, Intake/Output, MAR and RecentResults. Name Value Range Interpretation Code Description Data Gissell rce(s) Supporting Document(s ) ID Date Data Source [id number] 01/05/2019 06:43:[address] [facility] N/g out by surgeon Remains NPO few ice c hips. Denies nausea. C/lo sore throat Nonausea vomiting IV meds for b/p contin ue IV site reddened and changed Facialrash as pt states "I get this a lot" Ambulation encouraged Name Value Range Interpretation Code Description Data Gissell rce(s) Supporting Document(s ) ID Date Data Source [id number] 01/05/2019 04:50:53 PM EDT [facility] Name Value Range Interpretation Description Data Sup porting Code Source(s) Document(s ) Glucose 87 MG/DL 65-110 [facility] - [Mass/volume] Community in Blood by [facility] Automated test strip ID Date Data Source [id number] 01/05/2019 02:57:[address] [facility] PROCEDURE: XR ABD (KUB)History: Small b owel obstruction.Prior: X-ray 01/04/2018.TECHNIQUE: Single supine view was obtainedFindings: There are dilated small bowel loops. Contrast is seen within the lefthemicolon and rectum. An NG tube extends into the gastric lumen.. No softtissuema sses or organomegaly is seen. There are no abnormal calcifications. A smallamount o f stool is seen within the colon and rectum. The bony structures areintact.IMPRESSION :Small bowel ileus or obstruction unchanged since 01/04/2018Signing date/time: 019 2:57 PMSigned by: VIKRAM HENRY Name Value Range Interpretation Code Description Data Gissell rce(s) Supporting Document(s ) ID Date Data Source [id number] 01/05/2019 02:06:[address] [facility] General Daily Progress NotePatient: Brayan Velasco of : 1965 Age: 53 y.o.Admit Date: 01/023138}Subjective:Patient is feeling better, no chest or abdominal pain.Curre nt Facility-Administered MedicationsMedication Dose Route Frequen cy sucralfate (CARAFATE) tablet 1 g 1 g Oral AC&HS enalaprilat (VASOTEC) inject ion 1.25 mg 1.25 mg IntraVENous Q8H benzocaine (HURRICAINE) 20 % spray Muc ous Membrane PRN metoprolol (LOPRESSOR) injection 5 mg 5 mg IntraVENous Q6H as pirin chewable tablet 81 mg 81 mg Per NG tube DAILY atorvastatin (LIPITOR) table t 20 mg 20 mg Per NG tube QHS acetaminophen (TYLENOL) tablet 650 mg 650 mg Oral Q4H PRN HYDROcodone-acetaminophen (NORCO) 5-325 mg per tablet 1 Tab 1 Tab Oral Q4HPRN HYDROmorphone (PF) (DILAUDID) injection 1 mg 1 mg IntraVENous Q4H PRN diphenhydrAMIN E (BENADRYL) capsule 25 mg 25 mg Oral Q4H PRN ondansetron (ZOFRAN) injection 4 mg 4 mg IntraVENous Q4H PRN magnesium hydroxide (MILK OF MAGNESIA) 400 mg/5 mL oral suspension 30 mL 30mL Oral DAILY PRN heparin (porcine) injection 5,000 Units 5,000 Units SubCUTAneous Q8H insulin lispro (HUMALOG) injection SubCUTAneous TIDAC dextrose 40% (GLUTOSE) oral gel 1 Tube 15 g Oral PRN glucagon (GLUCAGEN) injectio n 1 mg 1 mg IntraMUSCular PRN dextrose (D50W) injection syrg 12.5-25 g 25-50 m L IntraVENous PRN 0.9% sodium chloride infusion 100 mL/hr IntraVENous CONTINUO USObjective:Patient Vitals for the past 8 hrs: BP Temp Pulse Resp [id number]/05/19 120 8 (!) 148/95 98 F (36.7 C) 62 18 96 %01/05/19 0802 (!) 135/101 97.2 F (36.2 C) 75 18 94 %01/05 0701 - 01/05 1900In: 1248.3 [I.V.:1248.3]Out: -Physical Exam: General: alert, cooperative, mild distress, appears stated ageNeck: no masses, no J VDLungs: clear to auscultation bilaterallyHeart: S1, S2 normal, systol ic murmur: holosystolic 2/6, low pitch at 2nd leftintercostal spaceAbdomen: Soft prot ruded, no guarding.Extremities: extremities normal, atraumatic, no cyanosis or edema ECG:Normal sinus rhythmLeft axis deviationInferior infarct , age undeterm inedAbnormal ECGData ReviewRecent Results (from the past 24 hour(s))GLUCOSE, POC C ollection Time: 01/04/19 4:25 PMResult Value Ref Range Glucose, bedside 79 65 - 110 M G/DLGLUCOSE, POC Collection Time: 01/04/19 5:18 PMResult Value Ref Range Glucose, b edside 109 65 - 110 MG/DLGLUCOSE, POC Collection Time: 01/04/19 8:56 PMResult Value Ref Range Glucose, bedside 87 65 - 110 MG/DLCBC WITH AUTOMATED DIFF Collection Time: 01/05/19 6:45 AMResult Value Ref Range WBC 7.5 4.8 - 10.6 K/uL RBC 4.09 (L) 4.2 0 - 5.40 M/uL HGB 13.4 12.0 - 16.0 g/dL HCT 38.3 36.0 - 47.0 % MCV 93.6 81.0 - 94.0 FL MCH 32.8 27.0 - 35.0 PG MCHC 35.0 30.7 - 37.3 g/dL RDW 12.3 11.5 - 14.0 % PLATELE T 154 130 - 400 K/uL MPV 10.6 9.2 - 11.8 FL NEUTROPHILS 73 (H) 48.0 - 72.0 % LYMPHOC YTES 18 18.0 - 40.0 % MONOCYTES 6 2.0 - 12.0 % EOSINOPHILS 3 0.0 - 7.0 % BASOPHILS 0 0.0 - 3.0 % ABS. NEUTROPHILS 5.4 1.5 - 6.6 K/UL ABS. LYMPHOCYTES 1.4 (L) 1.5 - 3.5 K/UL ABS. MONOCYTES 0.5 0.0 - 1.0 K/UL ABS. EOSINOPHILS 0.2 0.0 - 0.7 K/UL ABS. BASO PHILS 0.0 0.0 - 0.1 K/UL DF AUTOMATED IMMATURE GRANULOCYTES 0 0.0 - 2.0 %METAB OLIC PANEL, BASIC Collection Time: 01/05/19 6:45 AMResult Value Ref Range Sodium 137 136 - 145 mmol/L Potassium 3.8 3.5 - 5.1 mmol/L Chloride 103 98 - 107 mmol/L CO2 26 21 - 32 mmol/L Anion gap 11 10 - 20 mmol/L Glucose 76 74 - 106 mg/dL BUN 9 7 - 18 m g/dL Creatinine 0.53 0.40 - 1.16 mg/dL GFR est AA >60 >60 ml/min/1.73m2 GFR est non -AA >60 >60 ml/min/1.73m2 Calcium 8.5 8.5 - 10.1 mg/dLGLUCOSE, POC Collection Time: 01/05/19 11:33 AMResult Value Ref Range Glucose, bedside 85 65 - 110 MG/DLAssess ment:Active Problems: SBO (small bowel obstruction) ([facility]) (01/02/2019)Hypertensi ve heart disease.DM.Chest pian.Plan:Continue present treatment.Kayla Frias MD Name Value Range Interpretation Code Description Data Gissell rce(s) Supporting Document(s ) ID Date Data Source [id number] 01/05/2019 12:09:[address] [facility] Progress NoteDaily Progress Note: 019Subjective:Patient admitted for SBO (small bowel obstruction) ([facility]) [K56.609]Pt see n earlier this morningPatient continues to c/o chest pressureObjective:VITALS:Visit VitalsBP (!) 135/101 (BP 1 Location: Right arm)Pulse 75Temp 97.2 F (36.2 C)Resp 1 8Ht 5' 2" (1.575 m)Wt 90.7 kg (200 lb)SpO2 94%BMI 36.58 kg/m Temp (24hrs), Av.8 F (36.6 C), Min:97 F (36.1 C), Max:99.2 F (37.3 C)PHYSICAL EXAM:[] Un able to obtain due to []mental status change []sedatedGeneral: Alert, cooperative , no distress, appears stated age.Head: Normocephalic, without obvious abnormali ty, atraumatic.Eyes: Conjunctivae clear, anicteric sclerae. Pupils are equalNose : Nares normal. No drainage or sinus tenderness.Throat: Lips, mucosa, and tongue normal. No ThrushNeck: Supple, symmetrical, no adenopathy, no JVD.Deon gs: Clear to auscultation bilaterally. No Wheezing or Rhonchi. No rales.Chest wall : No tenderness or deformity. No Accessory muscle use.Heart: Regular rate and rhy thm, no murmur, rub or gallop.Abdomen: Soft, non-tender. Not distended. Bowel sounds normal. No massesExtremities: Extremities normal, atraumatic, No cyano sis. No edema. No clubbingSkin: Texture, turgor normal. No rashes or lesions. No t JaundicedLymph nodes: Cervical, supraclavicular normal.Psych: Good insi ght. Not depressed. Not anxious or agitated.Neurologic: EOMs intact. No fac ial asymmetry. No aphasia or slurred speech.Normal strength, Alert and orient ed X 3.Intake and Output:Intake/Output Summary (Last 24 hours) at 01/05/2019 115 7Last data filed at 01/05/2019 0724Gross per 24 hourIntake 2480 mlOutput -Net 2480 ml Data Review:Recent Days:Recent Labs 01/04/1903WB C 7.5 8.7 7.9HGB 13.4 13.4 14.4HCT 38.3 40.1 42.3PLT 154 137 156Recent Labs 01/05/19 0645 01/04/1904NA 137 140 142 136K 3.8 3.6 3.7 4.0CL 103 1 06 108* 101CO2 26 25 27 26GLU 76 89 121* 191*BUN 9 9 13 14CREA 0.53 0.50 0.64 0.7 6CA 8.5 8.4* 8.4* 10.4*ALB -- -- -- 4.4TBILI -- -- -- 1.0SGOT -- -- -- 19ALT -- -- -- 43No results for input(s): PH, PCO2, PO2, HCO3, FIO2 in t he last 72 hours.No results found.Problem List:Problem List as of 01/05/2019 Date R eviewed: 03/09/2014 Codes Class Noted - Resolved SBO (small bowel obstruction) ( HCC) ICD-10-CM: K56.609ICD-9-CM: 560.9 01/02/2019 - Present Trigger finger of le ft hand (Chronic) ICD-10-CM: M65.30ICD-9-CM: 727.03 12/08/2013 - PresentMedications r eviewedCurrent Facility-Administered MedicationsMedication Dose Route Frequen cy sucralfate (CARAFATE) tablet 1 g 1 g Oral AC&HS enalaprilat (VASOTEC) inject ion 1.25 mg 1.25 mg IntraVENous Q8H benzocaine (HURRICAINE) 20 % spray Muc ous Membrane PRN metoprolol (LOPRESSOR) injection 5 mg 5 mg IntraVENous Q6H as pirin chewable tablet 81 mg 81 mg Per NG tube DAILY atorvastatin (LIPITOR) table t 20 mg 20 mg Per NG tube QHS acetaminophen (TYLENOL) tablet 650 mg 650 mg Oral Q4H PRN HYDROcodone-acetaminophen (NORCO) 5-325 mg per tablet 1 Tab 1 Tab Oral Q4HPRN HYDROmorphone (PF) (DILAUDID) injection 1 mg 1 mg IntraVENous Q4H PRN diphenhydrAMIN E (BENADRYL) capsule 25 mg 25 mg Oral Q4H PRN ondansetron (ZOFRAN) injection 4 mg 4 mg IntraVENous Q4H PRN magnesium hydroxide (MILK OF MAGNESIA) 400 mg/5 mL oral suspension 30 mL 30mL Oral DAILY PRN heparin (porcine) injection 5,000 Units 5,000 Units SubCUTAneous Q8H insulin lispro (HUMALOG) injection SubCUTAneous TIDAC dextrose 40% (GLUTOSE) oral gel 1 Tube 15 g Oral PRN glucagon (GLUCAGEN) injectio n 1 mg 1 mg IntraMUSCular PRN dextrose (D50W) injection syrg 12.5-25 g 25-50 m L IntraVENous PRN 0.9% sodium chloride infusion 100 mL/hr IntraVENous CONTINUO US53 y.o. female w/ DM2,HTN,admitted for iffuse abdominal pain onset 3 days agowi th associated diarrhea and vomiting. Patient also c/o mild chest pain.Assessment/Plan :1. resolving SBO versus ileusSurgeon discontinued NGT2.Chest pain-nl trop - p ersistent , recurrent Pt on prophylactic dose of heparin CTA chest - is negativ e for PECardiologist agrees with IV beta israel while pt is NPOEcho for LVEF and wall motion are unremarkablecont iv enalprilatCardiologist may have to perfo rm diagnostic cathDVT Prophylaxis:[] Venodynes[] Lovenox[x] Heparin[] No Love nox or Heparin for risk of bleedingCare Plan discussed with: Patient/Family in detail . Expressed understanding andis in agreement.Christo Cavazos [facility] , Name Value Range Interpretation Code Description Data Gissell rce(s) Supporting Document(s ) ID Date Data Source [id number] 01/05/2019 11:50:22 AM EDT [facility] Surgery Progress NoteNAME: Verito Pereira enkoDOB: 1965MRN: [id number]:Her main complain today is burning pain in throat.Also has substernal discomfort.States that pain i n abdomen is lot betterPassed flatus today but no BMPast Medical History:Diagnosis Date Diabetes (HCC) diet controlled pre-diabetic Hypertension Trigger fing er of left hand 12/08/2013Past Surgical History:Procedure Laterality Date HX OR THOPAEDIC right carpal tunnelNo Known AllergiesVITALS:Visit VitalsBP (!) 135/1 01 (BP 1 Location: Right arm)Pulse 75Temp 97.2 F (36.2 C)Resp 18Ht 5' 2" (1.575 m)Wt 200 lb (90.7 kg)SpO2 94%BMI 36.58 kg/m PHYSICAL EXAM:General: Alert, coopera tive, no distress, appears stated age.Head: Normocephalic, without obvious abnormali ty, atraumatic.Eyes: Conjunctivae clear, anicteric sclerae. Pupils are equalBack : Symmetric, No CVA tenderness.Lungs: Clear to auscultation bilaterally. No W heezing or Rhonchi. No rales.Chest wall: No Accessory muscle use.Heart: Regular ra te and rhythm, no murmur, rub or gallop.Abdomen: Soft, non-tender. Not distended. No massesExtremities: Extremities normal, atraumatic, No cyanosis. No isidro ma. No clubbingPsych: Good insight. Not depressed. Not anxious or agitated.Neur ologic: EOMs intact. No facial asymmetry. No aphasia or slurred speech.Normal strengt h, Alert and oriented X 3.Lab Data Reviewed:CBC w/Diff Recent Labs [id number] 01/04/1904WBC 7.5 8.7 7.9HGB 13.4 13.4 14.4HCT 38.3 40.1 42.3M CV 93.6 97.1* 97.2*PLT 154 137 156GRANS 73* 72 70LYMPH 18 16* 19EOS 3 3 4Chemistry R ecent Labs 01/04/1903GLU 76 89 121*NA 137 140 142 K 3.8 3.6 3.7CL 103 106 108*CO2 26 25 27BUN 9 9 13CREA 0.53 0.50 0.64 Recent Labs 01/04/1903CA 8.5 8.4* 8.4* 10.4*ALB - - -- -- 4.4TBILI -- -- -- 1.0AP -- -- -- 109SGOT -- -- -- 19A LT -- -- -- 43LPSE -- -- -- 60*Coagulation No results for input(s): PTP, INR, APTT in the last 72 hours.No lab exists for component: INREXTIMAGING RESU LTS:No results found.Assessment:53-year-old female admitted with abdominal pain and question of small bowelobstruction versus ileus.Plan:NGT discontinued todayContinu e rest of the managementOOB to walkingThank you for allowing me to participate in is patients care and please callme on [phone] with questions and concerns Signed By: Mark Alegre MD 01/05/2019 11:46 AM Name Value Range Interpretation Code Description Data Gissell rce(s) Supporting Document(s ) ID Date Data Source [id number] 01/05/2019 12:06:28 PM EDT [facility] Name Value Range Interpretation Description Data Sup porting Code Source(s) Document(s ) Glucose 85 MG/DL 65-110 [facility] - [Mass/volume] Community in Blood by [facility] Automated test strip ID Date Data Source [id number] 01/05/2019 10:44:[address] [facility] Abd xray done Name Value Range Interpretation Code Description Data [facility] rce(s) Supporting Document(s ) ID Date Data Source [id number] 01/05/2019 07:23:[address] [facility] Verbal shift change report given to Altagracia Gibbons RN (oncoming nurse) byLexii Padilla RN (offgoing nurse). Report inc luded the following informationSBAR, Kardex, ED Summary, Intake/Output, MAR and Recen t Results. Name Value Range Interpretation Code Description Data Gissell rce(s) Supporting Document(s ) ID Date Data Source [id number] 01/05/2019 07:30:40 AM EDT [facility] Name Value Range Interpretation Description Data Sup porting Code Source(s) Document(s ) Sodium 137 136-145 [facility] - [Moles/volume] mmol/L Community in Serum or Hospital Plasma Potassium 3.8 3.5-5.1 [facility] - [Moles/volume] mmol/L Community in Serum or Hospital Plasma Chloride 103 98-107 [facility] - [Moles/volume] mmol/L Community in Serum or Hospital Plasma Carbon 26 21-32 [facility] - dioxide, total mmol/L Community [Moles/volume] Hospital in Serum or Plasma Anion gap in 11 10-20 [facility] - Serum or mmol/L Community Plasma Hospital Glucose 76 mg/dL 74-106 [facility] - [Mass/volume] Community in Serum or Hospital Plasma Urea nitrogen 9 mg/dL 7-18 [facility] - [Mass/volume] Community in Serum or Hospital Plasma Creatinine 0.53 0.40-1.1 [facility] - [Mass/volume] mg/dL 6 Community in Serum or Hospital Plasma Glomerular >60 [facility] - filtration Community rate/1.73 sq M Hospital predicted among blacks [Volume Rate/Area] in Serum or Plasma by Creatinine-bas ed formula (MDRD) Glomerular >60 [facility] - filtration Community rate/1.73 sq M Hospital predicted among non-blacks [Volume Rate/Area] in Serum or Plasma by Creatinine-bas ed formula (MDRD) Calcium 8.5 8.5-10.1 [facility] - [Mass/volume] mg/dL Community in Serum or Hospital Plasma ID Date Data Source [id number] 01/05/2019 07:28:59 AM EDT [facility] Name Value Range Interpretation Description Data Sup porting Code Source(s) Document(s ) Leukocytes 7.5 K/uL 4.8-10.6 [facility] - [#/volume] in Community Blood by Hospital Automated count Erythrocytes 4.09 4.20-5.4 Below low normal [facility] - [#/volume] in M/uL 0 Community Blood by Hospital Automated count Hemoglobin 13.4 12.0-16. [facility] - [Mass/volume] in g/dL 0 [facility] Blood [facility] Hematocrit 38.3 % 36.0-47. [facility] - [Volume 0 Community Fraction] of Hospital Blood by Automated count Erythrocyte mean 93.6 FL 81.0-94. [facility] - corpuscular 0 Community volume [Entitic Hospital volume] by Automated count Erythrocyte mean 32.8 PG 27.0-35. [facility] - corpuscular 0 [facility] hemoglobin Hospital [Entitic mass] by Automated count Erythrocyte mean 35.0 30.7-37. [facility] - corpuscular g/dL 3 [facility] hemoglobin Hospital concentration [Mass/volume] by Automated count Erythrocyte 12.3 % 11.5-14. [facility] - distribution 0 Community width [Ratio] by Hospital Automated count Platelets 154 K/uL 130-400 [facility] - [#/volume] in Community Blood by Hospital Automated count Platelet mean 10.6 FL 9.2-11.8 [facility] - volume [Entitic Community volume] in Blood Hospital by Automated count Segmented 73 % 48.0-72. Above high normal [facility] - neutrophils/100 0 Community leukocytes in Hospital Blood Lymphocytes/100 18 % 18.0-40. [facility] - leukocytes in 0 [facility] Blood Hospital Monocytes/100 6 % 2.0-12.0 [facility] - leukocytes in [facility] Blood Hospital Eosinophils/100 3 % 0.0-7.0 [facility] - leukocytes in [facility] Basophils/100 0 % 0.0-3.0 [facility] - leukocytes in [facility] Segmented 5.4 K/UL 1.5-6.6 [facility] - neutrophils Community [#/volume] in Hospital Blood Lymphocytes 1.4 K/UL 1.5-3.5 Below low normal [facility] - [#/volume] in [facility] Monocytes 0.5 K/UL 0.0-1.0 [facility] - [#/volume] in [facility] Eosinophils 0.2 K/UL 0.0-0.7 [facility] - [#/volume] in [facility] Basophils 0.0 K/UL 0.0-0.1 [facility] - [#/volume] in [facility] Differential [facility] - cell count [facility] Immature 0 % 0.0-2.0 [facility] - granulocytes/100 Community leukocytes in Hospital Blood by Automated count ID Date Data Source [id number] 01/04/2019 09:17:24 PM EDT [facility] Name Value Range Interpretation Description Data Sup porting Code Source(s) Document(s ) Glucose 87 MG/DL 65-110 [facility] - [Mass/volume] Community in Blood by Hospital Automated test strip ID Date Data Source [id number] 01/04/2019 08:18:[address] [facility] Called by RN for pt with c/o chest press urePatient states it started just prior to admission-feels pressure on chest,exacer bated by movement, short term relief with antacids.Gen: NAD, NGT in place, obeseLu ngs: CTAHeart: S1S2 NSRABD: mildly distended, mild diffuse tendernessA/P: Atypical chest painTroponin initial negative-repeatEKG changes_being followe d by Cardiology SBONGT in placeChest pressure may be gastric in originCarafat e liquid when can tolerateSusan MARCIAL Grady Name Value Range Interpretation Code Description Data Gissell rce(s) Supporting Document(s ) ID Date Data Source [id number] 01/04/2019 07:14:[address] [facility] Bedside and Verbal shift change report didier Shultz Muehler (oncoming nurse)by rosa maria titus (offgoing nurse). Report given with SBAR, Intake/Output, MAR,Recent Results and Med Rec Status. Name Value Range Interpretation Code Description Data [facility] rce(s) Supporting Document(s ) ID Date Data Source [id number] 01/04/2019 05:31:[address] [facility] Problem: Small Bowel Obstruction: Day 1G oal: Activity/SafetyOutcome: Progressing Towards GoalProblem: Small Bowel Obstruc tion: Day 1Goal: Nutrition/DietOutcome: Not Progressing Towards GoalProblem: Small B owel Obstruction: Day 1Goal: RespiratoryOutcome: Progressing Towards Goal Name Value Range Interpretation Code Description Data [facility] rce(s) Supporting Document(s ) ID Date Data Source [id number] 01/04/2019 05:38:32 PM EDT [facility] Name Value Range Interpretation Description Data Sup porting Code Source(s) Document(s ) Glucose 109 MG/DL 65-110 [facility] - [Mass/volume] Community in Blood by [facility] Automated test strip ID Date Data Source [id number] 01/04/2019 04:49:21 PM EDT [facility] Name Value Range Interpretation Description Data Sup porting Code Source(s) Document(s ) Glucose 79 MG/DL 65-110 [facility] - [Mass/volume] Community in Blood by [facility] Automated test strip ID Date Data Source [id number] 01/04/2019 12:14:[address] [facility] General Daily Progress NotePatient: Brayan Velasco of : 1965 Age: 53 y.o.Admit Date: 01/02}Subjective:Patient is feeling better, still have abdominal pain going to the chest.Current Facility-Administered MedicationsMedication Dose Route Frequen cy sucralfate (CARAFATE) tablet 1 g 1 g Oral AC&HS benzocaine (HURRICAINE) 20 % spray Mucous Membrane PRN metoprolol (LOPRESSOR) injection 5 mg 5 mg IntraVE Nous Q6H aspirin chewable tablet 81 mg 81 mg Per NG tube DAILY atorvastatin (LIPI TOR) tablet 20 mg 20 mg Per NG tube QHS acetaminophen (TYLENOL) tablet 650 mg 6 50 mg Oral Q4H PRN HYDROcodone-acetaminophen (NORCO) 5-325 mg per tablet 1 Tab 1 Tab Oral Q4HPRN HYDROmorphone (PF) (DILAUDID) injection 1 mg 1 mg IntraVENous Q4H PRN diphenhydrAMINE (BENADRYL) capsule 25 mg 25 mg Oral Q4H PRN ondansetron (ZOFRAN) injection 4 mg 4 mg IntraVENous Q4H PRN magnesium hydroxide (MILK OF MAGNESIA) 4 00 mg/5 mL oral suspension 30 mL 30mL Oral DAILY PRN heparin (porcine) injection 5 ,000 Units 5,000 Units SubCUTAneous Q8H insulin lispro (HUMALOG) injection Sub CUTAneous TIDAC dextrose 40% (GLUTOSE) oral gel 1 Tube 15 g Oral PRN glucagon (GLU CAGEN) injection 1 mg 1 mg IntraMUSCular PRN dextrose (D50W) injection syrg 12.5-25 g 25-50 mL IntraVENous PRN 0.9% sodium chloride infusion 100 mL/hr IntraVENous CONTINUOUSObjective:Patient Vitals for the past 8 hrs: BP Temp Pulse Resp [id number]/04 1145 130/75 97.5 F (36.4 C) 88 18 96 %01/04/19 0949 - - - - 95 %01/04/19 0748 (!) 164/100 97.3 F (36.3 C) 92 18 93 %01/04/19 0421 (!) 151/92 97.5 F (36.4 C) 92 18 91 %No intake/output data recorded.Physical Exam:General: alert, cooperative, mild distress, appears stated ageNeck: no masses, no JVDLungs: clear to auscultation bilaterallyHeart: S1, S2 normal, systolic murmur: holosystolic 2/ 6, low pitch at 2nd leftintercostal spaceAbdomen: Soft protruded, no guardi ng.Extremities: extremities normal, atraumatic, no cyanosis or edemaECG:Norm al sinus rhythmLeft axis deviationInferior infarct , age undeterminedAbnormal ECGDa ta ReviewRecent Results (from the past 24 hour(s))GLUCOSE, POC Collection Time: 12:19 PMResult Value Ref Range Glucose, bedside 116 (H) 65 - 110 MG/DLE KG, 12 LEAD, INITIAL Collection Time: 01/03/19 2:39 PMResult Value Ref Range Ventricular Rate 93 BPM Atrial Rate 93 BPM P-R Interval 170 ms QRS Duration 90 ms Q -T Interval 364 ms QTC Calculation (Bezet) 452 ms Calculated P [place] 39 degrees Calc ulated R [place] -41 degrees Calculated T [place] 27 degrees Diagnosis Normal sinus rhyth mLeft axis deviationAbnormal ECGWhen compared with ECG of 03-JAN-2019 14:36,ST no long er depressed in Inferior leadsNonspecific T wave abnormality has replaced inverted T waves in InferiorleadsEKG, 12 LEAD, INITIAL Collection Time: 01/03/19 2:41 PMResult Value Ref Range Ventricular Rate 92 BPM Atrial Rate 92 BPM P-R Interval 150 ms Q RS Duration 78 ms Q-T Interval 364 ms QTC Calculation (Bezet) 450 ms Calculated P [place] 36 degrees Calculated R [place] -43 degrees Calculated T [place] -8 degrees Diagnosis Normal sinus rhythmLeft axis deviationInferior infarct , age undeterm inedAbnormal ECGWhen compared with ECG of 02-JAN-2019 11:37,Incomplete right bundl e branch block is no longer presentBorderline criteria for Anterior infarct are no meenu kory presentBorderline criteria for Anterolateral infarct are no longer pres entInferior infarct is now presentTROPONIN I Collection Time: 01/03/19 2:46 PMResult Value Ref Range Troponin-I, Qt. <0.02 0.00 - 0.05 NG/MLGLUCOSE, POC Collection Time: 01/03/19 4:06 PMResult Value Ref Range Glucose, bedside 107 65 - 110 MG/DLGLUCO SE, POC Collection Time: 01/03/19 8:53 PMResult Value Ref Range Glucose, bedsid e 97 65 - 110 MG/DLMETABOLIC PANEL, BASIC Collection Time: 01/04/19 3:22 AMResult Value Ref Range Sodium 140 136 - 145 mmol/L Potassium 3.6 3.5 - 5.1 mmol/L Chloride 106 98 - 107 mmol/L CO2 25 21 - 32 mmol/L Anion gap 12 10 - 20 mmol/L Glucose 89 7 4 - 106 mg/dL BUN 9 7 - 18 mg/dL Creatinine 0.50 0.40 - 1.16 mg/dL GFR est AA >60 >6 0 ml/min/1.73m2 GFR est non-AA >60 >60 ml/min/1.73m2 Calcium 8.4 (L) 8.5 - 10.1 mg/dLCBC WITH AUTOMATED DIFF Collection Time: 01/04/19 3:22 AMResult Value Ref Range WBC 8.7 4.8 - 10.6 K/uL RBC 4.13 (L) 4.20 - 5.40 M/uL HGB 13.4 12.0 - 16.0 g/ dL HCT 40.1 36.0 - 47.0 % MCV 97.1 (H) 81.0 - 94.0 FL MCH 32.4 27.0 - 35.0 PG MCHC 33. 4 30.7 - 37.3 g/dL RDW 12.9 11.5 - 14.0 % PLATELET 137 130 - 400 K/uL MPV 10.7 9.2 - 11.8 FL NEUTROPHILS 72 48.0 - 72.0 % LYMPHOCYTES 16 (L) 18.0 - 40.0 % MONOCYT ES 9 2.0 - 12.0 % EOSINOPHILS 3 0.0 - 7.0 % BASOPHILS 0 0.0 - 3.0 % ABS. NEUTROPHILS 6.3 1.5 - 6.6 K/UL ABS. LYMPHOCYTES 1.4 (L) 1.5 - 3.5 K/UL ABS. MONOCYTES 0.8 0.0 - 1.0 K/UL ABS. EOSINOPHILS 0.3 0.0 - 0.7 K/UL ABS. BASOPHILS 0.0 0.0 - 0.1 K/UL DF AUT OMATED IMMATURE GRANULOCYTES 0 0.0 - 2.0 %TROPONIN I Collection Time: 01/04/19 3 :22 AMResult Value Ref Range Troponin-I, Qt. <0.02 0.00 - 0.05 NG/MLGLUCOSE, POC Shine ection Time: 01/04/19 8:21 AMResult Value Ref Range Glucose, bedside 87 65 - 110 M G/DLGLUCOSE, POC Collection Time: 01/04/19 11:23 AMResult Value Ref Range Glucose, bedside 89 65 - 110 MG/DLAssessment:Active Problems: SBO (small bowel obstruction) ([facility]) (01/02/2019)Hypertensive heart disease.DM.Chest pian.Plan:Enalapril 1.2 5 mg ivss Q8h.Kayla Frias MD Name Value Range Interpretation Code Description Data Gissell rce(s) Supporting Document(s ) ID Date Data Source [id number] 01/04/2019 11:42:01 AM EDT [facility] Progress NoteNAME: Verito Pereira enkoDOB: 1965MRN: [id number]:Being seen for possible partial SBO, small bowel ileusStill has pain in abdomenPassed flatus only once today am.No BM.X ray KUB from today am, showed gas filled small bowel loops, oral contrast seenin left colon.Being worked up for chest pain as well.Past Medical History:Diagno sis Date Diabetes (HCC) diet controlled pre-diabetic Hypertension Trigger fing er of left hand 12/08/2013Past Surgical History:Procedure Laterality Date HX OR THOPAEDIC right carpal tunnelNo Known AllergiesVITALS:Visit VitalsBP (!) 164/1 00 (BP 1 Location: Left arm, BP Patient Position: At rest;Head ofbed elevated (C omment degrees))Pulse 92Temp 97.3 F (36.3 C)Resp 18Ht 5' 2" (1.575 m)Wt 200 lb (90 .7 kg)SpO2 95%BMI 36.58 kg/m PHYSICAL EXAM:General: Alert, cooperative, no distress, appears stated age.Head: Normocephalic, without obvious abnormali ty, atraumatic.Eyes: Conjunctivae clear, anicteric sclerae. Pupils are equalBack : Symmetric, No CVA tenderness.Lungs: Clear to auscultation bilaterally. No W heezing or Rhonchi. No rales.Chest wall: No Accessory muscle use.Heart: Regular ra te and rhythm, no murmur, rub or gallop.Abdomen: Soft, mild generalized tenderness, No guarding or rebound tenderness.Extremities: Extremities norm al, atraumatic, No cyanosis. No edema. No clubbingPsych: Good insight. Not depre ssed. Not anxious or agitated.Neurologic: EOMs intact. No facial asymmetry. No aph warren or slurred speech.Normal strength, Alert and oriented X 3.Lab Data Reviewed:CBC w /Diff Recent Labs 01/04/1904WBC 8.7 7.9 12.8*HGB 13.4 14 .4 18.0*HCT 40.1 42.3 49.7*MCV 97.1* 97.2* 94.0PLT 137 156 210GRANS 72 70 85*LYMPH 16* 19 11*EOS 3 4 1Chemistry Recent Labs 01/04/1904GL U 89 121* 191*NA 140 142 136K 3.6 3.7 4.0CL 106 108* 101CO2 25 27 26BUN 9 13 14CREA 0.50 0.64 0.76 Recent Labs 01/04/1904CA 8.4* 8.4* 10 .4*ALB -- -- 4.4TBILI -- -- 1.0AP -- -- 109SGOT -- -- 19ALT -- -- 43LPSE -- -- 60*Coagulation No results for input(s): PTP, INR, APTT in the last 72 hours.No lab exists for component: INREXTIMAGING RESULTS:Xr Abd (ap And Ere ct Or Decub)Result Date: 01/04/2019XR ABD (AP AND ERECT OR DECUB) Clinical indication: sbo Technique:The abdomenwas examined in two projections: AP supine and AP upright. P riors: 01/03/2019.Findings: Again noted is mildly dilated loops of small bowel whic h can be due toileus or obstruction and the findings are similar to prior study. Th e largebowel is nondilated and demonstrates oral contrast which were utilized for th eprior CT scan of the abdomen and pelvis done on 01/02/2019. No significant fecalresid ue noted. There are no large masses or renal calcification. Calcifiedphleboliths not ed within the pelvis. No evidence of free air. NG tube is notedwithin the lumen o f the stomach.IMPRESSION: Dilated small bowel loops which can be due to ileus or obstr uctionsimilar to prior examination. No free air.Cta Chest W Or W Wo ContResult Date: 01/03/2019CT Angiogram Of The chest with Contrast. History: Chest pain. Abdominal pain..Technique: 100 cc of Isovue 370 from a 100 cc vile was infused intravenously. Axial, sagittal, coronal reconstructed images are being evaluated. 3-Dreconstructed im ages were evaluated on an independent workstation. Usingildaurer's algorit hms the examination was performed to optimize imagequality while utilizing the lowest possible radiation dose. One or more of thefollowing doses reduction techniques was used: Decreasing the mA and or kV,automatic exposure control and iterat nelson reconstruction algorithm.. PRIOR EXAMS:None Findings: There is no evidenc e of a pulmonary embolus. Central pulmonaryarteries are patent. The there is subsegmental atelectasis or infiltrates withinthe lower lobes bilaterally. These findings are new since the prior exam. Nopleural effusion or pneumothorax is se en.. The heart is normal in size. Thereisno pericardial effusion. There is no medias tinal or hilar lymphadenopathy.Aorta is normal in caliber. There is no aortic di ssection. Osseous structuresare intact. There is hepatomegaly with fatty liver infiltr ation. An NG tubeextends into the gastric lumen. Please refer to the CT scan of th e abdomenperformed on 01/02/2019IMPRESSION:: No evidence of a pulmonary embolus. Bila teral lower lobeinfiltrates or subsegmental atelectasis.Assessment:53-year-old femal e admitted with abdominal pain and question of small bowelobstruction versus ileus.O ral contrast seem in left colon on X ray KUB todayTo continue with conservative manag ement with NGT to wall suctionPlan:NPONGTOOB to [facility] acute surgical intervention Will followThank you for allowing me to participate in this patients care and pl ease callme on [phone] with questions and concernsSigned By: Mark hall MD 01/04/2019 11:38 AM Name Value Range Interpretation Code Description Data Gissell rce(s) Supporting Document(s ) ID Date Data Source [id number] 01/04/2019 11:40:32 AM EDT [facility] Name Value Range Interpretation Description Data Sup porting Code Source(s) Document(s ) Glucose 89 MG/DL 65-110 [facility] - [Mass/volume] Community in Blood by Hospital Automated test strip ID Date Data Source [id number] 01/04/2019 10:43:[address] [facility] XR ABD (AP AND ERECT OR DECUB)Clinical i ndication: sboTechnique:The abdomen was examined in two projections: AP supine a nd APupright.Priors: 01/03/2019.Findings: Again noted is mildly dilated loops of s mall bowel which can be duetoileus or obstruction and the findings are similar to prior study. The largebowel is nondilated and demonstrates oral contras t which were utilized for theprior CT scan of the abdomen and pelvis done on 01/02/2019 . No significantfecalresidue noted. There are no large masses or renal calcificati on. Calcifiedphleboliths noted within the pelvis. No evidence of free air. NG tu be isnotedwithin the lumen of the stomach.IMPRESSION: Dilated small bowel loops which can be due to ileus or obstructionsimilar to prior examination. No free air.Signing date/time: 01/04/2019 10:43 AMSigned by: BRUCE SORTO Name Value Range Interpretation Code Description Data Gissell rce(s) Supporting Document(s ) ID Date Data Source [id number] 01/04/2019 09:45:[address] [facility] Progress NoteDaily Progress Note: 019Subjective:Patient admitted for SBO (small bowel obstruction) ([facility]) [K56.609]Pt see n earlier this morning complained of substernal chest pressureTrop was neg , EKG were reviewed no acute STT changes to suggest acute injury .Patient continues to c/o chest pressureObjective:VITALS:Visit VitalsBP (!) 164/100 (BP 1 Location: Lef t arm, BP Patient Position: At rest;Head ofbed elevated (Comment degrees))Pulse 9 2Temp 97.3 F (36.3 C)Resp 18Ht 5' 2" (1.575 m)Wt 90.7 kg (200 lb)SpO2 93%BMI 36.58 k g/m Temp (24hrs), Av F (36.7 C), Min:97.3 F (36.3 C), Max:98.6 F (37 C)PHYSICAL EXAM:[] Unable to obtain due to []mental status change []sedatedGeneral : Alert, cooperative, no distress, appears stated age.Head: Normocephalic, withou t obvious abnormality, atraumatic.Eyes: Conjunctivae clear, anicteric sclerae. Pupils are equalNose: Nares normal. No drainage or sinus tenderness.Throat: Lips, mucosa, and tongue normal. No ThrushNeck: Supple, symmetrical, no ad enopathy, no JVD.Lungs: Clear to auscultation bilaterally. No Wheezing o r Rhonchi. No rales.Chest wall: No tenderness or deformity. No Accessory mu scle use.Heart: Regular rate and rhythm, no murmur, rub or gallop.Abdomen: Soft , non-tender. Not distended. Bowel sounds normal. No massesExtremities: Extremitie s normal, atraumatic, No cyanosis. No edema. No clubbingSkin: Texture, turgor nor mal. No rashes or lesions. Not JaundicedLymph nodes: Cervical, supracla vicular normal.Psych: Good insight. Not depressed. Not anxious or agitated.Neur ologic: EOMs intact. No facial asymmetry. No aphasia or slurred speech.Normal strengt h, Alert and oriented X 3.Intake and Output:Intake/Output Summary (Last 24 ho urs) at 01/04/2019 0935Last data filed at 01/04/2019 0646Gross per 24 hourIntake 32 41.67 mlOutput 150 mlNet 3091.67 mlData Review:Recent Days:Recent Labs 01/04/19 0322 01/03/1912WBC 8.7 7.9 12.8*HGB 13.4 14.4 18.0*HCT 40.1 42.3 49 .7*PLT 137 156 210Recent Labs 01/04/1904NA 140 142 136K 3.6 3.7 4.0CL 106 108* 101CO2 25 27 26GLU 89 121* 191*BUN 9 13 14CREA 0.50 0.64 0.76C A 8.4* 8.4* 10.4*ALB -- -- 4.4TBILI -- -- 1.0SGOT -- -- 19ALT -- -- 43 No results for input(s): PH, PCO2, PO2, HCO3, FIO2 in the last 72 hours.Cta Chest W Or W Wo ContResult Date: 01/03/2019CT Angiogram Of The chest with Contrast. History: Brandee st pain. Abdominal pain..Technique: 100 cc of Isovue 370 from a 100 cc vile was inf used intravenously.Axial, sagittal, coronal reconstructed images are being evaluated . 3-Dreconstructed images were evaluated on an independent workstation. UsingWhistle Groupaisha sykes's algorithms the examination was performed to optimize imagequality while utilizing the lowest possible radiation dose. One or more of thefollowing doses reduction techniques was used: Decreasing the mA and or kV,automatic exposure control and iterative reconstruction algorithm.. PRIOR EXAMS:None Findings: There is no e vidence of a pulmonary embolus. Central pulmonaryarteries are patent. The there is subsegmental atelectasis or infiltrates withinthe lower lobes bilaterally. These findings are new since the prior exam. Nopleural effusion or pneumothorax is se en.. The heart is normal in size. Thereisno pericardial effusion. There is no medias tinal or hilar lymphadenopathy.Aorta is normal in caliber. There is no aortic di ssection. Osseous structuresare intact. There is hepatomegaly with fatty liver infiltr ation. An NG tubeextends into the gastric lumen. Please refer to the CT scan of th e abdomenperformed on 01/02/2019IMPRESSION:: No evidence of a pulmonary embolus. Bila teral lower lobeinfiltrates or subsegmental atelectasis.Problem List:Problem List as of 01/04/2019 Date Reviewed: 03/09/2014 Codes Class Noted - Resolved SBO (small bowel obstruction) (HCC) ICD-10-CM: K56.609ICD-9-CM: 560.9 01/02/2019 - Pres ent Trigger finger of left hand (Chronic) ICD-10-CM: M65.30ICD-9-CM: 727.03 2013 - PresentMedications reviewedCurrent Facility-Administered MedicationsMedicat ion Dose Route Frequency sucralfate (CARAFATE) tablet 1 g 1 g Oral AC&H S benzocaine (HURRICAINE) 20 % spray Mucous Membrane PRN metoprolol (LOPRESS OR) injection 5 mg 5 mg IntraVENous Q6H aspirin chewable tablet 81 mg 81 mg Per NG tube DAILY atorvastatin (LIPITOR) tablet 20 mg 20 mg Per NG tube QHS acetaminop hen (TYLENOL) tablet 650 mg 650 mg Oral Q4H PRN HYDROcodone-acetaminophen (NORCO) 5 -325 mg per tablet 1 Tab 1 Tab Oral Q4HPRN HYDROmorphone (PF) (DILAUDID) injection 1 mg 1 mg IntraVENous Q4H PRN diphenhydrAMINE (BENADRYL) capsule 25 mg 25 mg Oral Q4H PRN ondansetron (ZOFRAN) injection 4 mg 4 mg IntraVENous Q4H PRN magnesium hydroxide (MILK OF MAGNESIA) 400 mg/5 mL oral suspension 30 mL 30mL Oral DAILY PRN heparin (porcine) injection 5,000 Units 5,000 Units SubCUTAneous Q8H ins ulin lispro (HUMALOG) injection SubCUTAneous TIDAC dextrose 40% (GLUTOS E) oral gel 1 Tube 15 g Oral PRN glucagon (GLUCAGEN) injection 1 mg 1 mg IntraMUS Cular PRN dextrose (D50W) injection syrg 12.5-25 g 25-50 mL IntraVENous PRN 0.9 % sodium chloride infusion 100 mL/hr IntraVENous [id number] y.o. female w/ DM2,HTN,admitted for iffuse abdominal pain onset 3 days agowith associated diarrhea and vomiting. Patient also c/o mild chest pain.Assessment/Plan:1.partial SBO versu s resolving SBO versus ileusCont NGT2.Chest pain-nl trop - persistent , recurrent Pt on prophylactic dose of heparin CTA chest - is negative for PECardiologist a grees with IV beta israel while pt is NPOEcho for LVEF and wall motion are unr emarkablecont ASA, statin, ACEI or ARB when able to take oral medsCardiologist may h ave to perform diagnostic cathDVT Prophylaxis:[] Venodynes[] Lovenox[x] He kristin[] No Lovenox or Heparin for risk of bleedingCare Plan discussed with: Patien t/Family in detail. Expressed understanding andis in agreement.Christo CavazosJohn st 2018 Name Value Range Interpretation Code Description Data Gissell rce(s) Supporting Document(s ) ID Date Data Source [id number] 01/04/2019 08:40:36 AM EDT [facility] Name Value Range Interpretation Description Data Sup porting Code Source(s) Document(s ) Glucose 87 MG/DL 65-110 [facility] - [Mass/volume] Community in Blood by Hospital Automated test strip ID Date Data Source [id number] 01/04/2019 07:33:07 AM EDT [facility] Verbal shift change report given to mohan jordan rn (oncoming nurse) by - YESICA SCHAEFFER (offgoing nurse). Report given with SBA R, Kardex, MAR and Recent Results. Name Value Range Interpretation Code Description Data [facility] rce(s) Supporting Document(s ) ID Date Data Source [id number] 01/04/2019 04:49:45 AM EDT [facility] Name Value Range Interpretation Description Data Sup porting Code Source(s) Document(s ) Troponin 0.00-0.05 [facility] - I.cardiac Community [Mass/volume Hospital ] in Serum or Plasma (NOTE)The presence of detectable troponi n above the reference rangeindicates myocardial injury which may be due to is chemia,myocarditis, trauma, etc. Clinical correlation is necessary todetermine the significance of this finding. Sequential testing isrecommended to determine if th e typical rise and fall of cTnI isdemonstrated. Note, cardiac troponin-I has a relatively longhalf-life and may be present well after the CK MB has returne d tobaseline. cTnI results in the indeterminate/eugene zone for myocardial infarction: 0.06 to 0.59 ng/mL cTnI cutoff/range of values consistent with m yocardial infarction: 0.60 to 1.50 ng/mL ID Date Data Source [id number] 01/04/2019 04:36:21 AM EDT [facility] Name Value Range Interpretation Description Data Sup porting Code Source(s) Document(s ) Sodium 140 136-145 [facility] - [Moles/volume] mmol/L Community in Serum or Hospital Plasma Potassium 3.6 3.5-5.1 [facility] - [Moles/volume] mmol/L Community in Serum or Hospital Plasma Chloride 106 98-107 [facility] - [Moles/volume] mmol/L Community in Serum or Hospital Plasma Carbon 25 21-32 [facility] - dioxide, total mmol/L Community [Moles/volume] Hospital in Serum or Plasma Anion gap in 12 10-20 [facility] - Serum or mmol/L Community Plasma Hospital Glucose 89 mg/dL 74-106 [facility] - [Mass/volume] Community in Serum or Hospital Plasma Urea nitrogen 9 mg/dL 7-18 [facility] - [Mass/volume] Community in Serum or Hospital Plasma Creatinine 0.50 0.40-1.1 [facility] - [Mass/volume] mg/dL 6 Community in Serum or Hospital Plasma Glomerular >60 [facility] - filtration Community rate/1.73 sq M Hospital predicted among blacks [Volume Rate/Area] in Serum or Plasma by Creatinine-bas ed formula (MDRD) Glomerular >60 [facility] - filtration Community rate/1.73 sq M Hospital predicted among non-blacks [Volume Rate/Area] in Serum or Plasma by Creatinine-bas ed formula (MDRD) Calcium 8.4 8.5-10.1 Below low normal [facility] - [Mass/volume] mg/dL Community in Serum or Hospital Plasma ID Date Data Source [id number] 01/04/2019 03:52:23 AM EDT [facility] - [facility] Name Value Range Interpretation Description Data Sup porting Code Source(s) Document(s ) Leukocytes 8.7 K/uL 4.8-10.6 [facility] - [#/volume] in Community Blood by Hospital Automated count Erythrocytes 4.13 4.20-5.4 Below low normal [facility] - [#/volume] in M/uL 0 Community Blood by Hospital Automated count Hemoglobin 13.4 12.0-16. [facility] - [Mass/volume] in g/dL 0 [facility] Blood [facility] Hematocrit 40.1 % 36.0-47. [facility] - [Volume 0 Community Fraction] of Hospital Blood by Automated count Erythrocyte mean 97.1 FL 81.0-94. Above high normal [facility] - corpuscular 0 Community volume [Entitic Hospital volume] by Automated count Erythrocyte mean 32.4 PG 27.0-35. [facility] - corpuscular 0 [facility] [Entitic mass] by Automated count Erythrocyte mean 33.4 30.7-37. [facility] - corpuscular g/dL 3 [facility] hemoglobin Hospital concentration [Mass/volume] by Automated count Erythrocyte 12.9 % 11.5-14. [facility] - distribution 0 Community width [Ratio] by Hospital Automated count Platelets 137 K/uL 130-400 [facility] - [#/volume] in Community Blood by Hospital Automated count Platelet mean 10.7 FL 9.2-11.8 [facility] - volume [Entitic Community volume] in Blood Hospital by Automated count Segmented 72 % 48.0-72. [facility] - neutrophils/100 0 Community leukocytes in Hospital Blood Lymphocytes/100 16 % 18.0-40. Below low normal [facility] - leukocytes in 0 [facility] Blood Hospital Monocytes/100 9 % 2.0-12.0 [facility] - leukocytes in [facility] Blood Hospital Eosinophils/100 3 % 0.0-7.0 [facility] - leukocytes in [facility] Blood Hospital Basophils/100 0 % 0.0-3.0 [facility] - leukocytes in [facility] Blood Hospital Segmented 6.3 K/UL 1.5-6.6 [facility] - neutrophils Community [#/volume] in Hospital Blood Lymphocytes 1.4 K/UL 1.5-3.5 Below low normal [facility] - [#/volume] in [facility] Blood Hospital Monocytes 0.8 K/UL 0.0-1.0 [facility] - [#/volume] in [facility] Eosinophils 0.3 K/UL 0.0-0.7 [facility] - [#/volume] in [facility] Blood Hospital Basophils 0.0 K/UL 0.0-0.1 [facility] - [#/volume] in [facility] Blood Hospital Differential [facility] - cell count [facility] Immature 0 % 0.0-2.0 [facility] - granulocytes/100 Community leukocytes in Hospital Blood by Automated count ID Date Data Source [id number] 01/04/2019 01:19:43 AM EDT [facility] - [facility] Back from [facility]. Name Value Range Interpretation Code Description Data Gissell rce(s) Supporting Document(s ) ID Date Data Source [id number] 01/03/2019 08:56:21 PM EDT [facility] - [facility] CT Angiogram Of The chest with Contrast. History: Chest pain. Abdominal pain..Technique: 100 cc of Isovue 370 f rom a 100 cc vile was infused intravenously.Axial, sagittal, coronal r econstructed images are being evaluated. 3-Dreconstructed images were evaluated o n an independent workstation.Using inflated pad buffer's algorithms the examinatio n was performed to optimizeimagequality while utilizing the lowest possible radiation dose. One or more of thefollowing doses reduction techniques was used: Decreasin g the mA and or kV,automatic exposure control and iterative reconstruction algorithm.. PRIOR EXAMS: NoneFindings: There is no evidence of a pulmonary embolus. Central pulmonaryarteries are patent. The there is subsegmental atelectasis or infiltrates within the lower lobesbilaterally. These findings are new since the prior exam. N o pleural effusionorpneumothorax is seen..The heart is normal in size. There is no per icardial effusion.There is no mediastinal or hilar lymphadenopathy.Aorta is normal in caliber. There is no aortic dissection.Osseous structures are intact .There is hepatomegaly with fatty liver infiltration. An NG tube extends intothe gastric lumen. Please refer to the CT scan of the abdomen performed on01/02/2019IMPRESS ION:: No evidence of a pulmonary embolus. Bilateral lower lobeinfiltrates or subse gmental atelectasis.Signing date/time: 01/03/2019 8:56 PMSigned by: JANI HENRY RT Name Value Range Interpretation Code Description Data [facility] rce(s) Supporting Document(s ) ID Date Data Source [id number] 01/03/2019 09:04:11 PM EDT [facility] Name Value Range Interpretation Description Data Sup porting Code Source(s) Document(s ) Glucose 97 MG/DL 65-110 [facility] - [Mass/volume] Community in Blood by Hospital Automated test strip ID Date Data Source [id number] 01/03/2019 04:19:49 PM EDT [facility] Name Value Range Interpretation Description Data Sup porting Code Source(s) Document(s ) Glucose 107 MG/DL 65-110 [facility] - [Mass/volume] Community in Blood by Hospital Automated test strip ID Date Data Source [id number] 01/03/2019 03:38:[address] [facility] Pt to get a CTA of chest Able to ambula te to bathroom with minimal assist,chest discomfort a 5 as per pt more tolerable last troponin negative In noacute distress Under close monitoring Name Value Range Interpretation Code Description Data Gissell rce(s) Supporting Document(s ) ID Date Data Source [id number] 01/03/2019 03:23:[address] [facility] Progress NoteDaily Progress Note: 019Subjective:Patient admitted for SBO (small bowel obstruction) ([facility]) [K56.609]Pt see n earlier this morning complained of substernal chest pressureTrop was neg , EKG were reviewed no acute STT changes to suggest acute injuryObjective:VITALS:Vis it VitalsBP (!) 141/91 (BP 1 Location: Left arm, BP Patient Position: At rest)Pulse 99Temp 99 F (37.2 C)Resp 20Ht 5' 2" (1.575 m)Wt 90.7 kg (200 lb)SpO2 93%BMI 36.58 k g/m Temp (24hrs), Av.8 F (37.1 C), Min:97.6 F (36.4 C), Max:99.2 F (37.3 C)PHYSICAL EXAM:[] Unable to obtain due to []mental status change []sedatedGeneral : Alert, cooperative, no distress, appears stated age.Head: Normocephalic, withou t obvious abnormality, atraumatic.Eyes: Conjunctivae clear, anicteric sclerae. Pupils are equalNose: Nares normal. No drainage or sinus tenderness.Throat: Lips, mucosa, and tongue normal. No ThrushNeck: Supple, symmetrical, no ad enopathy, thyroid: non tender no carotid bruit and no JVD.Back: Symmetric, No CVA tenderness.Lungs: Clear to auscultation bilaterally. No Wheezing o r Rhonchi. No rales.Chest wall: No tenderness or deformity. No Accessory mu scle use.Heart: Regular rate and rhythm, no murmur, rub or gallop.Abdomen: Soft , non-tender. Not distended. Bowel sounds normal. No massesExtremities: Extremitie s normal, atraumatic, No cyanosis. No edema. No clubbingSkin: Texture, turgor nor mal. No rashes or lesions. Not JaundicedLymph nodes: Cervical, supracla vicular normal.Psych: Good insight. Not depressed. Not anxious or agitated.Neur ologic: EOMs intact. No facial asymmetry. No aphasia or slurred speech.Normal stren gth, Alert and oriented X 3.Intake and Output:Intake/Output Summary (Last 24 ho urs) at 01/03/2019 1112Last data filed at 01/02/2019 1813Gross per 24 hourIntake 10 00 mlOutput 800 mlNet 200 mlData Review:Recent Days:Recent Labs 01/03/19 0438 WBC 7.9 12.8*HGB 14.4 18.0*HCT 42.3 49.7*PLT 156 210Recent Lab s 438 NA 142 136K 3.7 4.0CL 108* 101CO2 27 26GLU 121* 191*BUN 13 14CREA 0.64 0.76CA 8.4* 10.4*ALB -- 4.4TBILI -- 1.0SGOT -- 19ALT -- 43 No results for input(s): PH, PCO2, PO2, HCO3, FIO2 in the last 72 hours.Xr Abd (kub)Re sult Date: 01/02/2019XR ABD (KUB) PRIOR: None HISTORY: Limited to that provided by the emergencydepartment at the time of the examination; Patient complaining of ches t pain,abdominal pain with n/v that started yesterday. FINDINGS: An NGT is present andin good position. Mild mid left sided abdominal ileus is identified. No abnorm aldensities are identified. No bowel wall thickening, pneumatosis or free air isid entified in the visualized limited abdomen/upper pelvis. The visualizedosse ous structures are unremarkable for age.IMPRESSION: 1. NGT good position as above. 2. Left midabdomen ileus; noobstruction or free air identified.Xr Abd (ap And Erect Or Decub)Result Date: 01/03/2019EXAM: XR ABD (AP AND ERECT OR D ECUB) INDICATION: SBO vs ileus COMPARISON:01/02/2019 1821 hours. FINDING S: A supine radiograph of the abdomen shows dilatedloops of small bowel measuring up to 4 cm in the left upper quadrant. There isgas in the colon. There are phlebolith s overlying the pelvis.IMPRESSION: There is gas identified in the colon improved fro m prior exam dated01/02/2019 at 1821 hours. There are however aren't dilated loops o f small bowelmeasuring up to 4 cm. Findings may represent a partial SBO or ileus. Co ntinuedfollow-up is suggested.Ct Abd Pelv W ContResult Date: 01/02/2019CT ABDOMEN PEL VIS W/ CONTRAST PRIOR: None HISTORY: Limited to that provided bythe emergency departm ent at the time of the examination; Patient complaining ofchest pain, abdominal pain with n/v that started yesterday.? TECHNICAL FACTORS:Spiral images were obtained from the lung bases to the symphysis pubis duringthe dynamic administration of 100 mL, (from a 100 mL single use vial), ofnon-ionic contrast, (Isovue-300). Or al contrast was utilized for bowelopacification. From the data set sa gittal and coronal reconstruction images werecreated on an independent workstatio n and electronically [facility]. Utilizing inflated pad buffer algorithms the ex amination was performed tooptimize image quality while utilizing the lowest possi ble ionizing radiationdose. One or more of the following doses reduction techniques was used:Decreasing the mA and or kV, automatic exposure control and iterative reconstruction algorithm. LOWER CHEST: Extrathoracic soft tissues: Unremarkable Cardiac base: Unremarkable. Lung bases: Dependent atelectatic changes areidentif ied posteriorly. No infiltrates or effusions are present. ABDOMEN: Liver:Diffuse homo geneous decreased attenuation most consistent with fattyinfiltration. No duct dilatati on, cyst or mass is identified. There is a smallamount of ascites interposed betwee n the right lobe of the liver and diaphragm.Gallbladder: Contracted-multip le gallstones are identified. No gallbladder wallthickening or pericholecystic fluid collections are identified. Spleen:Unremarkable Pancreas: Unremarkab le Stomach/small bowel: Stomach iswell-distended with oral contrast. The re is small bowel dilatation consistentwith an early small bowel obstruction. No wal l thickening or free air isidentified. There is a small amount of free fluid surround ing the distal smallbowel in the RLQ as well as in the left lower quadrant. The termi nal ileum isdecompressed and there is a transition identified of the distal smal lbowel-series 2, #38-50. Colon: Scattered diverticuli are identified of thedistal ascending and transverse portions of the colon. No obstruction isidentified. Mese ntery: No adenopathy or mass is identified. Adrenals:Unremarkable Aorta: Mild ather osclerotic calcification is identified greatestinfrarenal. No aneurysm is prese nt. Retroperitoneum: No adenopathy or mass isidentified. Kidneys: Right: In the in terpolar portion there is awell-circumscribed 1.1 cm low-attenuation mass statisticall y most consistentwith a cyst. The kidney is otherwise unremarkable including its par enchymalenhancement. Left: In the upper polar portion there is a well-circumscri bed 1.3several low-attenuation mass consistent with a cyst. The left kidney, includingits parenchymal enhancement is otherwise unremarkable. PELVIS: Small am ount offree fluid is identified within the cul-de-sac. The uterus is unremarkable. Thebladder is mild to moderately distended. Several phleboliths are identified. Noil iac or inguinal adenopathy is identified. Within the subcutaneous soft tissuesof t he buttocks there are multiple dense coarse calcifications consistent withinjection granulomas. BONE: There is a mild broad C-shaped dextroscolioticcurvature of the lumbar spine. Productive degenerative marginal osteophytes areidentified of mu ltiple thoracic and lumbar vertebral bodies. No lytic, blasticor bony destructive clara nges are identified.IMPRESSION: 1. Findings consistent with small bowel obstruction- withouttransition the distal portion-no free air identified though there is a smallam ount of free fluid within the abdomen and pelvis. 2. Fatty infiltration of thelive r. 3. Cholelithiasis without findings suggesting cholecystitis. 4. Singlerenal cysts. 5. Dextroscoliotic curvature of the lumbar spine. The above waspersonally ca lled to and discussed with Dr. Garner at 1712 hours.Problem List:Problem List as of 01/03/2019 Date Reviewed: 03/09/2014 Codes Class Noted - Resolved SBO (small bowel obstruction) (HCC) ICD-10-CM: K56.609ICD-9-CM: 560.9 01/02/2019 - Pres ent Trigger finger of left hand (Chronic) ICD-10-CM: M65.30ICD-9-CM: 727.03 2013 - PresentMedications reviewedCurrent Facility-Administered MedicationsMedicat ion Dose Route Frequency mineral oil 30 mL 30 mL Per NG tube ONCE magnesium hydrox torres (MILK OF MAGNESIA) 400 mg/5 mL oral suspension 30 mL 30mL Per NG tube ONCE benzocaine (HURRICAINE) 20 % spray Mucous Membrane PRN acetaminophen (TYLENOL) ta blet 650 mg 650 mg Oral Q4H PRN HYDROcodone-acetaminophen (NORCO) 5-325 mg per tablet 1 Tab 1 Tab Oral Q4HPRN HYDROmorphone (PF) (DILAUDID) injection 1 mg 1 mg IntraVENous Q4H PRN diphenhydrAMINE (BENADRYL) capsule 25 mg 25 mg Oral Q4H PRN ondansetron (ZOFRAN) injection 4 mg 4 mg IntraVENous Q4H PRN magnesium hydroxide (MILK OF MAGNESIA) 400 mg/5 mL oral suspension 30 mL 30mL Oral DAILY PRN heparin (porcine) injection 5,000 Units 5,000 Units SubCUTAneous Q8H ins ulin lispro (HUMALOG) injection SubCUTAneous TIDAC dextrose 40% (GLUTOS E) oral gel 1 Tube 15 g Oral PRN glucagon (GLUCAGEN) injection 1 mg 1 mg IntraMUS Cular PRN dextrose (D50W) injection syrg 12.5-25 g 25-50 mL IntraVENous PRN met oprolol (LOPRESSOR) injection 2.5 mg 2.5 mg IntraVENous Q6H 0.9% sodium chloride in fusion 100 mL/hr IntraVENous [id number] y.o. female w/ DM2,HTN,admitted for iffu se abdominal pain onset 3 days agowith associated diarrhea and vomiting. Patien t also c/o mild chest pain.Assessment/Plan:1.partial SBO versu s resolving SBO versus ileusCt NGT2.Chest pain-nl trop - persistent , recurrent Pt on prophylactic dose of heparinPlan- stat CTA chest - r/o PECardio Recom-Agree wit h IV beta israel while pt is NPOEcho for LVEF and wall motionct ASA, statin, ACEI or ARB when able to take oral medsStress test with imageDiscussed w/ nurse ,DVT P rophylaxis:[] Venodynes[] Lovenox[] Heparin[] No Lovenox or Heparin for risk of bleedi ngCare Plan discussed with: Patient/Family in detail. Expressed understanding andis in agreement.Lifestyle modifications including diet, exercise, medical compliance andim portance of outpatient medical followup was discussed. Laure Lama, [facility] 201811:12 AM Name Value Range Interpretation Code Description Data Gissell rce(s) Supporting Document(s ) ID Date Data Source [id number] 01/03/2019 03:08:[address] [facility] Care Management InterventionsMode of Tra nsport at Discharge: Other (see comment)(family)Transition of Care Consu lt (CM Consult): Discharge PlanningPhysical Therapy Consult: NoCurrent Support Netwo rk: OtherConfirm Follow Up Transport: SelfPlan discussed with Pt/Family/Caregi wilfredo: YesFreedom of Choice Offered: YesVeteran Resource Information Provided?: NoDischa rge LocationDischarge Placement: HomeCM met with patient @ bedside, introduced self and CM role. Pt fully IPTA noneeds from CM. Name Value Range Interpretation Code Description Data Gissell rce(s) Supporting Document(s ) ID Date Data Source [id number] 01/03/2019 02:58:[address] [facility] 01/03/19 1447VitalsPulse (Heart Rate) 9 2Heart Rate Source MonitorResp Rate 16O2 Sat (%) 93 %Level of Consciousness AlertBP ( !) 145/99MAP (Calculated) 114BP 1 Location Left armBP Patient Position SupineCardia c Rhythm NSRpt c/o of chest pain, pointing to sternal area, reports pain as a 6Stat EK G and troponin done Oxygen 2L under close monitoring Name Value Range Interpretation Code Description Data Gissell rce(s) Supporting Document(s ) ID Date Data Source [id number] 01/03/2019 03:17:49 PM EDT [facility] Name Value Range Interpretation Description Data Sup porting Code Source(s) Document(s ) Troponin 0.00-0.05 [facility] - [facility] Community [Mass/volume Hospital ] in Serum or Plasma (NOTE)The presence of detectable troponi n above the reference rangeindicates myocardial injury which may be due to is chemia,myocarditis, trauma, etc. Clinical correlation is necessary todetermine the significance of this finding. Sequential testing isrecommended to determine if th e typical rise and fall of cTnI isdemonstrated. Note, cardiac troponin-I has a relatively longhalf-life and may be present well after the CK MB has returne d tobaseline. cTnI results in the indeterminate/eugene zone for myocardial infarction: 0.06 to 0.59 ng/mL cTnI cutoff/range of values consistent with m yocardial infarction: 0.60 to 1.50 ng/mL ID Date Data Source [id number] 01/03/2019 01:55:[address] [facility] Echo completed Name Value Range Interpretation Code Description Data Gissell rce(s) Supporting Document(s ) ID Date Data Source [id number] 01/03/2019 12:58:[address] [facility] Problem: PainGoal: *Control of PainOutco me: Progressing Towards GoalProblem: Small Bowel Obstruction: Day 1Goal: Activity/S afetyOutcome: Progressing Towards GoalProblem: Small Bowel Obstruction: Da y 1Goal: Consults, if orderedOutcome: Resolved/Not MetProblem: Small Bowel Obs truction: Day 1Goal: Diagnostic Test/ProceduresOutcome: Progressing Towa rds Goal Name Value Range Interpretation Code Description Data Gissell rce(s) Supporting Document(s ) ID Date Data Source [id number] 01/03/2019 12:32:11 PM EDT [facility] Name Value Range Interpretation Description Data Sup porting Code Source(s) Document(s ) Glucose 116 MG/DL 65-110 Above high normal [facility] - [Mass/volume] Community in Blood by Hospital Automated test strip ID Date Data Source [id number] 01/03/2019 11:13:51 AM EDT [facility] CardiologyConsult NotePatient Name: Verito Velasco , , [id number] of Admission: 01/02/2019 11:51 AMPrimary Care Physician : Samantha Carter MD History of Present Illness:This is a 53 years old female wi th hx of HTN and DM who presented to ER with 3days duration of abd pain and vomiting. She was dx with small bowel obstructionand was admitted. In addition, pt also c/o episodes of chest pain for about oneweek [employer]. The pain is described as pressure sensa tion, with radiation to neckand left arm. The discomfort in not necessarily effort related. However, shedid feel that the discomfort was exacerbated by physical a ctivities and relievedby rest. The patient stated that she had similar type of pain about 7 years ago.She was given NTG with improvement of symptoms after one month. . She statedthat she had a stress test then.Her CAD risk factors are HTN, DM. T obacco use, Post menopausal state,hyperlipidemia and family hx of CA D.REVIEW OF SYSTEMS:General: negative for fever or chillsRespiratory: negative fo r SOBCardiology: negative for palpitations, orthopnea, PND, syncope, positive forche st painGastrointestinal: negative for bleeding, positive for abd pain and vomi tingGenitourinary: negative for hematuriaMuskuloskeletal : negative for arthralgia, myalgiaHematology: negative for easy bruisingDermatological: negative fo r rashEndocrine: negative for polyuriaNeurological: negative for heada brandee or dizziness Past Medical History:Past Medical History:Diagnosis Date Diabetes (HCC) diet controlled pre-diabetic Hypertension Trigger finger of left sorto d 12/08/2013 Social History:Social HistorySocioeconomic History Marital st atus: Spouse name: Not on file Number of children: Not on file Years o f education: Not on file Highest education level: Not on fileTobacco Use Smoking s tatus: Current Every Day Smoker Packs/day: 0.50 Years: 20.00 Pack years: 10.00 S mokeless tobacco: Never UsedSubstance and Sexual Activity Alcohol use: No Drug u se: No Sexual activity: Not Currently Partners: Male Family History:Family His toryProblem Relation Age of Onset Diabetes Mother Heart Disease Mother Surgical Hi story:Past Surgical History:Procedure Laterality Date HX ORTHOPAEDIC right ca rpal tunnelMedications:No Known AllergiesPrior to Admission MedicationsP rescriptions Last Dose Informant Patient Reported? Taking?OTHER Yes NoSig: Take by mouth daily. Vitamin D, Calcium, fiber, Vitamin B12 (all OTC)atorvastatin (LIPIT OR) 10 mg tablet Yes NoSig: Take 10 mg by mouth daily.metformin (GLUCOPHAGE) 500 m g tablet Not Taking at Unknown time Yes NoSig: Take 500 mg by mouth daily.metopr olol (LOPRESSOR) 50 mg tablet 01/02/2019 at 0900 Yes NoSig: Take 100 mg by mouth da artemio. Indications: HYPERTENSIONFacility-Administered Medica tions: NoneCurrent Facility-Administered MedicationsMedication Dose Route Frequen cy mineral oil 30 mL 30 mL Per NG tube ONCE magnesium hydroxide (MILK OF MAGNESIA) 400 mg/5 mL oral suspension 30 mL 30mL Per NG tube ONCE acetaminophen (TYLENOL) ta blet 650 mg 650 mg Oral Q4H PRN HYDROcodone-acetaminophen (NORCO) 5-325 mg per tablet 1 Tab 1 Tab Oral Q4HPRN HYDROmorphone (PF) (DILAUDID) injection 1 mg 1 mg IntraVENous Q4H PRN diphenhydrAMINE (BENADRYL) capsule 25 mg 25 mg Oral Q4H PRN ondansetron (ZOFRAN) injection 4 mg 4 mg IntraVENous Q4H PRN magnesium hydroxide (MILK OF MAGNESIA) 400 mg/5 mL oral suspension 30 mL 30mL Oral DAILY PRN heparin (porcine) injection 5,000 Units 5,000 Units SubCUTAneous Q8H ins ulin lispro (HUMALOG) injection SubCUTAneous TIDAC dextrose 40% (GLUTOS E) oral gel 1 Tube 15 g Oral PRN glucagon (GLUCAGEN) injection 1 mg 1 mg IntraMUS Cular PRN dextrose (D50W) injection syrg 12.5-25 g 25-50 mL IntraVENous PRN met oprolol (LOPRESSOR) injection 2.5 mg 2.5 mg IntraVENous Q6H 0.9% sodium chloride in fusion 100 mL/hr IntraVENous CONTINUOUS Physical Exam:Visit VitalsBP (!) 141/91 (BP 1 Location: Left arm, BP Patient Position: At rest)Pulse 99Temp 99 F (37 .2 C)Resp 20Ht 5' 2" (1.575 m)Wt 90.7 kg (200 lb)SpO2 93%BMI 36.58 kg/m BP Readin gs from Last 3 Encounters:01/03/19 (!) 141/ 145/ 125/83Puls e Readings from Last 3 Encounters:01/03/19 66Wt Readings from Last 3 Encounters:01/02/19 90.7 kg (200 lb)05/26/15 78.9 kg (174 lb)03/09/14 78. 9 kg (174 lb)Physical Exam: General: WD, WN. Alert, cooperative, in mild distress. HEENT: NC, Atraumatic. Anicteric sclerae, No caroti d bruits. Thyroid nonpalpable. Lungs: CTA Bilaterally. No wheezing/rhon chi/rales. Heart: Regular Rhythm, No murmur/rubs/gallops. No S3 or S4. Abdomen: Slightly distended, tender to deep palpation, scant bowelSou nd noted Extremities: No c/c/e. Neurologic: No acute neurological defici t. CN intact. Skin : Texture, turgor normal. No rashes or lesions. Ankit a Review:Recent Labs 01/03/1912WBC 7.9 12.8*HGB 14.4 18.0*H CT 42.3 49.7*PLT 156 210MCV 97.2* 94.0Recent Labs 01/03/1912NA 142 13 6K 3.7 4.0CL 108* 101CO2 27 26GLU 121* 191*BUN 13 14CREA 0.64 0.76CA 8.4* 10.4* ALB -- 4.4SGOT -- 19ALT -- 43Recent Labs 01/02/192301/02/19 1220TROIQ <0.02 <0.02 <0.02Last Lipid:Lab ResultsComponent Value Date/Time Cholest juancho, total 211 (H) 01/02/2019 11:59 PM HDL Cholesterol 51 01/02/2019 11:59 PM LDL, calculated 129 (H) 01/02/2019 11:59 PM Triglyceride 155 (H) 01/02/2019 11:59 PM CHOL/HDL Ratio 4.1 01/02/2019 11:59 PMEKG: NSR, poor R wave progression V1 to V6, i ncomplete RBBB Assessment:Small bowel obstructionChest pain-- the characterist ic of chest pain is suggestive of exertional anginain a pt with multiple risk factors for CAD. There is no ECG changes suggestiveof acute ischemiaHTNDMhyperlip idemia Plan:1. Tele2. Agree with IV beta israel while pt is NPO3. Echo for LVEF and wall motion4. Will start ASA, statin, ACEI or ARB when able to take oral meds5 . Stress test with image when SBO resolved. If pt has recurrent chest pain c/mauri , then will consider diagnostic cathSigned By: Evens Leonardo MD January 03, 2019 Name Value Range Interpretation Code Description Data Gissell rce(s) Supporting Document(s ) ID Date Data Source [id number] 01/03/2019 11:11:[address] [facility] CONSULT NOTENAME: Verito StevenbasilioDOB: 1965Sex: femaleMRN: [id number]: 01/02/2019ATTENDING: Laure Lama MDPCP: Samantha Carter, MDDate/Time: 01/03/2019 10:10 AMSubjective:REASON FOR CONSULT:Verito is a 53 y.o. female who I was asked to see for abdominal pain.Patient noted onset of abdominal pain on Sunday of this week. This wasaccompanied with frederick sea, vomiting, diarrhea. Patient noted the diarrhearesolved on the same day. She c ontinued to pass small stools and gas sincethen. However her abdominal pain p ersisted and she continued to have nausea andvomiting. She denies fevers or chill s. Patient was also complaining of chestpain, which she says is similar to symptoms kelvin preston suffered about 7 years ago.Patient reports that she had a laparoscopic biopsy of an ovarian mass many yearsago. She has no other history of abdominal surgical proc edures.At the time of my evaluation, the patient's primary complaint is throat so renessrelated to the NG tube. She reports that she is still having some abdominald iscomfort and experiencing bloating, however she does feel that it is improvedfrom ea rlier in the week.Patient had a colonoscopy approximately 3 years ago. Findings wer e unremarkableother than hemorrhoids per her report. She was told to return in 8 yea rs forrepeat colonoscopy.Past Medical History:Diagnosis Date Diabetes (HCC) d iet controlled pre-diabetic Hypertension Trigger finger of left hand 12/08/2013Pas t Surgical History:Procedure Laterality Date HX ORTHOPAEDIC right carpal tunnelFamily HistoryProblem Relation Age of Onset Diabetes Mother Heart Disease MotherSoc ial HistorySocioeconomic History Marital status: Spouse name: Not on hollis e Number of children: Not on file Years of education: Not on file Highest educatio n level: Not on fileTobacco Use Smoking status: Current Every Day Smoker Packs/ day: 0.50 Years: 20.00 Pack years: 10.00 Smokeless tobacco: Never UsedSubstance a nd Sexual Activity Alcohol use: No Drug use: No Sexual activity: Not Currently Partners: MalePrior to Admission medicationsMedication Sig Start Date End Date Taking? Authorizing Provideratorvastatin (LIPITOR) 10 mg tab let Take 10 mg by mouth daily. Provider,Historicalmetformin (GLUCOPHAGE ) 500 mg tablet Take 500 mg by mouth daily. Provider,Historicalmetoprolol (LOPRESSO R) 50 mg tablet Take 100 mg by mouth daily. Indications:HYPERTENSION Provider, Hi storicalOTHER Take by mouth daily. Vitamin D, Calcium, fiber, Vitamin B12 (all OTC) Provider, HistoricalNo Known AllergiesCurrent Facility-Administered MedicationsMedicat ion Dose Route Frequency mineral oil 30 mL 30 mL Per NG tube ONCE magnesium hydrox torres (MILK OF MAGNESIA) 400 mg/5 mL oral suspension 30 mL 30mL Per NG tube ONCE acetaminophen (TYLENOL) tablet 650 mg 650 mg Oral Q4H PRN HYDROcodone-acetaminoph en (NORCO) 5-325 mg per tablet 1 Tab 1 Tab Oral Q4HPRN HYDROmorphone (PF) (DILAUDI D) injection 1 mg 1 mg IntraVENous Q4H PRN diphenhydrAMINE (BENADRYL) capsule 25 mg 25 mg Oral Q4H PRN ondansetron (ZOFRAN) injection 4 mg 4 mg IntraVENous Q4H PRN magnesium hydroxide (MILK OF MAGNESIA) 400 mg/5 mL oral suspension 30 mL 30mL Oral DAILY PRN heparin (porcine) injection 5,000 Units 5,000 Units SubCUTAneous Q8H ins ulin lispro (HUMALOG) injection SubCUTAneous TIDAC dextrose 40% (GLUTOS E) oral gel 1 Tube 15 g Oral PRN glucagon (GLUCAGEN) injection 1 mg 1 mg IntraMUS Cular PRN dextrose (D50W) injection syrg 12.5-25 g 25-50 mL IntraVENous PRN met oprolol (LOPRESSOR) injection 2.5 mg 2.5 mg IntraVENous Q6H 0.9% sodium chloride in fusion 100 mL/hr IntraVENous CONTINUOUSREVIEW OF SYSTEMS:Comprehensiv e 14 point ROS was performed and pertinent findings are as notedabove.Objective:VIT ALS:Visit VitalsBP (!) 141/91 (BP 1 Location: Left arm, BP Patient Position: At rest)P ulse 99Temp 99 F (37.2 C)Resp 20Ht 5' 2" (1.575 m)Wt 200 lb (90.7 kg)SpO2 95%BMI 36.58 kg/m Temp (24hrs), Av.8 F (37.1 C), Min:97.6 F (36.4 C), Max:99.2 F ( 37.3 C)PHYSICAL EXAM:General: Alert, cooperative, no distress, appears stated age.Eyes: Conjunctivae clear, anicteric sclerae. Pupils are equalLungs: Clear to auscultation bilaterally. No Wheezing or Rhonchi. No rales.Chest wall: No Access ory muscle use.Heart: Regular rate and rhythm, no murmur, rub or gallop.Abdome n: Soft, distended, mild tenderness to palpation diffusely. No reboundor guard ing.Psych: Good insight. Not depressed. Not anxious or agitated.Neurologic: EOMs intact. No facial asymmetry. No aphasia or slurred speech.Normal strength, Alert an d oriented X 3.LAB DATA REVIEWED:Lab ResultsComponent Value Date/Time Glucose , bedside 185 (H) 01/02/2019 11:38 AMRecent Labs 438 0NA 142 13 6K 3.7 4.0CL 108* 101CO2 27 26BUN 13 14CREA 0.64 0.76GLU 121* 191*CA 8.4* 10.4*ALB -- 4.4WBC 7.9 12.8*HGB 14.4 18.0*HCT 42.3 49.7*PLT 156 210IMAGING RESULTS:Xr Abd ( kub)Result Date: 01/02/2019XR ABD (KUB) PRIOR: None HISTORY: Limited to that provided b y the emergencydepartment at the time of the examination; Patient complaining of ches t pain,abdominal pain with n/v that started yesterday. FINDINGS: An NGT is present andin good position. Mild mid left sided abdominal ileus is identified. No abnorm aldensities are identified. No bowel wall thickening, pneumatosis or free air isid entified in the visualized limited abdomen/upper pelvis. The visualizedosse ous structures are unremarkable for age.IMPRESSION: 1. NGT good position as above. 2. Left midabdomen ileus; noobstruction or free air identified.Xr Abd (ap And Erect Or Decub)Result Date: 01/03/2019EXAM: XR ABD (AP AND ERECT OR D ECUB) INDICATION: SBO vs ileus COMPARISON:01/02/2019 1821 hours. FINDING S: A supine radiograph of the abdomen shows dilatedloops of small bowel measuring up to 4 cm in the left upper quadrant. There isgas in the colon. There are phlebolith s overlying the pelvis.IMPRESSION: There is gas identified in the colon improved fro m prior exam dated01/02/2019 at 1821 hours. There are however aren't dilated loops o f small bowelmeasuring up to 4 cm. Findings may represent a partial SBO or ileus. Co ntinuedfollow-up is suggested.Ct Abd Pelv W ContResult Date: 01/02/2019CT ABDOMEN PEL VIS W/ CONTRAST PRIOR: None HISTORY: Limited to that provided bythe emergency departm ent at the time of the examination; Patient complaining ofchest pain, abdominal pain with n/v that started yesterday.? TECHNICAL FACTORS:Spiral images were obtained from the lung bases to the symphysis pubis duringthe dynamic administration of 100 mL, (from a 100 mL single use vial), ofnon-ionic contrast, (Isovue-300). Or al contrast was utilized for bowelopacification. From the data set sa gittal and coronal reconstruction images werecreated on an independent workstatio n and electronically [facility]. Utilizing inflated pad buffer algorithms the ex amination was performed tooptimize image quality while utilizing the lowest possi ble ionizing radiationdose. One or more of the following doses reduction techniques was used:Decreasing the mA and or kV, automatic exposure control and iterative reconstruction algorithm. LOWER CHEST: Extrathoracic soft tissues: Unremarkable Cardiac base: Unremarkable. Lung bases: Dependent atelectatic changes areidentif ied posteriorly. No infiltrates or effusions are present. ABDOMEN: Liver:Diffuse homo geneous decreased attenuation most consistent with fattyinfiltration. No duct dilatati on, cyst or mass is identified. There is a smallamount of ascites interposed betwee n the right lobe of the liver and diaphragm.Gallbladder: Contracted-multip le gallstones are identified. No gallbladder wallthickening or pericholecystic fluid collections are identified. Spleen:Unremarkable Pancreas: Unremarkab le Stomach/small bowel: Stomach iswell-distended with oral contrast. The re is small bowel dilatation consistentwith an early small bowel obstruction. No wal l thickening or free air isidentified. There is a small amount of free fluid surround ing the distal smallbowel in the RLQ as well as in the left lower quadrant. The termi nal ileum isdecompressed and there is a transition identified of the distal smal lbowel-series 2, #38-50. Colon: Scattered diverticuli are identified of thedistal ascending and transverse portions of the colon. No obstruction isidentified. Mese ntery: No adenopathy or mass is identified. Adrenals:Unremarkable Aorta: Mild ather osclerotic calcification is identified greatestinfrarenal. No aneurysm is prese nt. Retroperitoneum: No adenopathy or mass isidentified. Kidneys: Right: In the in terpolar portion there is awell-circumscribed 1.1 cm low-attenuation mass statisticall y most consistentwith a cyst. The kidney is otherwise unremarkable including its par enchymalenhancement. Left: In the upper polar portion there is a well-circumscri bed 1.3several low-attenuation mass consistent with a cyst. The left kidney, includingits parenchymal enhancement is otherwise unremarkable. PELVIS: Small am ount offree fluid is identified within the cul-de-sac. The uterus is unremarkable. Thebladder is mild to moderately distended. Several phleboliths are identified. Noil iac or inguinal adenopathy is identified. Within the subcutaneous soft tissuesof t he buttocks there are multiple dense coarse calcifications consistent withinjection granulomas. BONE: There is a mild broad C-shaped dextroscolioticcurvature of the lumbar spine. Productive degenerative marginal osteophytes areidentified of mu ltiple thoracic and lumbar vertebral bodies. No lytic, blasticor bony destructive clara nges are identified.IMPRESSION: 1. Findings consistent with small bowel obstruction- withouttransition the distal portion-no free air identified though there is a smallam ount of free fluid within the abdomen and pelvis. 2. Fatty infiltration of thelive r. 3. Cholelithiasis without findings suggesting cholecystitis. 4. Singlerenal cysts. 5. Dextroscoliotic curvature of the lumbar spine. The above waspersonally ca lled to and discussed with Dr. Garner at 1712 hours.Assessment and Plan:53-year-o ld female admitted with abdominal pain and question of small bowelobstruction versu s ileus.CT scan and abdominal x-rays reviewed. Patient with likely partial S NABEEL versusresolving SBO versus ileus. Question as to whether there was an infe ctiousprocess earlier in the week as the patient originally experienced diarrheaC ontributing to the symptoms.- Continue NG tube to low intermittent wall suction.-N .p.o., IV fluid hydration, pain management- We will order Hurricaine spray for throa t discomfort- Mineral oil and milk of magnesia to be administered via NG tube today-Repeat abdominal x-ray in the morning.-No acute surgical intervention. If patient does have partial small bowelobstruction, it is likely due to ad hesions from her prior surgery. Hope is thatthis will resolve with conservative measures as currently ordered.Thank you for allowing me to participate in this patie nts care and please callme on [phone] with questions and concerns Ted Jarquin 201810:10 AM Name Value Range Interpretation Code Description Data Gissell rce(s) Supporting Document(s ) ID Date Data Source [id number] 01/03/2019 10:17:31 AM EDT [facility] Name Value Range Interpretation Description Data Sup porting Code Source(s) Document(s ) Glucose 129 MG/DL 65-110 Above high normal [facility] - [Mass/volume] Community in Blood by Hospital Automated test strip ID Date Data Source [id number] 01/03/2019 09:00:[address] [facility] EXAM: XR ABD (AP AND ERECT OR DECUB)EZEQUIEL CATION: SBO vs ileusCOMPARISON: 01/02/2019 1821 hours.FINDINGS: A supine radiograph of the abdomen shows dilated loops of smallbowelmeasuring up to 4 cm in the le ft upper quadrant. There is gas in the colon.There are phleboliths overlying th e pelvis.IMPRESSION: There is gas identified in the colon improved from prior examdat ed01/02/2019 at 1821 hours. There are however aren't dilated loops of small bowelmeasu ring up to 4 cm. Findings may represent a partial SBO or ileus. Continuedfollow-up is suggested.Signing date/time: 01/03/2019 9:00 AMSigned by: DINORAH CASEY Name Value Range Interpretation Code Description Data Gissell rce(s) Supporting Document(s ) ID Date Data Source [id number] 01/03/2019 07:24:[address] [facility] Bedside and Verbal shift change report didier Mitchell RN (oncoming nurse) Luis ROBERT (offgoing nurse). Report included the fo llowing information SBAR,Kardex, Procedure Summary, Intake/Output and MAR. Name Value Range Interpretation Code Description Data Gissell rce(s) Supporting Document(s ) ID Date Data Source [id number] 01/03/2019 05:40:39 AM EDT [facility] Name Value Range Interpretation Description Data Sup porting Code Source(s) Document(s ) Leukocytes 7.9 K/uL 4.8-10.6 [facility] - [#/volume] in Community Blood by Hospital Automated count Erythrocytes 4.35 4.20-5.4 [facility] - [#/volume] in M/uL 0 Community Blood by Hospital Automated count Hemoglobin 14.4 12.0-16. [facility] - [Mass/volume] in g/dL 0 [facility] Blood Hospital Hematocrit 42.3 % 36.0-47. [facility] - [Volume 0 Community Fraction] of Hospital Blood by Automated count Erythrocyte mean 97.2 FL 81.0-94. Above high normal [facility] - corpuscular 0 Community volume [Entitic Hospital volume] by Automated count Erythrocyte mean 33.1 PG 27.0-35. [facility] - corpuscular 0 [facility] hemoglobin Hospital [Entitic mass] by Automated count Erythrocyte mean 34.0 30.7-37. [facility] - corpuscular g/dL 3 [facility] hemoglobin Hospital concentration [Mass/volume] by Automated count Erythrocyte 13.1 % 11.5-14. [facility] - distribution 0 Community width [Ratio] by Hospital Automated count Platelets 156 K/uL 130-400 [facility] - [#/volume] in Community Blood by Hospital Automated count Platelet mean 10.9 FL 9.2-11.8 [facility] - volume [Entitic Community volume] in Blood Hospital by Automated count Segmented 70 % 48.0-72. [facility] - neutrophils/100 0 Community leukocytes in Hospital Blood Lymphocytes/100 19 % 18.0-40. [facility] - leukocytes in 0 [facility] Blood Hospital Monocytes/100 7 % 2.0-12.0 [facility] - leukocytes in [facility] Blood Hospital Eosinophils/100 4 % 0.0-7.0 [facility] - leukocytes in [facility] Blood Hospital Basophils/100 0 % 0.0-3.0 [facility] - leukocytes in [facility] Blood Hospital Segmented 5.5 K/UL 1.5-6.6 [facility] - neutrophils Community [#/volume] in Hospital Blood Lymphocytes 1.5 K/UL 1.5-3.5 [facility] - [#/volume] in [facility] Blood Hospital Monocytes 0.6 K/UL 0.0-1.0 [facility] - [#/volume] in [facility] Blood Hospital Eosinophils 0.3 K/UL 0.0-0.7 [facility] - [#/volume] in [facility] Blood Hospital Basophils 0.0 K/UL 0.0-0.1 [facility] - [#/volume] in [facility] Differential [facility] - cell count [facility] method Blood Hospital Immature 0 % 0.0-2.0 [facility] - granulocytes/100 [facility] leukocytes in Hospital Blood by Automated count ID Date Data Source [id number] 01/03/2019 05:37:27 AM EDT [facility] Name Value Range Interpretation Description Data Sup porting Code Source(s) Document(s ) Troponin 0.00-0.05 [facility] - I.cardiac Community [Mass/volume Hospital ] in Serum or Plasma (NOTE)The presence of detectable troponi n above the reference rangeindicates myocardial injury which may be due to is chemia,myocarditis, trauma, etc. Clinical correlation is necessary todetermine the significance of this finding. Sequential testing isrecommended to determine if th e typical rise and fall of cTnI isdemonstrated. Note, cardiac troponin-I has a relatively longhalf-life and may be present well after the CK MB has returne d tobaseline. cTnI results in the indeterminate/eugene zone for myocardial infarction: 0.06 to 0.59 ng/mL cTnI cutoff/range of values consistent with m yocardial infarction: 0.60 to 1.50 ng/mL ID Date Data Source [id number] 01/03/2019 05:37:27 AM EDT [facility] Name Value Range Interpretation Description Data Sup porting Code Source(s) Document(s ) Sodium 142 136-145 [facility] - [Moles/volume] mmol/L Community in Serum or Hospital Plasma Potassium 3.7 3.5-5.1 [facility] - [Moles/volume] mmol/L Community in Serum or Hospital Plasma Chloride 108 98-107 Above high normal [facility] - [Moles/volume] mmol/L Community in Serum or Hospital Plasma Carbon 27 21-32 [facility] - dioxide, total mmol/L Community [Moles/volume] Hospital in Serum or Plasma Anion gap in 11 10-20 [facility] - Serum or mmol/L Community Plasma Hospital Glucose 121 74-106 Above high normal [facility] - [Mass/volume] mg/dL Community in Serum or Hospital Plasma Urea nitrogen 13 mg/dL 7-18 [facility] - [Mass/volume] Community in Serum or Hospital Plasma Creatinine 0.64 0.40-1.1 [facility] - [Mass/volume] mg/dL 6 Community in Serum or Hospital Plasma Glomerular >60 [facility] - filtration Community rate/1.73 sq M Hospital predicted among blacks [Volume Rate/Area] in Serum or Plasma by Creatinine-bas ed formula (MDRD) Glomerular >60 [facility] - filtration Community rate/1.73 sq M Hospital predicted among non-blacks [Volume Rate/Area] in Serum or Plasma by Creatinine-bas ed formula (MDRD) Calcium 8.4 8.5-10.1 Below low normal [facility] - [Mass/volume] mg/dL Community in Serum or Hospital Plasma ID Date Data Source [id number] 01/03/2019 12:40:[address] [facility] Problem: Unstable angina/NSTEMI: Day of Admission/Day 1Goal: Off Pathway (Use only if patient is Off Pathway)Outcome: Progress ing Towards GoalGoal: Activity/SafetyOutcome: Progressing Towards GoalProblem: PainGoa l: *Control of PainOutcome: Progressing Towards GoalProblem: Falls - Risk ofGoal : *Absence of FallsDescriptionDocument Enoch Fall Risk and appropriate interventions in the flowsheet.Outcome: Progressing Towards GoalNote:Fall Risk Interventions: Name Value Range Interpretation Code Description Data Gissell rce(s) Supporting Document(s ) ID Date Data Source [id number] 01/03/2019 01:06:06 AM EDT [facility] Name Value Range Interpretation Description Data Sup porting Code Source(s) Document(s ) Cholesterol 211 <200 Above high normal [facility] - [Mass/volume] mg/dL Community in Serum or Hospital Plasma Triglyceride 155 <150 Above high normal [facility] - [Mass/volume] mg/dL Community in Serum or Hospital Plasma Cholesterol in 51 mg/dL >40 [facility] - HDL Community [Mass/volume] Hospital in Serum or Plasma Cholesterol in 129 <100 Above high normal [facility] - LDL MG/DL Community [Mass/volume] Hospital in Serum or Plasma by calculation Cholesterol in 31 MG/DL <38 [facility] - VLDL Community [Mass/volume] Hospital in Serum or Plasma by calculation Cholesterol in 4.1 0.0-4.5 [facility] - HDL/Cholesterol Community .total [Mass Hospital Ratio] in Serum or Plasma ID Date Data Source [id number] 01/03/2019 12:42:05 AM EDT [facility] Name Value Range Interpretation Description Data Sup porting Code Source(s) Document(s ) Troponin 0.00-0.05 [facility]SS - I.cardiac Community [Mass/volume Hospital ] in Serum or Plasma (NOTE)The presence of detectable troponi n above the reference rangeindicates myocardial injury which may be due to is chemia,myocarditis, trauma, etc. Clinical correlation is necessary todetermine the significance of this finding. Sequential testing isrecommended to determine if th e typical rise and fall of cTnI isdemonstrated. Note, cardiac troponin-I has a relatively longhalf-life and may be present well after the CK MB has returne d tobaseline. cTnI results in the indeterminate/eugene zone for myocardial infarction: 0.06 to 0.59 ng/mL cTnI cutoff/range of values consistent with m yocardial infarction: 0.60 to 1.50 ng/mL ID Date Data Source [id number] 01/02/2019 11:22:[address] [facility] Pt received from Er. AXOX$, NSR-sinus ta viktoriya on tele, HR 100-105, asymptomatic.All needed care provided. Continue monitorin g. Name Value Range Interpretation Code Description Data Gissell rce(s) Supporting Document(s ) ID Date Data Source [id number] 01/02/2019 11:02:[address] [facility] TRANSFER - IN REPORT:Verbal report kaitlynni vern from August RN(name) on Verito Velasco being receivedfrom ER(unit) for routine progression of careReport consisted of patient's Situation, Background, Assessm ent andRecommendations(SBAR).Information from the following report(s) SBAR, Kardex, OR Summary andIntake/Output was reviewed with the transfering nurse.Opportunity for qu estions and clarification was provided.Assessment to be completed upon patient's arrival to unit and care assumed. Name Value Range Interpretation Code Description Data Gissell rce(s) Supporting Document(s ) ID Date Data Source [id number] 01/02/2019 10:42:15 PM EDT [facility] [id number] [facility] [address] [facility] [address] [phone]/ Verito Velasco (Female) [id number] E SI 2 ED Dispo:ADMIT Chief Complaint: Abdominal Pain, Chest Pain Diagnosis: SBO (small bowel obstruction) (HCC) [] Current Providers: Attending: Thomas Valencia; Albin Swift Consulting Provider: Vero Pastrana Primary Nurse: Del Gray A Tech: MICHELLE FloresN: [id number] [employer] [id number] - Bs hsi [facility] Med[facility] MrnMRN: [id number] [employer] [phone] - Bsh[facility]va Age SexDOB 1965 AGE 53 SEX Female Primary Care Provider: Samantha Carter MD Xuyiijmli: (No Known Allergi es)Date Reviewed: 01/02/2019Reviewed by: Hartle, Farzana, RN - Review CompleteED Provider Notes: All notesHNO ID: [id number]: Benjamin Garner MDService: Emergency MedicineAuthor Type: PhysicianFiled: [id number] Text:The history is provided by the patient.12:17 PM: Verito Velasco is a 53 y.o. female wi th h/o diabetes andhypertension who presents to the ED c/o diffuse abdominal pain onset 3days ago with asso ciated diarrhea and vomiting. Patient also c/o mildchest pain. Patient states she had a similar episode of curr ent symptoms 7years ago. The patient states at that time she had an abnormal EKG andreports she was given ni troglycerin with resolution of symptoms. No othercomplaints at this time.Past Medical History:Diagnosis Date Diabetes (HCC) diet controlled pre- diabetic Hypertension Trigger finger of left hand 12/08/2013Past Surgic al History:Procedure Laterality Date HX ORTHOPAEDIC right carpal tunnelFamily History:Problem Relation Ag e of Onset Diabetes Mother Heart Disease MotherSocial HistorySocioeconomic History Marital st atus: Spouse name: Not on file Number of children: Not on file Years of education: Not on file H ighest education level: Not on fileOccupational History Not on fileSocial Needs Financial resource str ain: Not on file Food insecurity: Worry: Not on file Inability: Not on file Transportation needs: Medical: Not on file Non-medical: Not on fileTobacco Use Smoking status: Current Every Day Smoker Packs/day: 0.5 0 Years: 20.00 Pack years: 10.00 Smokeless tobacco: Never UsedSubstance and Sexual Activity Alcoh ol use: No Drug use: No Sexual activity: Not Currently Partners: MaleLifestyle Physical activity: Days per week: Not on file Minutes per session: Not on file Stress: Not on fileRelationships Social connections: Talks on phone: Not on file Gets together: Not on file Attends nondenominational service: Not on file Active m ember of club or organization: Not on file Attends meetings of clubs or organizations: Not on file Relations hip status: Not on file Intimate partner violence: Fear of current or ex partner: Not on file Emotionally abu sed: Not on file Physically abused: Not on file Forced sexual activity: Not on fileOther Topics Concer n Not on fileSocial History Narrative Not on fileALLERGIES: Patient has no known allergies.Review of Systems Constitutional: Negative for chills and fever.HENT: Negative for rhinorrhea and sore throat.Eyes: Negativ e for photophobia and visual disturbance.Respiratory: Negative for cough and shortness of breath.Cardiovasc ular: Positive for chest pain (mild). Negative for leg swelling.Gastrointestinal: Positive for abdominal pain (diffuse), diarrhea andvomiting. Negative for nausea.Genitourinary: Negative for dysur ia and hematuria.Musculoskeletal: Negative for back pain and myalgias.Skin: Negative for color change and pallor.Neurological: Negative for seizures and syncope.Vitals: 01/02/19 1132 01/02/19 1540 01/02/19 183 0BP: (!) 134/98 134/71 (!) 145/94Pulse: 99 100 (!) 105Resp: 18 18 20Temp: 97.6 F (36.4 C) 98.9 F (37.2 C)SpO2: 97% 95% 97%Weight: 90.7 kg (200 lb)Height: 5' 2" (1.575 m)11:32 AM Pulse Oximetry reading is 97% on room air, which indicates normaloxygenation per Benjamin Garner MD.Physical ExamConstitutional: She is o riented to person, place, and time. She appearswell-developed and well-nourished. No distress.HENT:Head: N ormocephalic and atraumatic.Eyes: Pupils are equal, round, and reactive to light. EOM are normal.Neck: Neck supp le. No JVD present.Cardiovascular: Normal rate, regular rhythm and normal heart sounds.Pulmonary/Chest: Eff ort normal and breath sounds normal. No respiratorydistress. She has no wheezes. She has no rales.Abdominal: Sof t. She exhibits no distension. There is no rebound and noguarding.Diffusely tender in abdomen, more in upper quadrant bilaterally.Musculoskeletal: Normal range of motion. She exhibits no edema ortenderne ss.Neurological: She is alert and oriented to person, place, and time.Skin: Skin is warm and dry.Psychiat yessenia: She has a normal mood and affect.Nursing note and vitals reviewed.MDMNumber of Diagnoses or Manag ement OptionsSBO (small bowel obstruction) (HCC):Amount and/or Complexity of Data ReviewedClinical lab tests: ordered and reviewedTests in the radiology section of CPT : ordered and reviewedDecide to obtain pre vious medical records or to obtain history fromsomeone other than the patient: yesReview and summarize past me dical records: yesDiscuss the patient with other providers: yesIndependent visualization of images, tracings, or specimens: yesProPascual Barlow Scott, MD, reviewed the patient's past history, allergiesand home medications as documented in the nursing chart.Labs:Recent Results (from the past 12 hour(s))EKG, 1 2 LEAD, INITIAL Collection Time: 01/02/19 11:37 AMResult Value Ref Range Ventricular Rate 102 BPM Atrial Ra te 102 BPM P-R Interval 164 ms QRS Duration 98 ms Q-T Interval 366 ms QTC Calculation (Bezet) 477 ms Calculate d P [place] 68 degrees Calculated R [place] - 67 degrees Calculated T [place] 64 degrees Diagnosis Sinus tachycardiaBiat rial enlargementIncomplete right bundle branch blockLeft anterior fascicular blockPossible Anterolateral i nfarct , age undeterminedAbnormal ECGNo previous ECGs availableGLUCOSE, POC Collection Time: 01/02/19 11:38 AMRe sult Value Ref Range Glucose, bedside 185 (H) 65 - 110 MG/DLCBC WITH AUTOMATED DIFF Collection Time: 01/02/19 12:20 PMResult Value Ref Range WBC 12.8 (H) 4.8 - 10.6 K/uL RBC 5.29 4.20 - 5.40 M/uL HGB 18.0 (H) 12.0 - 16. 0 g/dL HCT 49.7 (H) 36.0 - 47.0 % MCV 94.0 81.0 - 94.0 FL MCH 34.0 27.0 - 35.0 PG MCHC 36.2 30.7 - 37.3 g/dL RDW 12.7 11.5 - 14.0 % PLATELET 210 130 - 400 K/uL MPV 11.9 (H) 9.2 - 11.8 FL NEUTROPHILS 85 (H) 48.0 - 72.0 % LYMP HOCYTES 11 (L) 18.0 - 40.0 % MONOCYTES 3 2.0 - 12.0 % EOSINOPHILS 1 0.0 - 7.0 % BASOPHILS 0 0.0 - 3.0 % ABS. NATALEE TROPHILS 10.9 (H) 1.5 - 6.6 K/UL ABS. LYMPHOCYTES 1.3 (L) 1.5 - 3.5 K/UL ABS. MONOCYTES 0.4 0.0 - 1.0 K/UL A BS. EOSINOPHILS 0.1 0.0 - 0.7 K/UL ABS. BASOPHILS 0.0 0.0 - 0.1 K/UL DF AUTOMATED IMMATURE GRANULOCYTES 0 0.0 - 2.0 %METABOLIC PANEL, COMPREHENSIVE Collection Time: 01/02/19 12:20 PMResult Value Ref Range Sodium 136 136 - 145 mmol/L Potassium 4.0 3.5 - 5.1 mmol/L Chloride 101 98 - 107 mmol/L CO2 26 21 - 32 mmol/L Anion gap 1 4 10 - 20 mmol/L Glucose 191 (H) 74 - 106 mg/dL BUN 14 7 - 18 mg/dL Creatinine 0.76 0.40 - 1.16 mg/dL GFR es t AA >60 >60 ml/min/1.73m2 GFR est non- AA >60 >60 ml/min/1.73m2 Calcium 10.4 (H) 8.5 - 10.1 mg/dL Bilirubin, tot al 1.0 0.2 - 1.0 mg/dL ALT (SGPT) 43 13 - 61 U/L AST (SGOT) 19 15 - 37 U/L Alk. phosphatase 109 45 - 117 U/L Pr otein, total 8.2 6.4 - 8.2 g/dL Albumin 4.4 3.5 - 4.7 g/dL Globulin 3.8 1.7 - 4.7 g/dL A-G Ratio 1.1 0.7 - 2.8LI PASE Collection Time: 01/02/19 12:20 PMResult Value Ref Range Lipase 60 (L) 73 - 393 U/LTROPONIN I Collection Ti me: 01/02/19 12:20 PMResult Value Ref Range Troponin-I, Qt. <0.02 0.00 - 0.05 NG/MLURINALYSIS W/ RFLX MICROSCOP IC Collection Time: 08/15/19 1:52 PMResult Value Ref Range Color DARK YELLOW (A) YEL Appearance CLEAR CLEAR Sp ecific gravity 1.031 (H) 1.003 - 1.030 pH (UA) 5.5 4.6 - 8.0 Protein 30 (A) NEG mg/dL Glucose NEGATIVE NEG mg/d L Ketone 5 (A) NEG mg/dL Bilirubin NEGATIVE NEG Blood NEGATIVE NEG Urobilinogen 1.0 0.2 - 1.0 EU/dL Nitrite s NEGATIVE NEG Leukocyte Esterase NEGATIVE NEG WBC 0-3 0 - 5 /hpf RBC 0-3 0 - 3 /hpf Epithelial cells 20-50 0 - 10 /hpf Bacteria FEW (A) NONE /hpf Casts 0-3 (A) NONE /lpf Crystals, urine NONE NONE /LPFEKG: Sinus tachycard ia at a rate of 102 BPM. No acute changes.Interpreted by Benjamin Garner, MDRadiology:CT Results (Last 48 hours) 01/02/[address] ABD PELV W CONT Final result Impression: IMPRESSION:1. Findings consistent with s mall bowel obstruction-without transition thedistal portion-no free air identified though there is a small amoun t offreefluid within the abdomen and pelvis.2. Fatty infiltration of the liver.3. Cholelithiasis without find ings suggesting cholecystitis.4. Single renal cysts.5. Dextroscoliotic curvature of the lumbar spine.The above was personally called to and discussed with Dr. Garner [id number]. Narrative: CT ABDOMEN PELVIS W/ CONTRAS TPRIOR: NoneHISTORY: Limited to that provided by the emergency department at the timeof theexamination; Patient complaining of chest pain, abdominal pain with n/vthatstarted yesterday.?TECHNICAL FACTORS: Spiral patrica ges were obtained from the lung bases to thesymphysis pubis during the dynamic administration of 100 mL, (from a 100mLsingle use vial), of non-ionic contrast, (Isovue-300). Oral contrast wasutilized for bowel opacifica tion. From the data set sagittal and coronalreconstruction images were created on an independent workstation an delectronically transmitted to the PACS. Utilizing inflated pad buffer algorithmstheexamination was performed t o optimize image quality while utilizing thelowestpossible ionizing radiation dose. One or more of the foll owing dosesreductiontechniques was used: Decreasing the mA and or kV, automatic exposurecontrol anditerative r econstruction algorithm.LOWER CHEST:Extrathoracic soft tissues: UnremarkableCardiac base: Unremarkable.L cynthia bases: Dependent atelectatic changes are identified posteriorly. Noinfiltrates or effusions are present.A BDOMEN:Liver: Diffuse homogeneous decreased attenuation most consistent withfattyinfiltration. No duct dilatatio n, cyst or mass is identified. There is asmallamount of ascites interposed between the right lobe of the liver anddiaphragm.Gallbladder: Contracted-multiple gallstones are identified. No gallbladderwallthickening or pericholecystic fluid collections are identified.Spleen: UnremarkablePancreas: UnremarkableStomac h/small bowel: Stomach is well-distended with oral contrast. Thereissmall bowel dilatation consistent with an early small bowel obstruction.No wallthickening or free air is identified. There is a small amount of f reefluidsurrounding the distal small bowel in the RLQ as well as in the left lowerquadrant. The terminal ileum i s decompressed and there is a transitionidentified of the distal small bowel-series 2, #38-50.Colon: Scattered diverticuli are identified of the distal ascending andtransverse portions of the colon. No obstruction is identified.Mesentery: No adenopathy or mass is identified.Adrenals: UnremarkableAorta: Mild atherosclerotic calcification is identified greatestinfrarenal. Noaneurysm is present.Retroperitoneum: No adenopathy o r mass is identified.Kidneys:Right: In the interpolar portion there is a well-circumscribed 1.1 cmlow-attenuati on mass statistically most consistent with a cyst. The kidneyisotherwise unremarkable including its parenchymal enhancement.Left: In the upper polar portion there is a well-circumscribed 1.3severallow-atten uation mass consistent with a cyst. The left kidney, includingitsparenchymal enhancement is o therwise unremarkable.PELVIS:Small amount of free fluid is identified within the cul-de-sac. The uterusisunrem arkable. The bladder is mild to moderately distended. Severalphlebolithsare identified. No barry ac or inguinal adenopathy is identified.Within the subcutaneous soft tissues of the buttocks there are multip ledensecoarse calcifications consistent with injection granulomas.BONE:There is a mild broad C- shaped dextroscoliotic curvature of the lumbarspine.Productive degenerative marginal osteophytes are id entified of multiplethoracicand lumbar vertebral bodies. No lytic, blastic or bony destructive changesareid entified.Radiology interpretation reviewed by Benjamin Garner MD<EMERGENCY DEPARTMENT CASE SUMMARY>ED Course:53 y.o. female presented to the ED c/o abdominal pain with associateddiarrhea and vomiting. Patient also c/o mild chest pain. Order EKG, labs,and CT abd/pelv. Give Zofran, Pepcid, and IV fluids.Labs and r adiology results reviewed.5:14 PM Case presentations and findings discussed with Dr. Crystal(Urology) who leans towards admission.5:18 PM Case presentations and findings discussed with Dr. Lama(Hospitalist) who agrees to admit the patient. Patient was reassessedprior to disposition. Discussed results, diagnosi s and treatment plan.Patient's questions were answered. Patient agrees with plan to admit.5:51 PM Case presenta tions and findings discussed with Dr. Pastrana(General Surgery) who agrees to see the patient in consult.6:0 4 PM NG tube placed by me after instillation of viscous lidocaine.Order KUB to confirm placement.KUB results rev iewed.Final Impression/Diagnosis:Encounter Diagnoses ICD-10-CM ICD-9-CM1. SBO (small bowel obstruction) ([facility]) K56.609 560.9Patient condition at time of disposition: StableI have reviewed the following home medicat ions:Prior to Admission medicationsMedication Sig Start Date End Date Taking? Authorizing Provideratorvastatin (LIPITOR) 10 mg tablet Take 10 mg by mouth daily.Provider, Historicalmetformin (GLUCOPHAGE) 500 mg tablet Take 500 mg by mouth daily.Provider, Historicalmetoprolol (LOPRESSOR) 50 mg tablet Take 100 mg by mouth daily.Indications: HYPERTENSION Provider, HistoricalOTHER Take by mouth daily. Vitamin D, Calcium, fib er, Vitamin B12 (allOTC) Provider, Benjamin Greer MD I, Anya Arriola, am serving as a scribe to document servicespersonally performed by Benjamin Garner MD based on my observation andthe provider's stat ements to me.I, Benjamin Garner MD, attest that the person(s) noted above, acting asmy scribe(s) noted above , has observed my performance of the services andhas documented them in accordance with my direction. I have per sonallyreviewed the above information and have ordered and reviewed thediagnostic studies, unless otherwise noted.ED Orders [id number] EKG, 12 LEAD, INITIAL [#[id number]] Priority: STAT Class: H ospital Performed Standing Order Information Remaining Occurrences:0/1 Interval:ONE TI ME Last released:01/02/2019 Released orders: SunJan 02, 2019 11:40 AM by: SANJIV HANKINS Reason for Exam: -> chest and abdominal pain [id number] EKG, 12 LEAD, INITIAL [#[id number]] Priority: STAT Class: Hospital Performed Specimen Collected: 01/02/2019 11:37 AM Resulting Agency: [facility] Test ID: [id number] Reason for Exam: -> chest and abdominal pain Released on: 01/02/2019 11:40 AM [id number] EKG, 12 LEAD, INITIAL [#[id number]] Priority: STAT Class: Hospital Performe d Standing Order Information Remaining Occurrences:0/1 Interval:ONE TIME Last released:0 01/02/2019 Released orders: SunJan 02, 2019 12:22 PM by: BENJAMIN GARNER Comment:Repeat EKG e very 15 minutes while pain persists and every 2 hours thereafter. Repeat immediately if sympto ms return. Reason for Exam: -> chest pain [id number] EKG, 12 LEAD, INITIAL [#[id number]] Priority: STAT Class: Hospital Performed Resulting Agency: [facility] Test ID: [id number] Comment:Repeat EKG e very 15 minutes while pain persists and every 2 hours thereafter. Repeat immediately if sympto ms return. Reason for Exam: -> chest pain Released on: 01/02/2019 12:22 PM [id number] GLUCOSE, P OC [#[id number]] Priority: Routine Class: ER Collect Resulting Agency: [facility] Test ID: BGG Standing Order Information Remaining Occurrences:0/1 Release d orders: SunJan 02, 2019 11:38 AM by: Automatic Batch Process [id number] GLUCOSE, POC [#[id number]] Priority: Routine Class: ER Collect Specimen Source: Whole Blood Specimen C ollected: 01/02/2019 11:38 AM Resulting Agency: [facility] Test ID: [id number] Com ment:Ordered by an unspecified provider Released on: 01/02/2019 11:38 AM [id number] CBC WITH AUTOMATED DI FF [#[id number]] Priority: STAT Class: ER Collect Standing Order Information Remainin g Occurrences:0/1 Interval:ONE TIME Last released:01/02/2019 Released orders : SunJan 02, 2019 12:22 PM by: BENJAMIN GARNER [id number] METABOLIC PANEL, COMPREHENSIVE [# [id number]] Priority: STAT Class: ER Collect Standing Order Information Remaining Occurrences:0 /1 Interval:ONE TIME Last released:01/02/2019 Released orders: SunJan 02, 2019 12:22 PM by: BENJAMIN GARNER [id number] LIPASE [#[id number]] Priority: STAT Class: ER Collect Standing Order Information Remaining Occurrences:0/1 Interval:ONE TI ME Last released:01/02/2019 Released orders: SunJan 02, 2019 12:22 PM by: LAURA GARNER [id number] URINALYSIS W/ RFLX MICROSCOPIC [#[id number]] Priority: STAT Class: ER Collect Sta nding Order Information Remaining Occurrences:0/1 Interval:ONE TIME Last released:0 01/02/2019 Released orders: SunJan 02, 2019 12:22 PM by: BENJAMIN GARNER [id number] TROPONIN I [#[id number]] Priority: STAT Class: ER Collect Standing Order Information Remaining Occurrences:0/1 Interval:ONE TIME Last released:01/02/2019 Released orders : SunJan 02, 2019 12:22 PM by: BENJAMIN GARNER [id number] CBC WITH AUTOMATED DIFF [# [id number]] Priority: STAT Class: ER Collect Specimen Source: Whole Blood Specimen Collected: 01/02/2019 12 :20 PM Resulting Agency: [facility] Test ID: [id number] Released on: 01/02/2019 12:22 PM [id number] METABOLIC PANEL, COMPREHENSIVE [#[id number]] Priority: STAT Class: ER Collect Speci men Source: Plasma Specimen Collected: 01/02/2019 12:20 PM Resulting Agency: [facility] RY Test ID: MPL Released on: 01/02/2019 12:22 PM [id number] LIPASE [#[id number] ] Priority: STAT Class: ER Collect Specimen Source: Plasma Specimen Collected: 01/02/2019 12:20 PM Resulting Agency: [facility] Test ID: [id number] Released on: 01/02/2019 12:22 PM [id number] URINALYSIS W/ RFLX MICROSCOPIC [#[id number]] Priority: STAT Class: ER Collect Specimen Source : Urine Specimen Collected: 01/02/2019 1:52 PM Resulting Agency: [facility] Test ID: [id number] Released on: 01/02/2019 12:22 PM [id number] TROPONIN I [#[id number]] Prio rity: STAT Class: ER Collect Specimen Source: Plasma Specimen Collected: 01/02/2019 12:20 PM Resultin g Agency: [facility] Test ID: TROIP Released on: 01/02/2019 12:22 PM [id number] METABOLIC PANEL, BASIC [#[id number]] Priority: Routine Class: ER Collect Standing O rder Information Remaining Occurrences:3/3 Interval:DAILY [id number] CBC WITH AUTOMATED DIFF [#[id number]] Priority: Routine Class: ER Collect Standing Order Information Remainin g Occurrences:3/3 Interval:DAILY [id number] TROPONIN I [#[id number]] Priori ty: STAT Class: ER Collect Standing Order Information Remaining Occurrences:2/3 Inter gume:EVERY 6 HRS Last released:01/02/2019 Released orders: SunJan 02, 2019 9:46 PM by: BANDAR MILTON [id number] LIPID PANEL [#[id number]] Priority: STAT Class: E R Collect Standing Order Information Remaining Occurrences:0/1 Interval:ONE TIME Last re leased:01/02/2019 Released orders: SunJan 02, 2019 9:46 PM by: BANDAR SWIFT [id number] TRO PONIN I [#[id number]] Priority: STAT Class: ER Collect Resulting Agency: [facility] Test ID: TROIP Released on: 01/02/2019 9:46 PM [id number] LIPID PANE L [#[id number]] Priority: STAT Class: ER Collect Resulting Agency: [facility] Test ID: [id number] Released on: 01/02/2019 9:[id number] ABD PELV W CONT [#[id number]] Priority: STAT Class: Hospital Performed Standing Order Information Remainin g Occurrences:0/1 Interval:ONE TIME Last released:01/02/2019 Released orders : SunJan 02, 2019 12:22 PM by: BENJAMIN GARNER This order utilizes IV contrast. What additi onal contrast is needed? -> Per Rad- iol- ogi- st Pro- richa- ol [id number] CT ABD PELV W CONT [#[id number]] Priority: STAT Class: Hospital Performed Specimen C ollected: 01/02/2019 4:59 PM Resulting Agency: [facility] Test ID: [id number] This order utilizes IV contrast. What additional contrast is needed? -> Per Rad- iol- ogi- st Pro- richa- ol Released on: 01/02/2019 12:22 PM [id number] XR ABD (KUB) [#[id number]] Priority: STAT Class: Hospital Performed Standing Order Information Remaining Occurrences:0 /1 Interval:ONE TIME Last released:01/02/2019 Released orders: Alice Jan 02, 2019 6:04 PM by: BENJAMIN GARNER Reason for Exam -> confirm tube position [id number] XR ABD (KUB) [#[id number]] Priority: STAT Class: Hospital Performed Specimen Collected: 019 6:28 PM Resulting Agency: [facility] Test ID: [id number] Reason for Exam -> confirm tube position Released on: 01/02/2019 6:04 PM DIATRIZOATE MEGLUMINE & SODIUM 66 %-* [#[id number]] Priority: STAT Class: Normal SODIUM CHLORIDE 0.9 % IV [#[id number]] Priority: STAT Class: N ormal FAMOTIDINE (PF) 20 MG/2 ML IV [#[id number]] Priority: STAT Class: Normal H2RA INDICATION -> Gastritis ONDANSETRON (PF) 4 MG/2 ML INJECTION [#[id number]] Priority: STAT Class: N ormal IOPAMIDOL 61 % IV SOLN [#[id number]] Priority: STAT Class: Normal lidocaine (XYLOCAINE) 2 % viscous so* [#[id number]] Priority: None LIDOCAINE 2 % MUCOSAL SOLN [#[id number]] Priority: STAT Class: Normal ACETAMINOPHEN 325 MG TABLET [# [id number]] Priority: STAT Class: Normal HYDROCODONE-ACETAMINOPHEN 5 MG-325 M* [# [id number]] Priority: STAT Class: Normal HYDROMORPHONE (PF) 1 MG/ML IJ SOLN [#[id number]] Priority: STAT Class: Normal DIPHENHYDRAMINE 25 MG CAP [#[id number]] Priority: STAT Cl ass: Normal ONDANSETRON (PF) 4 MG/2 ML INJECTION [#[id number]] Priority: STAT Class: N ormal MAGNESIUM HYDROXIDE 400 MG/5 ML ORAL* [#[id number]] Priority: STAT Class: Normal HEPARIN (PORCINE) 5,000 UNIT/ML IJ S* [#[id number]] Priority: STAT Class: Normal INSULIN LISPRO 1 00 UNIT/ML INJECTION [#[id number]] Priority: STAT Class: Normal DEXTROSE 40 % ORAL GEL [#[id number]] Priority: STAT Class: Normal GLUCAGON 1 MG INJECTION [#[id number]] Priority: STAT Class: Normal DEXTROSE 50% IN WATER (D50W) IV SYRG [#[id number]] Priority: STAT Class: Normal METOPROLOL TARTRATE 5 MG/5 ML IV SOLN [#[id number]] Priority: STAT Class: N ormal SODIUM CHLORIDE 0.9 % IV [#[id number]] Priority: STAT Class: Normal CON4 IP CONSULT TO GENERAL SURGERY [#[id number]] Priority: STAT Class: Hospital Performed Standing Or dayami Information Remaining Occurrences:0/1 Interval:ONE TIME Last released:01/02/2019 Released orders: Alice Jan 02, 2019 5:18 PM by: BENJAMIN GARNER Reason for Consult: -> consul t on-call surgery Did you call or speak to the consulting provider? -> No Consult To -> on-ca ll surgery CON4 IP CONSULT TO GENERAL SURGERY [#[id number]] Priority: STAT Class: Hospital Perfo rmed Comment:Dr Garner spoke to Dr. Pastrana @175 -Selenanavdeep Mcduffie 01/02/19 Reason for Cons ult: -> consult on-call surgery Did you call or speak to the consulting provider? -> No Consult To -> on-call surgery Released on: 01/02/2019 5:18 PM [id number] NG TUBE, INSERTION [#[id number]] Priority: STAT Class: Hospital Performed Standing Order Information Remaining Occurrences:0 /1 Interval:ONE TIME Last released:01/02/2019 Released orders: SunJan 02, 2019 5:19 PM by: BENJAMIN GARNER [id number] NG TUBE, INSERTION [#[id number]] Priority: STAT Class: Hospital Performed Released on: 01/02/2019 5:19 PM [id number] VITAL SIGNS [#[id number]] Priority: Timed Class: Hospital Performed Standing Order Information Remainin g Occurrences:0/1 Interval:CONTINUOUS Last released:01/02/2019 Released orders : SunJan 02, 2019 9:44 PM by: BANDAR SWIFT [id number] BEDREST, COMPLETE [# [id number]] Priority: Routine Class: Hospital Performed Standing Order Information Remaining Occurre nces:0/1 Interval:CONTINUOUS Last released:01/02/2019 Released orders: SunJan 02, 019 9:44 PM by: BANDAR [id number] APPLY/MAINTAIN SEQUENTIAL COMPRESSIO* [#[id number]] P riority: STAT Class: Hospital Performed Standing Order Information Remaining Occurrences:0/1 I nterval:CONTINUOUS Last released:01/02/2019 Released orders: SunJan 02, 2019 9:44 PM by: BANDAR SWIFT [id number] VITAL SIGNS [#[id number]] Priority: Timed Class: Hospital Performed Released on: 01/02/2019 9:44 PM [id number] BEDREST, COMPLETE [# [id number]] Priority: Routine Class: Hospital Performed Released on: 01/02/2019 9:44 PM [id number] APPLY/ MAINTAIN SEQUENTIAL COMPRESSIO* [#[id number]] Priority: STAT Class: Hospital Performed Released on: 01/02 9:44 PM [id number] NURSING-MISCELLANEOUS: [#[id number]] Priority: STAT Class: H ospital Performed Standing Order Information Remaining Occurrences:0/1 Interval:CONTIN UOUS Last released:01/02/2019 Released orders: SunJan 02, 2019 9:44 PM by: DANG SWIFT Description of Order: -> Initiate Hypoglycemia protocol if blood glucose is less than 70 mg/dL [id number] NURSING-MISCELLANEOUS: [#[id number]] Priority: STAT Class: H ospital Performed Standing Order Information Remaining Occurrences:0/1 Interval:CONTIN UOUS Last released:01/02/2019 Released orders: SunJan 02, 2019 9:44 PM by: DANG SWIFT Description of Order: -> FOR CONSCIOUS PATIENT: Administer 4 ounces fruit juice OR regular soda OR 15 grams dextrose 40% oral gel. [id number] NURSING-MISCELLANE OUS: [#[id number]] Priority: STAT Class: Hospital Performed Standing Order Information Remaining Occurrences:0/1 Interval:CONTINUOUS Last released:01/02/2019 Released orders : SunJan 02, 2019 9:44 PM by: BANDAR SWIFT Description of Order: -> FOR UNCONSCIOUS OR MBGBIV-WT-XDHXQK-STATUS PATIENT: If blood glucose is greater than or equal to 50 administer 25 mL of 50% dextrose solution IV p ush, if blood glucose is less than 50, administer 50 mL IV push. If no IV, administer Glucagon 1 mg IM. [id number] NURSING-MISCELLANEOUS: [# [id number]] Priority: STAT Class: Hospital Performed Standing Order Information Remaining Occurre nces:0/1 Interval:CONTINUOUS Last released:01/02/2019 Released orders: SunJan 02 9:44 PM by: BANDAR SWIFT Description of Order: -> Repeat finger stick blood glucose in 15 minutes AFTER treatment, if less than 80 mg/dL repeat hypoglycemic protocol and notify provider. [id number] NURSING-MISCELLANEOUS: [# [id number]] Priority: STAT Class: Hospital Performed Standing Order Information Remaining Occurre nces:0/1 Interval:CONTINUOUS Last released:01/02/2019 Released orders: SunJan 02 9:44 PM by: BANDAR SWIFT Description of Order: -> Following Hypoglycemic Protocol: Once pa tient is fully alert and BG greater than or equal to 80 m g/dL, provide a small snack. If NPO consider IV fluids with dextrose. [id number] NURS ING-MISCELLANEOUS: [#[id number]] Priority: STAT Class: Hospital Performed Standing Or dayami Information Remaining Occurrences:0/1 Interval:CONTINUOUS Last released :01/02/2019 Released orders: SunJan 02, 2019 9:44 PM by: MAHGOUB, HATEM A Description of Order: -> Document all interventions in the Electronic Medical Record (EMR). [id number] NURSING-MISCELLANEOUS: [#[id number]] Priority: STAT Class: Hospital Performed Stand ing Order Information Remaining Occurrences:0/1 Interval:CONTINUOUS Last released :01/02/2019 Released orders: Alice Jan 02, 2019 9:44 PM by: BANDAR SWIFT Description of Order: -> Blood glucose targets -- ICU: 140 - 180 mg/dL; NON-ICU: 100 - 180 mg/dL N [id number] NURSING-MISCELLANEOUS: [#[id number]] Priority: STAT Class: Hospital Performed Shailesh cription of Order: -> Initiate Hypoglycemia protocol if blood glucose is less than 70 mg/dL Released on: 01/02/2019 9:44 PM [id number] NURSING-MISCELLANEOUS: [# [id number]] Priority: STAT Class: Hospital Performed Description of Order: -> FOR CONSCIOUS P ATIENT: Administer 4 ounces fruit juice OR regular soda OR 15 grams dextrose 40% or al gel. Released on: 01/02/2019 9:44 PM [id number] NURSING-MISCELLANEOUS: [#[id number]] Priority: STAT Class: Hospital Performed Description of Order: -> FOR UNCONSCIOUS OR HJFOEY-GC-LMTZFX-STATUS PATIENT: If blood glucose is greater than or equal to 50 administer 25 mL of 50% dextrose solution IV p ush, if blood glucose is less than 50, administer 50 mL IV push. If no IV, administer Glucagon 1 mg IM. Released on: 01/02/2019 9:44 PM [id number] NURSING-KS SCELLANEOUS: [#[id number]] Priority: STAT Class: Hospital Performed Description of O rder: -> Repeat finger stick blood glucose in 15 minutes AFTER treatment, if less nisreen n 80 mg/dL repeat hypoglycemic protocol and notify provider. Released on: 019 9:44 PM [id number] NURSING-MISCELLANEOUS: [#[id number]] Priority: STAT Class: H ospital Performed Description of Order: -> Following Hypoglycemic Protocol: Once patient is fully alert and BG greater than or equal to 80 mg/dL, provide a small sn ack. If NPO consider IV fluids with dextrose. Released on: 01/02/2019 9: 44 PM [id number] NURSING-MISCELLANEOUS: [#[id number]] Priority: STAT Class: Hospital Performe d Description of Order: -> Document all interventions in the Electronic Me dical Record (EMR). Released on: 01/02/2019 9:44 PM [id number] NURSING-MISCELLANEOUS: [# [id number]] Priority: STAT Class: Hospital Performed Description of Order: -> Blood glucose t argets -- ICU: 140 - 180 mg/dL; NON-ICU: 100 - 180 mg/dL Released on: 01/02/2019 9:44 PM [id number] CARDIAC MONITORING [#[id number]] Priority: STAT Class: Hospital Performe d Standing Order Information Remaining Occurrences:0/1 Interval:Expires 48 hours Last re leased:01/02/2019 Released orders: SunJan 02, 2019 9:46 PM by: BANDAR SWIFT Type: -> Remote Telemetry [id number] CARDIAC MONITORING [#[id number]] Priority: STAT Class: H ospital Performed Type: -> Remote Telemetry Released on: 01/02/2019 9:46 PM COD2 FULL CODE [#[id number]] Priority: Routine Class: Hospital Performed Standing Order Inf ormation Remaining Occurrences:0/1 Interval:CONTINUOUS Last released:01/02/2019 Releas ed orders: SunJan 02, 2019 9:44 PM by: BANDAR SWIFT COD2 FULL CODE [#[id number]] Priority: Routine Class: Hospital Performed Released on: 01/02/2019 9:44 PM [id number] INITIAL PHYSICIAN ORDER: INPATIENT [#[id number]] Priority: Routine Class: ADT Pend Transfer Sta nding Order Information Remaining Occurrences:0/1 Interval:ONE TIME Last released:0 01/02/2019 Released orders: SunJan 02, 2019 9:44 PM by: BANDAR SWIFT Status: -> INPATIE NT Inpatient Hospitalization Certified Necessary for the Following Reasons -> 3- . P- a- t- i - e- n- t r- e- c- e- i- v- i- n- g t- r- e- a- t- m- e- n- t t- h- a- t c- a- n o- n- l- y b- e p- r- o- v- i- d- e- d i- n a- n i- n- p- a- t- i- e- n- t s- e- t- t- i- n- g (- f- u- r- t- h- e- r c- l- a- r- i- f- i- c- a- t- i- o- n i- n H- &- P d- o- c- u- m- e- n- t- a- t- i- o- n- ) Admitting Diagnos is -> SBO (small bowel obstruction) (HCC) Admitting Physician -> BANDAR SWIFT Attending Physicia n -> BANDAR SWIFT Estimated Length of Stay -> 3-4 Midnights Discharge Plan: -> Home with Office Fo llow-up [id number] INITIAL PHYSICIAN ORDER: INPATIENT [#[id number]] Priority: Routine Class: ADT Pend Trans ancelmo Status: -> INPATIENT Inpatient Hospitalization Certified Necessary for the Following Reasons -> 3- . P- a- t- i- e- n- t r- e- c- e- i- v- i- n- g t- r- e- a- t- m- e- n- t t- h- a- t c- a- n o- n- l- y b- e p- r- o- v- i- d- e- d i- n a- n i- n- p- a- t- i- e- n- t s- e- t- t- i- n- g (- f- u- r- t- h- e- r c- l- a- r- i- f- i- c- a- t- i- o- n i- n H- &- P d- o- c- u- m- e- n- t- a- t- i- o- n- ) Admitting Diagnosis -> SBO (small bowel obstruction) (HCC) Admitting Physician -> BANDAR ROBERTSON Attending Physician -> BANDAR SWIFT Estimated Length of Stay -> 3-4 Midnights Dis charge Plan: -> Home with Office Follow- up Released on: 01/02/2019 9:44 PM [id number] DIET NPO [#[id number]] Priority: STAT Class: Hospital Performed Standing Order Information Remaining Occurrences:0/1 Interval:DIET EFFECTIVE NOW Last released:01/02/2019 Release d orders: SunJan 02, 2019 9:44 PM by: BANDAR SWIFT [id number] DIET NPO [#[id number]] Priority: STAT Class: Hospital Performed Released on: 01/02/2019 9:44 PM ADT7 TRANSFER PATIENT [#[id number]] Priority: STAT Class: Hospital Performed Standing O rder Information Remaining Occurrences:0/1 Interval:ONE TIME Last released:01/02/2019 Released orders: SunJan 02, 2019 9:46 PM by: BANDAR SWIFT ADT7 TRANSFER PATIENT [#[id number]] Priority: STAT Class: Hospital Performed Released on: 01/02/2019 9: 46 PM [id number] 2D ECHO COMPLETE ADULT (TTE) W OR WO* [#[id number]] Priority: Routine Class: Hospital Perfo rmed Standing Order Information Remaining Occurrences:0/1 Interval:ONE TIME Last release d:01/02/2019 Released orders: SunJan 02, 2019 9:46 PM by: BANDAR SWIFT Echo Contrast Question -> Yes [id number] 2D ECHO COMPLETE ADULT (TTE) W OR WO* [#[id number]] Priority: Routine Class : Hospital Performed Resulting Agency: [facility] Test ID: [id number] Echo Contrast Question -> Yes Release d on: 01/02/2019 9:46 PM CON43 IP CONSULT TO CARDIOLOGY [#[id number]] Priority: STAT Class: Hospital Performed Standing Order Information Remaining Occurrences:0/1 Interval:ONE TI ME Last released:01/02/2019 Released orders: SunJan 02, 2019 9:46 PM by: BANDAR SWIFT Reason for Consult: -> chest pain Did you call or speak to the consulting provider? -> No Cons ult To -> Enriqueta CON43 IP CONSULT TO CARDIOLOGY [#[id number]] Priority: STAT Class: H ospital Performed Reason for Consult: -> chest pain Did you call or speak to the consulting provider ? -> No Consult To -> Enriqueta Released on: 01/02/2019 9:46 JohnVerito richmond MR#: [id number] * Rm: 371- 01Ht: 5' 2" Wt: 200 lb Code: Full Code Iso:Diagnosis:SBO ( small bowel obstruction) ([facility]) [K56.609]Allergies: No Known Allergies -------- Current as of: 01/02/192241 GI=Given IC=IV Complet ed NB=New Bag --ketorolac (TORADOL) injection 15 mg # [id number] Admin Amount: 0.5 mL = 15 mg of 30 mg/mL Ordered Dose: 15 mg Route: IntraVENous Freq: PRIOR TO DISCHARGE Start Date: 12/08/13 No administration times (back 96 hours, ahe ad 96 hours). ------ceFAZolin (ANCEF) 1 g in 0.9% sodium chloride (MBP/ADV) 50 mL MBP #[id number] Admin Amount: 1 g Ordered Dose: 1 g Route: IntraVENous Freq: ONCE Start Date: 05/26/15 Rate: 100 mL/hr Duration: 30 Minutes No administration times (back 96 hours, ahead 96 hours). ------diatrizoate sari-diatrizoat sod ([place]MAN[place]STR[place],GASTRO GRAMARY) 66-10 % *#[id number] Admin Amount: 30 mL Ordered Dose: 30 mL Route: Oral Freq: RAD O NCE Start Date: 01/02/19 Administration times (back 96 hours, ahead 96 hours): 01/02/19: 1231GI -----0.9% sodium chloride infusion 1,000 mL #[id number] Admin Amount: 1,000 mL Ordered Dose: 1,000 mL Route: IntraVENous Freq: NOW Start Date: 01/02/19 Rate: 1,000 mL/hr Duration: Administration times ( back 96 hours, ahead 96 hours): 01/02/19: 1230NB 1520IC -----famotidine (PF) (PEPCID) injection 20 mg #[id number] Admin Amount: 20 mg Ordered Dose: 20 mg Route: IntraVENous Freq: NOW Start Date: 01/02/19 Administration times (back 96 hours, ahead 96 hours): 01/02/19: 1230GI -----ondansetron (ZOFRAN) injection 4 mg #[id number] Admin Amount: 2 mL = 4 mg of 4 mg/2 mL Ordered Dose: 4 mg Route: Int raVENous Freq: NOW Start Date: 01/02/19 Administration times (back 96 hours, ahe ad 96 hours): 01/02/19: 123Verito Baxter MR#: [id number] * Rm: 371-01H t: 5' 2" Wt: 200 lb Code: Full Code Iso:Diagnosis:SBO (small bowel obstruction) ([facility]) [K56.609 ]Allergies: No Known Allergies -------- Current as of: 01/02/192 GI=Given IC=IV Complet ed NB=New Bag --iopamidol (ISOVUE 300) 61 % contrast injection 100 mL #[id number] Admin Amount: 100 mL Ordered Dose: 100 mL Route: IntraVENous Freq: RAD ONCE Start Date: 01/02/19 Administration times (back 96 hours, ahead 96 hours): 01/02/19: 1623GI -----lidocaine (XYLOCAINE) 2 % viscous solution 15 mL #[id number] Admin Amount: 15 mL Ordered Dose: 15 mL Route: Mouth/Throat Freq: NOW Start Date: 01/02/19 Administration times (back 96 hours, ahead 96 hours): 01/02/19: 1757GI -----acetaminophen (TYLENOL) tablet 650 mg #[id number] Admin Amount: 2 Tab (2 x 325 mg Tab) Ordered Dose: 650 mg Route: Oral Ankur q: EVERY 4 HOURS NEEDED Start Date: 01/02/19 No administration times (back 96 hours, ahead 96 hours). ------HYDROcodone-acetaminophen (NORCO) 5-325 mg per tablet 1 Tab #[id number] Admin Amount: 1 Tab Ordered Dose: 1 Tab Route: Oral Freq: EVERY 4 HOURS NE EDED Start Date: 01/02/19 No administration times (back 96 hours, ahead 96 hours). ------HYDROmorphone (PF) (DILAUDID) injection 1 mg #[id number] Admin Amount: 1 mL = 1 mg of 1 mg/mL Ordered Dose: 1 mg Ro lime: IntraVENous Freq: EVERY 4 HOURS NEEDED Start Date: 01/02/19 Administration times (back 96 hours, ahe ad 96 hours): 01/02/19: 2203GI -----diphenhydrAMINE (BENADRYL) capsule 25 mg #[id number] Admin Amount: 1 Cap (1 x 25 mg Cap) Ordered Dose: 25 mg Route: Oral Freq: EVER Y 4 HOURS NEEDED Start Date: 01/02/19 No administration times (back 96 hours, ahead 96 hours). ------ondansetron (ZOFRAN) injection 4 mg #[id number] Admin Amount: 2 mL = 4 mg of 4 mg/2 mL Ordered Dose: 4 mg Route: Int raVENous Freq: EVERY 4 HOURS NEEDED Start Date: 01/02/19 No administration times (back 96 hours, ahe ad 96 hours).Verito Velasco MR#: [id number] * Rm: 371-01Ht: 5' 2" Wt: 2 00 lb Code: Full Code Iso:Diagnosis:SBO (small bowel obstruction) ([facility]) [K56.609]Allergies: N o Known Allergies -------- Current as of: 01/02/192241 GI=Given IC=IV Complet ed NB=New Bag --magnesium hydroxide (MILK OF MAGNESIA) 400 mg/5 mL oral suspension 3* #[id number] Admin Amount: 30 mL Ordered Dose: 30 mL Route: Oral Freq: DAILY PRN Start Date: 01/02/19 No administration times (back 96 hours, ahead 96 hours). ------heparin (porcine) injection 5,000 Units #[id number] Admin Amount: 1 mL = 5,000 Units of 5,000 Units/mL Ordered Dose: 5,000 Unit s Route: SubCUTAneous Freq: EVERY 8 HOURS Start Date: 01/02/19 Administration time s (back 96 hours, ahead 96 hours): 01/02/19: 2204GI 01/03/19: 0600 1400 2200 01/04/19: 0600 1400 2200 01/05/19: 0600 1400 2200 01/06/19: 0600 1400 2200 ---insulin lispro (HUMALOG) injection #[id number] Ordered Dose: Route: SubCUTAneous Freq: 3 TIMES DAILY BEFORE MEALS Start Date: 01/03/19 Administration times (back 96 hours, ahead 96 hours): 01/03/19: 729 1129 16 30 01/04/19: 72901/05/19: 729 1129 16301/06/19: 729 1129 163 ---dextrose 40% (GLUTOSE) oral gel 1 Tube #[id number] Admin Amount: 1 Tube Ordered Dose: 15 g Route: Oral Freq: NEEDED Start Date: 01/02/19 No administration times (back 96 hours, ahead 96 hours). ------glucagon (GLUCAGEN) injection 1 mg #[id number] Admin Amount: 1 mL = 1 mg of 1 mg/mL Ordered Dose: 1 mg Ro lime: IntraMUSCular Freq: NEEDED Start Date: 01/02/19 No administration times (back 9 6 hours, ahead 96 hours). ------dextrose (D50W) injection syrg 12.5-25 g #[id number] Admin Amount: 25-50 mL = 12.5-25 g of 25 g/50 mL Ordered Dose: 25-50 mL Ro lime: IntraVENous Freq: NEEDED Start Date: 01/02/19 No administration times (back 96 hours, ahead 96 hours).Verito Velasco MR#: [id number] * Rm: 371-01Ht: 5' 2" Wt: 2 00 lb Code: Full Code Iso:Diagnosis:SBO (small bowel obstruction) ([facility]) [K56.609]Allergies: N o Known Allergies -------- Current as of: 01/02/192241 GI=Given IC=IV Complet ed NB=New Bag --metoprolol (LOPRESSOR) injection 2.5 mg #[id number] Admin Amount: 2.5 mL = 2.5 mg of 1 mg/mL Ordered Dose: 2.5 mg Route: Int raVENous Freq: EVERY 6 HOURS Start Date: 01/03/19 Administration times (back 96 hours, [facility] ad 96 hours): 01/03/19: 0000 0600 1200 1800 01/04/19: 0000 0600 1200 1800 01/05/19: 0000 0600 1200 1800 01/06/19: 0000 0600 1200 1800 ---0.9% sodium chloride infusion #[id number] Ordered Dose: 100 mL/hr Route: IntraVENous Freq: CONTINUOUS Start Date: 01/02/19 Rate: 100 mL/hr Duration: Administration times (back 96 hours, ead 96 hours): 01/02/19: 2206NB ED Current OP Medicationsatorvastatin (LIPITOR) 10 mg tabletSig:Take 10 mg by mouth daily.Dispense Amount:Start Date:End Date:Doc. Provider: Provider, Historical metformin (GLUCOPHAGE) 500 mg tabletSig:Take 500 mg by mouth daily.Dispense Amount:Start Date:End Ankit e:Doc. Provider: Provider, Historicalmetoprolol (LOPRESSOR) 50 mg tabletSig:Take 100 mg by mouth daily. In dications: HYPERTENSIONDispense Amount:Start Date:End Date:Doc. Provider: Provider, HistoricalOTHERSig:T erik by mouth daily. Vitamin D, Calcium, fiber, Vitamin B12 (all OTC)Dispense Amount:Start Date:End Date: Doc. Provider: Provider, Historical ED Prescriptions None on FileFollow-up InformationNone Name Value Range Interpretation Code Description Data Gissell rce(s) Supporting Document(s ) ID Date Data Source [id number] 01/02/2019 10:17:[address] [facility] TRANSFER - OUT REPORT:Verbal report give n to YESICA Avila(name) on Verito Velasco being transferred to(unit) for routine progression of careReport consisted of patient's Situation, Background, Assessm ent andRecommendations(SBAR).Information from the following report(s) SBAR, ED Summary and MAR was reviewedwith the receiving nurse.Lines:Peripheral IV 01/02/19 Right Antecubital (Active)Opportunity for questions and clarification was provided .Patient transported with: MonitorRegistered Nurse Name Value Range Interpretation Code Description Data Gissell rce(s) Supporting Document(s ) ID Date Data Source [id number] 01/02/2019 10:02:[address] [facility] History and PhysicalPatient: Verito askew Sex: female DOA: 01/02/2019Date of : 1965 Age: 53 y.o.HPI:Verito Velasco is a 53 y.o. female with h/o diabetes and hyp ertension whopresents to the ED c/o diffuse abdominal pain onset 3 days ago with ass ociateddiarrhea and vomiting. Patient also c/o mild chest pain. Patient states she hada similar episode of current symptoms 7 years ago.Denies any SOB, coughing or p alpitations. No fever or chills. No dysurea orpolyurea. No Skin rashReview of System s: All 10 point review of systems was otherwise discussed andnegativePast Medi lazaro History:Diagnosis Date Diabetes (HCC) diet controlled pre-diabetic Hypertensi on Trigger finger of left hand 12/08/2013Past Surgical History:Procedure Laterality Da te HX ORTHOPAEDIC right carpal tunnelFamily HistoryProblem Relation Age of Onset Di abetes Mother Heart Disease MotherSocial HistorySocioeconomic History Marital st atus: Spouse name: Not on file Number of children: Not on file Years o f education: Not on file Highest education level: Not on fileTobacco Use Smoking s tatus: Current Every Day Smoker Packs/day: 0.50 Years: 20.00 Pack years: 10.00 S mokeless tobacco: Never UsedSubstance and Sexual Activity Alcohol use: No Drug u se: No Sexual activity: Not Currently Partners: MalePrior to Admission medicat ionsMedication Sig Start Date End Date Taking? Authorizing Provideratorvastatin (LIPITOR) 10 mg tablet Take 10 mg by mouth daily. Provider,Historicalmetformin ( GLUCOPHAGE) 500 mg tablet Take 500 mg by mouth daily. Provider,Historicalmetop rolol (LOPRESSOR) 50 mg tablet Take 100 mg by mouth daily. Indications:HYPERTENSION Provider, HistoricalOTHER Take by mouth daily. Vitamin D, Calcium, fiber, Vitami n B12 (all OTC)Provider, HistoricalNo Known AllergiesPhysical Exam:VITALS:Visit Gloria lsBP (!) 153/97Pulse (!) 105Temp 98.9 F (37.2 C)Resp 20Ht 5' 2" (1.575 m)Wt 90. 7 kg (200 lb)SpO2 96%BMI 36.58 kg/m Temp (24hrs), Av.3 F (36.8 C), Min:97.6 F (36.4 C), Max:98.9 F (37.2 C)PHYSICAL EXAM:General: Alert, cooperative, no distressHead: Normocephalic, atraumatic.Eyes: Conjunctivae clear, a nicteric sclerae.Neck: Supple, thyroid: non tenderLungs: Clear to auscultation jayda aterally.Heart: S1 S2 Regular rate and rhythm, syst murmurAbdomen: Soft. Dis tended, mild generalized tenderness. hypoactive BSExtremities: No cyanosis. No edema. No clubbingSkin: turgor normal. No rashesNeurologic: Alert and oriente d X 3.Labs Reviewed:Xr Abd (duarte)Result Date: 01/02/2019XR ABD (KUB) PRIOR: None HISTOR Y: Limited to that provided by the emergencydepartment at the time of the e xamination; Patient complaining of chest pain,abdominal pain with n/v that starte d yesterday. FINDINGS: An NGT is present andin good position. Mild mid left sided abdominal ileus is identified. No abnormaldensities are identified. No bow el wall thickening, pneumatosis or free air isidentified in the visualized limited a bdomen/upper pelvis. The visualizedosseous structures are unremarkable for age.IMPR ESSION: 1. NGT good position as above. 2. Left midabdomen ileus; noobstruction or free air identified.Ct Abd Pelv W ContResult Date: 01/02/2019CT ABDOMEN PELVIS W/ CONT RAST PRIOR: None HISTORY: Limited to that provided bythe emergency department at t he time of the examination; Patient complaining ofchest pain, abdominal pain with n/v that started yesterday.? TECHNICAL FACTORS:Spiral images were obtained from the lung bases to the symphysis pubis duringthe dynamic administration of 100 mL, (from a 100 mL single use vial), ofnon-ionic contrast, (Isovue-300). Or al contrast was utilized for bowelopacification. From the data set sa gittal and coronal reconstruction images werecreated on an independent workstatio n and [facility]. Utilizing inflated pad buffer algorithms the ex amination was performed tooptimize image quality while utilizing the lowest possi ble ionizing radiationdose. One or more of the following doses reduction techniques was used:Decreasing the mA and or kV, automatic exposure control and iterative reconstruction algorithm. LOWER CHEST: Extrathoracic soft tissues: Unremarkable Cardiac base: Unremarkable. Lung bases: Dependent atelectatic changes areidentif ied posteriorly. No infiltrates or effusions are present. ABDOMEN: Liver:Diffuse homo geneous decreased attenuation most consistent with fattyinfiltration. No duct dilatati on, cyst or mass is identified. There is a smallamount of ascites interposed betwee n the right lobe of the liver and diaphragm.Gallbladder: Contracted-multip le gallstones are identified. No gallbladder wallthickening or pericholecystic fluid collections are identified. Spleen:Unremarkable Pancreas: Unremarkab le Stomach/small bowel: Stomach iswell-distended with oral contrast. The re is small bowel dilatation consistentwith an early small bowel obstruction. No wal l thickening or free air isidentified. There is a small amount of free fluid surround ing the distal smallbowel in the RLQ as well as in the left lower quadrant. The termi nal ileum isdecompressed and there is a transition identified of the distal smal lbowel-series 2, #38-50. Colon: Scattered diverticuli are identified of thedistal ascending and transverse portions of the colon. No obstruction isidentified. Mese ntery: No adenopathy or mass is identified. Adrenals:Unremarkable Aorta: Mild ather osclerotic calcification is identified greatestinfrarenal. No aneurysm is prese nt. Retroperitoneum: No adenopathy or mass isidentified. Kidneys: Right: In the in terpolar portion there is awell-circumscribed 1.1 cm low-attenuation mass statisticall y most consistentwith a cyst. The kidney is otherwise unremarkable including its par enchymalenhancement. Left: In the upper polar portion there is a well-circumscri bed 1.3several low-attenuation mass consistent with a cyst. The left kidney, includingits parenchymal enhancement is otherwise unremarkable. PELVIS: Small am ount offree fluid is identified within the cul-de-sac. The uterus is unremarkable. Thebladder is mild to moderately distended. Several phleboliths are identified. Noil iac or inguinal adenopathy is identified. Within the subcutaneous soft tissuesof t he buttocks there are multiple dense coarse calcifications consistent withinjection granulomas. BONE: There is a mild broad C-shaped dextroscolioticcurvature of the lumbar spine. Productive degenerative marginal osteophytes areidentified of mu ltiple thoracic and lumbar vertebral bodies. No lytic, blasticor bony destructive clara nges are identified.IMPRESSION: 1. Findings consistent with small bowel obstruction- withouttransition the distal portion-no free air identified though there is a smallam ount of free fluid within the abdomen and pelvis. 2. Fatty infiltration of thelive r. 3. Cholelithiasis without findings suggesting cholecystitis. 4. Singlerenal cysts. 5. Dextroscoliotic curvature of the lumbar spine. The above waspersonally ca lled to and discussed with Dr. Garner at 1712 hours.Recent Results (from the past 24 hour(s))EKG, 12 LEAD, INITIAL Collection Time: 01/02/19 11:37 AMResult Value Ref Range Ventricular Rate 102 BPM Atrial Rate 102 BPM P-R Interval 164 ms QRS Duration 98 ms Q-T Interval 366 ms QTC Calculation (Bezet) 477 ms Calculated P [place] 68 degr ees Calculated R [place] -67 degrees Calculated T [place] 64 degrees Diagnosis Sinus tachy cardiaBiatrial enlargementIncomplete right bundle branch blockLeft anterior fascicu lar blockPRWPConfirmed by Evens Terrell MD ([id number]) on 01/02/2019 7:38:24 PMGLUCOSE, P OC Collection Time: 01/02/19 11:38 AMResult Value Ref Range Glucose, bedside 185 (H) 65 - 110 MG/DLCBC WITH AUTOMATED DIFF Collection Time: 01/02/19 12:20 PMResult Value Ref Range WBC 12.8 (H) 4.8 - 10.6 K/uL RBC 5.29 4.20 - 5.40 M/uL HGB 18.0 (H) 1 2.0 - 16.0 g/dL HCT 49.7 (H) 36.0 - 47.0 % MCV 94.0 81.0 - 94.0 FL MCH 34.0 27.0 - 35.0 PG MCHC 36.2 30.7 - 37.3 g/dL RDW 12.7 11.5 - 14.0 % PLATELET 210 130 - 400 K/u L MPV 11.9 (H) 9.2 - 11.8 FL NEUTROPHILS 85 (H) 48.0 - 72.0 % LYMPHOCYTES 11 (L) 18. 0 - 40.0 % MONOCYTES 3 2.0 - 12.0 % EOSINOPHILS 1 0.0 - 7.0 % BASOPHILS 0 0. 0 - 3.0 % ABS. NEUTROPHILS 10.9 (H) 1.5 - 6.6 K/UL ABS. LYMPHOCYTES 1.3 (L) 1.5 - 3.5 K/UL ABS. MONOCYTES 0.4 0.0 - 1.0 K/UL ABS. EOSINOPHILS 0.1 0.0 - 0.7 K/UL ABS. BASO PHILS 0.0 0.0 - 0.1 K/UL DF AUTOMATED IMMATURE GRANULOCYTES 0 0.0 - 2.0 %METAB OLIC PANEL, COMPREHENSIVE Collection Time: 01/02/19 12:20 PMResult Value Ref Range Sodium 136 136 - 145 mmol/L Potassium 4.0 3.5 - 5.1 mmol/L Chloride 101 98 - 107 mmol/ L CO2 26 21 - 32 mmol/L Anion gap 14 10 - 20 mmol/L Glucose 191 (H) 74 - 106 mg/dL BU N 14 7 - 18 mg/dL Creatinine 0.76 0.40 - 1.16 mg/dL GFR est AA >60 >60 ml/min/1.73m2 G FR est non-AA >60 >60 ml/min/1.73m2 Calcium 10.4 (H) 8.5 - 10.1 mg/dL Bilirubin, tot al 1.0 0.2 - 1.0 mg/dL ALT (SGPT) 43 13 - 61 U/L AST (SGOT) 19 15 - 37 U/L Alk. phosp hatase 109 45 - 117 U/L Protein, total 8.2 6.4 - 8.2 g/dL Albumin 4.4 3.5 - 4.7 g/d L Globulin 3.8 1.7 - 4.7 g/dL A-G Ratio 1.1 0.7 - 2.8LIPASE Collection Time: 9 12:20 PMResult Value Ref Range Lipase 60 (L) 73 - 393 U/LTROPONIN I Collection Ti me: 01/02/19 12:20 PMResult Value Ref Range Troponin-I, Qt. <0.02 0.00 - 0.05 NG/MLU RINALYSIS W/ RFLX MICROSCOPIC Collection Time: 01/02/19 1:52 PMResult Value Ref Range Color DARK YELLOW (A) YEL Appearance CLEAR CLEAR Specific gravity 1.031 (H) 1 .003 - 1.030 pH (UA) 5.5 4.6 - 8.0 Protein 30 (A) NEG mg/dL Glucose NEGATIVE NEG mg/d L Ketone 5 (A) NEG mg/dL Bilirubin NEGATIVE NEG Blood NEGATIVE NEG Urobilinogen 1.0 0.2 - 1.0 EU/dL Nitrites NEGATIVE NEG Leukocyte Esterase NEGATIVE NEG WBC 0-3 0 - 5 /hpf RBC 0-3 0 - 3 /hpf Epithelial cells 20-50 0 - 10 /hpf Bacteria FEW (A) NONE /hpf Casts 0-3 (A) NONE /lpf Crystals, urine NONE NONE /LPFAssessment/PlanActiv e Problems: SBO (small bowel obstruction) ([facility]) (01/02/2019)Small Bowel Obstruction Will Keep patient NPO. NGT inserted and connected to suction. Monitorelectrolyte s closely and correct as need. Symptomatic treatment of vomiting withIV Zofran and abd pain with IV Dilaudid. Surgery consult for furtherrecommendations.Chest painWil l admit to tele.Check ECHO, trend TroponinWill keep patient on BBlockersCh miranda lipid profile.Cardiology consultDVT Prophylaxis:[] Venodynes[] Lovenox[x] He kristin[] No Lovenox or Heparin for risk of bleedingTotal time spent with patient: 3 0 Minutes Bandar Swift [facility] 20189:47 PM Name Value Range Interpretation Code Description Data Gissell rce(s) Supporting Document(s ) ID Date Data Source [id number] 01/02/2019 07:13:[address] [facility] Report given to YESICA Ribera. Name Value Range Interpretation Code Description Data Gissell rce(s) Supporting Document(s ) ID Date Data Source [id number] 01/02/2019 06:43:[address] [facility] The history is provided by the patient.1 2:17 PM: Verito Velasco is a 53 y.o. female with h/o diabetes andhypertension who presents to the ED c/o diffuse abdominal pain onset 3 days agowith associated mio rrhea and vomiting. Patient also c/o mild chest pain. Patientstates she had a ally lar episode of current symptoms 7 years ago. The patientstates at that time she had a n abnormal EKG and reports she was givennitroglycerin with resolution of sy mptoms. No other complaints at this time.Past Medical History:Diagnosis Date Diabetes ([facility]) diet controlled pre-diabetic Hypertension Trigger finger of left sorto d 12/08/2013Past Surgical History:Procedure Laterality Date HX ORTHOPAEDIC right ca rpal tunnelFamily History:Problem Relation Age of Onset Diabetes Mother Heart Dis ease MotherSocial HistorySocioeconomic History Marital status: Spouse name: Not on file Number of children: Not on file Years of education: Not on file Highest education level: Not on fileOccupational History Not on fileSoc ial Needs Financial resource strain: Not on file Food insecurity: Worry: Not on fi le Inability: Not on file Transportation needs: Medical: Not on file Non-medica l: Not on fileTobacco Use Smoking status: Current Every Day Smoker Packs/day: 0.5 0 Years: 20.00 Pack years: 10.00 Smokeless tobacco: Never UsedSubstance and Sexual Activity Alcohol use: No Drug use: No Sexual activity: Not Currently Partners : MaleLifestyle Physical activity: Days per week: Not on file Minutes per session: Not on file Stress: Not on fileRelationships Social connections: Talks on phone: No t on file Gets together: Not on file Attends nondenominational service: Not on file Active member of club or organization: Not on file Attends meetings of clubs or organ izations: Not on file Relationship status: Not on file Intimate partner violence: Fear of current or ex partner: Not on file Emotionally abused: Not on file Physica lly abused: Not on file Forced sexual activity: Not on fileOther Topics Concer n Not on fileSocial History Narrative Not on fileALLERGIES: Patient has no known a llergies.Review of SystemsConstitutional: Negative for chills and fever.HENT: Nega tive for rhinorrhea and sore throat.Eyes: Negative for photophobia and visual dist urbance.Respiratory: Negative for cough and shortness of breath.Cardiovascular: Posi tive for chest pain (mild). Negative for leg swelling.Gastrointestinal: Positive for abdominal pain (diffuse), diarrhea and vomiting.Negative for nausea.Genitourina ry: Negative for dysuria and hematuria.Musculoskeletal: Negative for back pain and myalgias.Skin: Negative for color change and pallor.Neurological: Ne gative for seizures and syncope.Vitals: 01/02/19 1132 01/02/19 1540 01/02/19 183 0BP: (!) 134/98 134/71 (!) 145/94Pulse: 99 100 (!) 105Resp: 18 18 20Temp: 97.6 F ( 36.4 C) 98.9 F (37.2 C)SpO2: 97% 95% 97%Weight: 90.7 kg (200 lb)Height: 5' 2" (1.575 m)11:32 AM Pulse Oximetry reading is 97% on room air, which indicates normalo xygenation per Benjamin Garner MD.Physical ExamConstitutional: She is oriented to p erson, place, and time. She appearswell-developed and well-nourished . No distress.HENT:Head: Normocephalic and atraumatic.Eyes: Pupils are equal, round , and reactive to light. EOM are normal.Neck: Neck supple. No JVD present.Cardiovascul ar: Normal rate, regular rhythm and normal heart sounds.Pulmonary/Chest: Effort nor mal and breath sounds normal. No respiratorydistress. She has no wheezes. She has no rales.Abdominal: Soft. She exhibits no distension. There is no rebo und and noguarding.Diffusely tender in abdomen, more in upper quadrant bilatera lly.Musculoskeletal: Normal range of motion. She exhibits no edema or tenderness.Neur ological: She is alert and oriented to person, place, and time.Skin: Skin is wa rm and dry.Psychiatric: She has a normal mood and affect.Nursing note and vitals revie wed.MDMNumber of Diagnoses or Management OptionsSBO (small bowel obstruction) ([facility] C):Amount and/or Complexity of Data ReviewedClinical lab tests: ordered and reviewedTests in the radiology section of CPT : ordered and reviewedDecide to obtain p revious medical records or to obtain history from someoneother than the patient: yesR eview and summarize past medical records: yesDiscuss the patient with other provid ers: yesIndependent visualization of images, tracings, or specimens: yesProcedPascual Sinclair Scott, MD, reviewed the patient's past history, allergies and homemedicati ons as documented in the nursing chart.Labs:Recent Results (from the past 12 hour(s))EKG, 12 LEAD, INITIAL Collection Time: 01/02/19 11:37 AMResult Value Ref Range Ventricular Rate 102 BPM Atrial Rate 102 BPM P-R Interval 164 ms QRS Duration 98 ms Q-T Interval 366 ms QTC Calculation (Bezet) 477 ms Calculated P [place] 68 degr ees Calculated R [place] -67 degrees Calculated T [place] 64 degrees Diagnosis Sinus tachy cardiaBiatrial enlargementIncomplete right bundle branch blockLeft anterior fascicu lar blockPossible Anterolateral infarct , age undeterminedAbnormal ECGNo previous ECGs availableGLUCOSE, POC Collection Time: 01/02/19 11:38 AMResult Value Ref Range Glucose, bedside 185 (H) 65 - 110 MG/DLCBC WITH AUTOMATED DIFF Collection Time: 12:20 PMResult Value Ref Range WBC 12.8 (H) 4.8 - 10.6 K/uL RBC 5.29 4.20 - 5.40 M/uL HGB 18.0 (H) 12.0 - 16.0 g/dL HCT 49.7 (H) 36.0 - 47.0 % MCV 94.0 81.0 - 94.0 F L MCH 34.0 27.0 - 35.0 PG MCHC 36.2 30.7 - 37.3 g/dL RDW 12.7 11.5 - 14.0 % PLATELE T 210 130 - 400 K/uL MPV 11.9 (H) 9.2 - 11.8 FL NEUTROPHILS 85 (H) 48.0 - 72.0 % LYMP HOCYTES 11 (L) 18.0 - 40.0 % MONOCYTES 3 2.0 - 12.0 % EOSINOPHILS 1 0.0 - 7.0 % BASOP HILS 0 0.0 - 3.0 % ABS. NEUTROPHILS 10.9 (H) 1.5 - 6.6 K/UL ABS. LYMPHOCYTES 1.3 (L) 1.5 - 3.5 K/UL ABS. MONOCYTES 0.4 0.0 - 1.0 K/UL ABS. EOSINOPHILS 0.1 0.0 - 0.7 K/UL ABS. BASOPHILS 0.0 0.0 - 0.1 K/UL DF AUTOMATED IMMATURE GRANULOCYTES 0 0.0 - 2.0 %METABOLIC PANEL, COMPREHENSIVE Collection Time: 01/02/19 12:20 PMResult Value Ref Range Sodium 136 136 - 145 mmol/L Potassium 4.0 3.5 - 5.1 mmol/L Chloride 101 98 - 107 mmol/L CO2 26 21 - 32 mmol/L Anion gap 14 10 - 20 mmol/L Glucose 191 (H) 74 - 106 mg/dL BUN 14 7 - 18 mg/dL Creatinine 0.76 0.40 - 1.16 mg/dL GFR es t AA >60 >60 ml/min/1.73m2 GFR est non- AA >60 >60 ml/min/1.73m2 Calcium 10.4 (H) 8.5 - 10.1 mg/dL Bilirubin, total 1.0 0.2 - 1.0 mg/dL ALT (SGPT) 43 13 - 61 U/L AST (SGO T) 19 15 - 37 U/L Alk. phosphatase 109 45 - 117 U/L Protein, total 8.2 6.4 - 8.2 g/d L Albumin 4.4 3.5 - 4.7 g/dL Globulin 3.8 1.7 - 4.7 g/dL A-G Ratio 1.1 0.7 - 2.8LIPASE Collection Time: 01/02/19 12:20 PMResult Value Ref Range Lipase 60 (L) 73 - 393 U /LTROPONIN I Collection Time: 01/02/19 12:20 PMResult Value Ref Range Troponin-I, Qt. <0.02 0.00 - 0.05 NG/MLURINALYSIS W/ RFLX MICROSCOPIC Collection Time: 01/02/19 1 :52 PMResult Value Ref Range Color DARK YELLOW (A) YEL Appearance CLEAR CLEAR Sp ecific gravity 1.031 (H) 1.003 - 1.030 pH (UA) 5.5 4.6 - 8.0 Protein 30 (A) NEG mg /dL Glucose NEGATIVE NEG mg/dL Ketone 5 (A) NEG mg/dL Bilirubin NEGATIVE NEG Blood NEGATIVE NEG Urobilinogen 1.0 0.2 - 1.0 EU/dL Nitrites NEGATIVE NEG Leukocyte E sterase NEGATIVE NEG WBC 0-3 0 - 5 /hpf RBC 0-3 0 - 3 /hpf Epithelial cells 20-50 0 - 10 /hpf Bacteria FEW (A) NONE /hpf Casts 0-3 (A) NONE /lpf Crystals, urine NONE N ONE /LPFEKG: Sinus tachycardia at a rate of 102 BPM. No acute changes.Interpreted by Benjamin Ganrer MDRadiology:CT Results (Last 48 hours) 01/02/[address] ABD PE LV W CONT Final result Impression: IMPRESSION:1. Findings consistent with s mall bowel obstruction-without transition thedistal portion-no free air identified though there is a small amount of freefluid within the abdomen and pelvis.2. Fatty i nfiltration of the liver.3. Cholelithiasis without findings suggesting cholecystiti s.4. Single renal cysts.5. Dextroscoliotic curvature of the lumbar spine.The above was personally called to and discussed with Dr. Garner at 1712hours. Narrative: CT ABDOMEN PELVIS W/ CONTRASTPRIOR: NoneHISTORY: Limited to that provided by the emergency department at the time of theexamination; Patient complaining of c hest pain, abdominal pain with n/v thatstarted yesterday.?TECHNICAL FACTORS : Spiral images were obtained from the lung bases to thesymphysis pubis during the d ynamic administration of 100 mL, (from a 100 mLsingle use vial), of non-ionic contras t, (Isovue-300). Oral contrast wasutilized for bowel opacification. From the data s et sagittal and coronalreconstruction images were created on an independent workstati on andelectronically transmitted to the PACS. Utilizing inflated pad buffer algorithms theex amination was performed to optimize image quality while utilizing the lowestpossib le ionizing radiation dose. One or more of the following doses reductiontechniques was used: Decreasing the mA and or kV, automatic exposure control anditerative reconstruction algorithm.LOWER CHEST:Extrathoracic soft tissues: Unrema rkableCardiac base: Unremarkable.Lung bases: Dependent atelectatic changes are identi fied posteriorly. Noinfiltrates or effusions are present.ABDOMEN:Liver: Diffuse homog eneous decreased attenuation most consistent with fattyinfiltration. No duct dilatati on, cyst or mass is identified. There is a smallamount of ascites interposed betwee n the right lobe of the liver and diaphragm.Gallbladder: Contracted-multip le gallstones are identified. No gallbladder wallthickening or pericholecystic fluid collections are identified.Spleen: UnremarkablePancreas: UnremarkableStomac h/small bowel: Stomach is well-distended with oral contrast. There issmall bowel dilat ation consistent with an early small bowel obstruction. No wallthickening or free a ir is identified. There is a small amount of free fluidsurrounding the distal small b owel in the RLQ as well as in the left lowerquadrant. The terminal ileum is dec ompressed and there is a transitionidentified of the distal small bowel-series 2, #38- 50.Colon: Scattered diverticuli are identified of the distal ascending andtr ansverse portions of the colon. No obstruction is identified.Mesentery: No adenopathy or mass is identified.Adrenals: UnremarkableAorta: Mild atherosclerotic calcification is identified greatest infrarenal. Noaneurysm is present.Retrop eritoneum: No adenopathy or mass is identified.Kidneys:Right: In the interp olar portion there is a well-circumscribed 1.1 cmlow-attenuation mass statistically most consistent with a cyst. The kidney isotherwise unremarkable including its p arenchymal enhancement.Left: In the upper polar portion there is a well-circumscri bed 1.3 severallow-attenuation mass consistent with a cyst. The left kidney, including itsparenchymal enhancement is otherwise unremarkable.PELVIS:Small amou nt of free fluid is identified within the cul-de-sac. The uterus isunremarkable. T he bladder is mild to moderately distended. Several phlebolithsare identified. No il iac or inguinal adenopathy is identified.Within the subcutaneous soft tissues of the buttocks there are multiple densecoarse calcifications consistent wi th injection granulomas.BONE:There is a mild broad C-shaped dextroscoliotic curvature of the lumbar spine.Productive degenerative marginal osteophytes are identified of m ultiple thoracicand lumbar vertebral bodies. No lytic, blastic or bony destructive ch anges areidentified.Radiology interpretation reviewed by Benjamin Garner MD<EMERGEN CY DEPARTMENT CASE SUMMARY>ED Course:53 y.o. female presented to the ED c/o abdominal pain with associated diarrheaand vomiting. Patient also c/o mild chest pain. Order EKG, labs, and CTabd/pelv. Give Zofran, Pepcid, and IV fluids.Labs and radiology results reviewed.5:14 PM Case presentations and findings discussed with Dr. Crystal (Urology) paulette towards admission.5:18 PM Case presentations and findings discusse d with Dr. Lama (Hospitalist)who agrees to admit the patient. Patient was reassesse d prior to disposition.Discussed results, diagnosis and treatment plan. Patient's questions wereanswered. Patient agrees with plan to admit.5:51 PM Case presentations and findings [facility] who agrees to see the p atient in consult.6:04 PM NG tube placed by me after instillation of viscous lidocai ne. Order KUBto confirm placement.KUB results reviewed.Final Impression/Diagnosis:Enco unter Diagnoses ICD-10-CM ICD-9-CM1. SBO (small bowel obstruction) ([facility]) K56.609 560.9Patient condition at time of disposition: StableI have reviewed the [facility] medications:Prior to Admission medicationsMedication Sig Start Date End Date Taking? Authorizing Provideratorvastatin (LIPITOR) 10 mg tab let Take 10 mg by mouth daily. Provider,Historicalmetformin (GLUCOPHAGE ) 500 mg tablet Take 500 mg by mouth daily. Provider,Candismetoprolol (LOPRESSO R) 50 mg tablet Take 100 mg by mouth daily. Indications:HYPERTENSION Provider, Hi storicalOTHER Take by mouth daily. Vitamin D, Calcium, fiber, Vitamin B12 (all OTC) Provider, Bnejamin Greer MD I, Christy G Joseph, am serving as a scribe to document services personallyperformed by Benjamin Garner MD based on my observa tion and the provider'sstatements to me.I, Benjamin Garner MD, attest that the pe rson(s) noted above, acting as myscribe(s) noted above, has observed my performance of the services and hasdocumented them in accordance with my direction. I have per sonally reviewed theabove information and have ordered and reviewed the diagnostic studies, unlessotherwise noted. Name Value Range Interpretation Code Description Data Gissell rce(s) Supporting Document(s ) ID Date Data Source [id number] 01/02/2019 06:30:22 PM EDT [facility] XR ABD (KUB)PRIOR: NoneHISTORY: Limited to that provided by the emergency department at the time oftheexamination; Patient co mplaining of chest pain, abdominal pain with n/v thatstarted yesterday. FINDINGS: An NGT is present and in good position. Mild mid left sidedabdominalileus is identifi ed. No abnormal densities are identified. No bowel wallthickening, pneumatosis or ankur e air is identified in the visualized limitedabdomen/upper pelvis.The visualiz ed osseous structures are unremarkable for age.IMPRESSION: 1. NGT good position as above.2. Left midabdomen ileus; no obstruction or free air identified. Sign ing date/time: 01/02/2019 6:30 PMSigned by: PILAR AGUSTIN Name Value Range Interpretation Code Description Data Gissell rce(s) Supporting Document(s ) ID Date Data Source [id number] 01/02/2019 05:56:[address] [facility] Stretcher Drier Operator attempted NG tube placement x2, p atient pulled out tube with eachattempt. Provider notified and at bedside. Name Value Range Interpretation Code Description Data [facility] rce(s) Supporting Document(s ) ID Date Data Source [id number] 01/02/2019 05:14:[address] [facility] CT ABDOMEN PELVIS W/ CONTRASTPRIOR: None HISTORY: Limited to that provided by the emergency department at the time oftheex amination; Patient complaining of chest pain, abdominal pain with n/v thatstarted yest erday.?TECHNICAL FACTORS: Spiral images were obtained from the lung bases to thesymph ysis pubis during the dynamic administration of 100 mL, (from a 100 mLsingle use vial ), of non-ionic contrast, (Isovue-300). Oral contrast wasutilized for bowel opac ification. From the data set sagittal and coronalreconstruction images were create d on an independent workstation andelectronically transmitted to the PAC S. Utilizing inflated pad buffer algorithms theexamination was performed to optimize image quality while utilizing the lowestpossible ionizing radiation dose. One or more of the following dosesreductiontechniques was used: Decre asing the mA and or kV, automatic exposure controlanditerative reconstruction algor ithm.LOWER CHEST:Extrathoracic soft tissues: UnremarkableCardiac base: Unremarkable.L cynthia bases: Dependent atelectatic changes are identified posteriorly. Noinfiltrates or effusions are present.ABDOMEN: Liver: Diffuse homogeneous decreased attenuatio n most consistent with fattyinfiltration. No duct dilatation, cyst or mass is identif ied. There is a smallamount of ascites interposed between the right lobe of the liver anddiaphragm.Gallbladder: Contracted-multiple gallstones are ident ified. No gallbladderwallthickening or pericholecystic fluid collections are id entified.Spleen: UnremarkablePancreas: UnremarkableStomach/small bowel: Stomach is well-distended with oral contrast. There issmall bowel dilatation consistent with an early small bowel obstruction. Nowallthickening or free air is identifi ed. There is a small amount of free fluidsurrounding the distal small bowel in the RLQ as well as in the left lowerquadrant. The terminal ileum is dec ompressed and there is a transitionidentified of the distal small bowel-series 2, #38- 50.Colon: Scattered diverticuli are identified of the distal ascending andtr ansverse portions of the colon. No obstruction is identified.Mesentery: No adenopathy or mass is identified.Adrenals: UnremarkableAorta: Mild atherosclerotic calcification is identified greatest infrarenal.Noaneurysm is present.Retrope ritoneum: No adenopathy or mass is identified.Kidneys:Right: In the interp olar portion there is a well-circumscribed 1.1 cmlow-attenuation mass statistically most consistent with a cyst. The kidney isotherwise unremarkable including its p arenchymal enhancement.Left: In the upper polar portion there is a well-circumscri bed 1.3 severallow-attenuation mass consistent with a cyst. The left kidney, including itsparenchymal enhancement is otherwise unremarkable.PELVIS:Small amou nt of free fluid is identified within the cul-de-sac. The uterus isunremarkable. T he bladder is mild to moderately distended. Several phlebolithsare identified. No il iac or inguinal adenopathy is identified.Within the subcutaneous soft tissues of the buttocks there are multiple densecoarse calcifications consistent wi th injection granulomas.BONE:There is a mild broad C-shaped dextroscoliotic curvature of the lumbar spine.Productive degenerative marginal osteophytes are identified of m ultiplethoracicand lumbar vertebral bodies. No lytic, blastic or bony destructive ch anges areidentified.IMPRESSION:1. Findings consistent with small bowel obstruction- without transition thedistal portion-no free air identified though there is a small a mount of freefluid within the abdomen and pelvis.2. Fatty infiltration of the live r.3. Cholelithiasis without findings suggesting cholecystitis.4. Single renal cysts.5. Dextroscoliotic curvature of the lumbar spine.The above was personally ca lled to and discussed with Dr. Garner at 1712hours.Signing date/time: 01/02/2019 5:14 PMSigned by: PILAR AGUSTIN Name Value Range Interpretation Code Description Data Gissell rce(s) Supporting Document(s ) ID Date Data Source [id number] 01/02/2019 02:20:49 PM EDT [facility] - [facility] Name Value Range Interpretation Description Data Sup porting Code Source(s) Document(s ) Color of Urine YEL Abnormal (applies [facility] - to non-numeric [facility] results) [facility] Appearance of CLEAR [facility] - Urine [facility] Specific gravity 1.031 1.003-1. Above high normal [facility] - of Urine by 030 [facility] Refractometry [facility] pH of Urine by 5.5 4.6-8.0 [facility] - Test strip [facility] Protein 30 mg/dL NEG Abnormal (applies [facility] - [Mass/volume] in to non-numeric Communit y Urine by Test results) Hospital strip Glucose NEG [facility] - [Mass/volume] in [facility] Urine by Hospital Automated test strip Ketones 5 mg/dL NEG Abnormal (applies [facility] - [Presence] in to non-numeric [facility] Urine by results) Hospital Automated test strip Bilirubin.total NEG [facility] - [Presence] in [facility] Urine Hospital Hemoglobin NEG [facility] - [Presence] in [facility] Urine by Test Hospital strip Urobilinogen 1.0 0.2-1.0 [facility] - [Presence] in EU/dL [facility] Urine by Hospital Automated test strip Nitrite NEG [facility] - [Presence] in [facility] Urine by Hospital Automated test strip Leukocyte NEG [facility] - esterase Community [Presence] in Hospital Urine by Automated test strip Leukocytes 0-5 [facility] - [Presence] in [facility] Urine sediment Hospital by Light microscopy Erythrocytes 0-3 [facility] - [#/area] in Community Urine sediment Hospital by Microscopy high power field Epithelial cells 0-10 [facility] - [#/area] in [facility] Urine sediment Hospital by Microscopy high power field Bacteria NONE Abnormal (applies [facility] - [Presence] in to non-numeric [facility] Urine sediment results) Hospital by Light microscopy Casts [Presence] NONE Abnormal (applies [facility] - in Urine to non-numeric Community sediment by results) Hospital Light microscopy HYALINE Crystals [Presence] in Urine sediment by NONE [facility] - [facility] Light microscopy ID Date Data Source [id number] 01/02/2019 01:54:05 PM EDT [facility] Name Value Range Interpretation Description Data Sup porting Code Source(s) Document(s ) Troponin 0.00-0.05 [facility] - I.cardiac Community [Mass/volume Hospital ] in Serum or Plasma (NOTE)The presence of detectable troponi n above the reference rangeindicates myocardial injury which may be due to is chemia,myocarditis, trauma, etc. Clinical correlation is necessary todetermine the significance of this finding. Sequential testing isrecommended to determine if th e typical rise and fall of cTnI isdemonstrated. Note, cardiac troponin-I has a relatively longhalf-life and may be present well after the CK MB has returne d tobaseline. cTnI results in the indeterminate/eugene zone for myocardial infarction: 0.06 to 0.59 ng/mL cTnI cutoff/range of values consistent with m yocardial infarction: 0.60 to 1.50 ng/mL ID Date Data Source [id number] 01/02/2019 01:54:05 PM EDT [facility] Name Value Range Interpretation Description Data Sup porting Code Source(s) Document(s ) Sodium 136 136-145 [facility] - [Moles/volume] mmol/L Community in Serum or Hospital Plasma Potassium 4.0 3.5-5.1 [facility] - [Moles/volume] mmol/L Community in Serum or Hospital Plasma Chloride 101 98-107 [facility] - [Moles/volume] mmol/L Community in Serum or Hospital Plasma Carbon 26 21-32 [facility] - dioxide, total mmol/L Community [Moles/volume] Hospital in Serum or Plasma Anion gap in 14 10-20 [facility] - Serum or mmol/L Community Plasma Hospital Glucose 191 74-106 Above high normal [facility] - [Mass/volume] mg/dL Community in Serum or Hospital Plasma Urea nitrogen 14 mg/dL 7-18 [facility] - [Mass/volume] Community in Serum or Hospital Plasma Creatinine 0.76 0.40-1.1 [facility] - [Mass/volume] mg/dL 6 Community in Serum or Hospital Plasma Glomerular >60 [facility] - filtration Community rate/1.73 sq M Hospital predicted among blacks [Volume Rate/Area] in Serum or Plasma by Creatinine-bas ed formula (MDRD) Glomerular >60 [facility] - filtration Community rate/1.73 sq M Hospital predicted among non-blacks [Volume Rate/Area] in Serum or Plasma by Creatinine-bas ed formula (MDRD) (NOTE)Estimated GFR is calculated using the Modification of Diet in RenalDisease (MDRD) Study equation, reported for both Americans(GFRAA) and non- Americans (GFRNA), and normalized to 1.7 3d2ugyp surface area. The physician must decide which value applies tothe patient . The MDRD study equation should only be used inindividuals age 18 or older. It has no t been validated for thefollowing: women, patients with serious comorbid co nditions,or on certain medications, or persons with extremes of body size,muscl e mass, or nutritional status. Calcium [Mass/volume] in 10.4 mg/dL 8.5-10.1 Above high [facility] - Community Serum or Plasma normal Hospital Bilirubin.total 1.0 mg/dL 0.2-1.0 [facility] - Commun ity [Mass/volume] in Serum or Hosp ital Plasma Alanine aminotransferase 43 U/L 13-61 [facility] - Community [Enzymatic Hospital activity/volume] in Serum or Plasma Aspartate aminotransferase 19 U/L 15-37 [facility] - Community [Enzymatic Hospital activity/volume] in Serum or Plasma by With P-5'-P Alkaline phosphatase 109 U/L 45-117 [facility] - C ommunity [Enzymatic Hospital activity/volume] in Serum or Plasma Protein [Mass/volume] in 8.2 g/dL 6.4-8.2 [facility] - Community Serum or Plasma Hospital Albumin [Mass/volume] in 4.4 g/dL 3.5-4.7 [facility] - Community Serum or Plasma by Hospital Bromocresol purple (BCP) dye binding method Globulin [Mass/volume] in 3.8 g/dL 1.7-4.7 [facility] Community Serum by calculation Hospital Albumin/Globulin [Mass 1.1 0.7-2.8 [facility] Community Ratio] in Serum or Plasma Hosp ital ID Date Data Source [id number] 01/02/2019 01:54:05 PM EDT [facility] - [facility] Name Value Range Interpretation Code Description Data Gissell rce(s) Supporting Document(s ) Lipase 60 U/L 73-393 Below low normal [facility] - [Enzymatic Community activity/vo Hospital lume] in Serum or Plasma ID Date Data Source [id number] 01/02/2019 01:29:56 PM EDT [facility] - [facility] Name Value Range Interpretation Description Data Sup porting Code Source(s) Document(s ) Leukocytes 12.8 4.8-10.6 Above high normal [facility] - [#/volume] in K/uL Community Blood by Hospital Automated count Erythrocytes 5.29 4.20-5.4 [facility] - [#/volume] in M/uL 0 [facility] Blood by Hospital Automated count Hemoglobin 18.0 12.0-16. Above high normal [facility] - [Mass/volume] in g/dL 0 [facility] Blood [facility] Hematocrit 49.7 % 36.0-47. Above high normal [facility] - [Volume 0 Community Fraction] of Hospital Blood by Automated count Erythrocyte mean 94.0 FL 81.0-94. [facility] - corpuscular 0 Community volume [Entitic Hospital volume] by Automated count Erythrocyte mean 34.0 PG 27.0-35. [facility] - corpuscular 0 [facility] hemoglobin Hospital [Entitic mass] by Automated count Erythrocyte mean 36.2 30.7-37. [facility] - corpuscular g/dL 3 Community hemoglobin Hospital concentration [Mass/volume] by Automated count Erythrocyte 12.7 % 11.5-14. [facility] - distribution 0 Community width [Ratio] by Hospital Automated count Platelets 210 K/uL 130-400 [facility] - [#/volume] in Community Blood by Hospital Automated count Platelet mean 11.9 FL 9.2-11.8 Above high normal [facility] - volume [Entitic Community volume] in Blood Hospital by Automated count Segmented 85 % 48.0-72. Above high normal [facility] - neutrophils/100 0 Community leukocytes in Hospital Blood Lymphocytes/100 11 % 18.0-40. Below low normal [facility] - leukocytes in 0 [facility] Blood Hospital Monocytes/100 3 % 2.0-12.0 [facility] - leukocytes in [facility] Blood Hospital Eosinophils/100 1 % 0.0-7.0 [facility] - leukocytes in [facility] Blood Hospital Basophils/100 0 % 0.0-3.0 [facility] - leukocytes in [facility] Blood Hospital Segmented 10.9 1.5-6.6 Above high normal [facility] - neutrophils K/UL Community [#/volume] in Hospital Blood Lymphocytes 1.3 K/UL 1.5-3.5 Below low normal [facility] - [#/volume] in [facility] Blood Hospital Monocytes 0.4 K/UL 0.0-1.0 [facility] - [#/volume] in [facility] Blood Hospital Eosinophils 0.1 K/UL 0.0-0.7 [facility] - [#/volume] in [facility] Blood Hospital Basophils 0.0 K/UL 0.0-0.1 [facility] - [#/volume] in [facility] Blood Hospital Differential [facility] - cell count [facility] Immature 0 % 0.0-2.0 [facility] - granulocytes/100 Community leukocytes in Hospital Blood by Automated count ID Date Data Source [id number] 01/02/2019 11:49:32 AM EDT [facility] - [facility] Name Value Range Interpretation Description Data Sup porting Code Source(s) Document(s ) Glucose 185 MG/DL 65-110 Above high normal [facility] - [Mass/volume] Community in Blood by Hospital Automated test strip Procedure Social History Code Duration Value Status Description Data Source(s ) Cigarette 02/27/2019 UNK completed [facility] pack-years 12:00:00 AM [employer] Cigarettes 02/27/2019 UNK completed [facility] smoked current 12:00:00 AM [employer] ealth (pack per day) - EDT System I nc Reported Smoking 02/27/2019 Current every completed Current every day [facility] 12:00:00 AM day smoker smoker [employer] Cigarette 02/17/2019 UNK completed [facility] pack-years 12:00:00 AM [employer] Cigarettes 02/17/2019 UNK completed [facility] smoked current 12:00:00 AM [employer] (pack per day) - EDT System I nc Reported Smoking 02/17/2019 Current every completed Current every day [facility] 12:00:00 AM day smoker smoker [employer] Cigarette 01/02/2019 UNK completed [facility] pack-years 12:00:00 AM [employer] Cigarettes 01/02/2019 UNK completed [facility] smoked current 12:00:00 AM [employer] ealt (pack per day) - [employer] System I nc Reported Smoking 01/02/2019 Current every completed Current every day [facility] 12:00:00 AM day smoker smoker [employer] Alcohol intake Yes completed [facility] [employer] Alcohol intake Yes completed [employer] Alcohol intake No completed [employer] [facility] Vital Signs ID Date Data Source UNK Name Value Range Interpretation Code Description Data Source(s) Body mass index 34.75 kg/m2 34.75 kg/m2 [facility] (BMI) [Ratio] [employer] Body weight 86.183 kg 86.183 kg [employer] Body height 157.5 cm 157.5 cm [employer] Oxygen saturation 94 % 94 % [facility] in Arterial blood [employer] by Pulse [employer] Respiratory rate 18 /min 18 /min [facility] [email or web address] Body temperature 36.44 Carmen 36.44 Carmen [facility] [email or web address] Heart rate 70 /min 70 /min [facility] [employer] Diastolic blood 97 mm[Hg] 97 mm[Hg] [facility] pressure [employer] Systolic blood 156 mm[Hg] 156 mm[Hg] [facility] pressure [employer] Body mass index 34.75 kg/m2 34.75 kg/m2 [facility] (BMI) [Ratio] [employer] Body weight 86.183 kg 86.183 kg [employer] Body height 157.5 cm 157.5 cm [employer] Oxygen saturation 97 % 97 % [facility] in Arterial blood [employer] by [employer]ulse [employer] Respiratory rate 18 /min 18 /min [facility] [email or web address] Body temperature 36.61 Carmen 36.61 Carmen [facility] [employer] Heart rate 69 /min 69 /min [employer] [facility] Diastolic blood 88 mm[Hg] 88 mm[Hg] [employer] [facility] rs pressure [employer] Systolic blood 145 mm[Hg] 145 mm[Hg] [facility] pressure [email or web address] [facility] Body mass index 36.58 kg/m2 36.58 kg/m2 [facility] (BMI) [Ratio] [facility] [employer] Body weight 90.719 kg 90.719 kg [facility] [employer] Body height 157.5 cm 157.5 cm [facility] [employer] Patient Treatment Plan of Care Planned Activity Planned Date Details Description Data Source (s) Ibuprofen 200 MG Oral 02/17/2019 12:00:00 [employer] Tablet AM [facility] Health System I nc Acetaminophen 325 MG Oral 02/17/2019 12:00:00 [employer] Tablet AM [facility] Health System I nc Ondansetron 4 MG 02/17/2019 12:00:00 [facility] Disintegrating Oral Tablet AM EDT [facility] System Inc Acetaminophen 325 MG / 02/17/2019 12:00:00 [employer] Kiah Hydrocodone Bitartrate 5 AM [facility] MG Oral Tablet canagliflozin (INV[place] [facility] Health System I nc atorvastatin 10 MG Oral [facility] OTHER Bon [facility] nc Metoprolol Tartrate 50 MG [facility] Oral Tablet [facility]c Metformin hydrochloride Bon [facility] 500 MG Oral Tablet [facility]
[2020-02-11 06:39] VITALS: TEMP 97.5
[2020-02-11] MEDS ORDERED: MIDAZOLAM HCL 2 MG/2 ML SINGLE DOSE VIAL ONE ×2 (07:02→07:30)
[2020-02-11] MEDS ORDERED: PROPOFOL 20 ML ONE (07:02)
[2020-02-11] MEDS ORDERED: SUCCINYLCHOLINE CHLORIDE 200 MG/10 ML SYRINGE ONE (07:02)
[2020-02-11] MEDS ORDERED: LIDOCAINE HCL/PF 2% SDV 5ML VIAL ONE (07:25)
[2020-02-11] MEDS ORDERED: ROPIVACAINE HCL 0.5% 30ML VIAL ONE (07:30)
[2020-02-11] MEDS ORDERED: BUPIVACAINE HCL/PF 0.25% (2.5MG/ML) 10 ML VIAL ONE (07:35)
[2020-02-11] MEDS ORDERED: LIDOCAINE HCL 2% (20ML MULTI-DOSE VIAL) ONE (07:35)
[2020-02-11] MEDS ORDERED: ceFAZolin SODIUM 1 GM VIAL ONE (07:47)
[2020-02-11] MEDS ORDERED: ONDANSETRON 4 MG/2 ML VIAL IVPUSH PRN (07:52)
[2020-02-11] MEDS ORDERED: oxyCODONE HCL 5 MG TABLET PO PRN ×2 (07:52)
[2020-02-11] MEDS ORDERED: LACTATED RINGERS SOLUTION 1,000 ML IV SCH (08:00)
--- NOTE | 2020-02-11 09:19 | OP ---
DATE OF OPERATION: 02/11/2020 PREOPERATIVE DIAGNOSES: 1. Left basal joint osteoarthritis. 2. Left carpal tunnel syndrome. POSTOPERATIVE DIAGNOSES: 1. Left basal joint osteoarthritis. 2. Left carpal tunnel syndrome. OPERATIVE PROCEDURE: 1. Left basal joint arthroplasty. 2. Left thumb carpometacarpal tendon transfer. 3. Left carpal tunnel release. SURGEON: Dimitri Rashid MD ANESTHESIA: Regional and sedation. COMPLICATIONS: None. ESTIMATED BLOOD LOSS: Minimal. PUMP ERECTOR: MARCIAL Carrero INDICATIONS FOR PROCEDURE: The patient is a 54-year-old female with the above finding indicated for operative treatment. The risks, benefits and alternatives were discussed with her at length and proper informed consent was obtained. PROCEDURE: After proper identification of patient and correct operative site, patient was brought to the operating room, placed supine on the table, all prominences well padded. Sedation and regional anesthesia were given. Intravenous antibiotics were given. Timeout procedure was performed. Left upper extremity was prepped and draped in usual sterile fashion. Well-padded tourniquet was placed over the sterile prep. Esmarch bandage to exsanguinate left upper extremity. Tourniquet was inflated to 250 mmHg. Curvilinear incision made over the base of the thumb metacarpal at the carpometacarpal joint. Incision was taken sharply through skin with blunt and sharp dissection through subcutaneous tissues. Thenar muscles were elevated off of the carpometacarpal joint and the carpometacarpal joint was divided with a capsulotomy longitudinally. This exposed a very arthritic carpometacarpal joint. Subperiosteal elevation was performed around the trapezium and the trapezium was incised in whole. Mild arthrosis was noted at the distal pole of the scaphoid as well, but there was no significant STT arthrosis. An Arthrex SwiveLock anchor was then placed into the base of the 2nd metacarpal and a FiberTape suture was used as a suspension plasty and secured to the base of the thumb metacarpal with the thumb in appropriate tension and position. This provided an excellent arthroplasty space and full range of motion was achievable. Correct alignment was achieved as well. Flexor carpi radialis remained intact. The capsule was closed in a [id number] fashion and augmented with a tendon transfer from the abductor pollicis brevis to the abductor pollicis longus tendon. This provided secure fixation of the carpometacarpal joint. The wound was repaired in layers using 4-0 Vicryl and 4-0 Monocryl suture. Second incision was made over the base of the palm over the carpal tunnel. The incision was taken sharply through skin with blunt and sharp dissection through subcutaneous tissues. Palmar fascia was divided longitudinally. Transcarpal ligament was divided longitudinally along with the distal 4 cm of antebrachial fascia under direct visualization with loupe magnification. This provided complete release of the median nerve at the wrist. Wound was irrigated and repaired with 5-0 fast-absorbing plain gut suture. Sterile dressings were applied. Splint was placed. Patient reversed from anesthesia, brought to the recovery room in stable condition. Brooks gAuayo, the licensed sales assistant, was integral throughout this procedure. He was necessary to hold proper tension during the reconstruction and suspension plasty and tendon transfer. This procedure could not have been done without a skilled operative licensed sales assistant. Americo [id number]
[2020-02-11 09:57] VITALS: BP 101/68; PULSE 66
== END 2020-02-11 10:08 | disposition home or self-care (01) ==
LOC: FASU 06:12
PROVIDERS: ATTEND Orthopaedic Surgery Hand Surgery
PROC: 0RQT0ZZ Repair Left Carpometacarpal Joint, Open Approach (ICD-10-PCS; 2020-02-11)
PROC: 01N50ZZ Release Median Nerve, Open Approach (ICD-10-PCS; 2020-02-11)
PROC: 0LX80ZZ Transfer Left Hand Tendon, Open Approach (ICD-10-PCS; principal; 2020-02-11 07:57)
DX: M18.12 Unilateral primary osteoarthritis of first carpometacarpal joint, left hand (principal); G56.02 Carpal tunnel syndrome, left upper limb
CPT/HCPCS: 82962